=== PATIENT | male | born 1995 | race Caucasian/White ===

== ENCOUNTER 2016-03-22 07:13 | Inpatient (IN) | payer SELFPAY ==
[2016-03-22] MEDS ORDERED: ONDANSETRON HCL INJ/PF 4 MG/2 ML SDV IV ONE (08:00)
--- NOTE | 2016-03-22 08:02 | ER Document Report ---
ED General - General Mode of Arrival: Ambulatory Information source: Patient TRAVEL OUTSIDE OF THE [place] IN LAST 30 DAYS: No - HPI Patient complains to provider of: High Blood Sugar Onset: This morning - 06:00 Onset/Duration: Sudden Associated symptoms: Nausea, Vomiting <ELEUTERIO BLANCHARD - Last Filed: 03/22/16 08:03> <ONEL ROBERT - Last Filed: 03/22/16 09:46> - General Chief Complaint: High Blood Sugar Stated Complaint: VOMITING Notes: Patient is a 21-year-old male presenting to the emergency department due to problems with his blood sugar. Patient states that this started around 06:00 today. Patient denies missing any insulin. Patient is nauseous and vomiting. Patient states that his blood sugar was actually low this morning, but now it is extremely high at 583. (ELEUTERIO BLANCHARD) - Related Data Allergies/Adverse Reactions: No Known Allergies Allergy (Verified 03/22/16 07:30) Past Medical History - General Information source: Patient - Social History Smoking Status: Never Smoker Chew tobacco use (# tins/day): No Frequency of alcohol use: Occasional Drug Abuse: None Family History: Reviewed & Not Pertinent, DM, Hypertension Patient has suicidal ideation: No Patient has homicidal ideation: No - Past Medical History Cardiac Medical History: Reports: Hx Hypercholesterolemia Endocrine Medical History: Reports: Hx Diabetes Mellitus Type 1 Psychiatric Medical History: Reports: Hx Depression Past Surgical History: Reports: Hx Appendectomy - Immunizations Hx Diphtheria, Pertussis, Tetanus Vaccination: Yes Hx Pneumococcal Vaccination: 03/17/15 <ELEUTERIO BLANCHARD - Last Filed: 03/22/16 08:03> Review of Systems - Review of Systems Constitutional: See HPI, Other - High Blood Sugar EENT: No symptoms reported Cardiovascular: No symptoms reported Respiratory: No symptoms reported Gastrointestinal: See HPI, Nausea, Vomiting Genitourinary: No symptoms reported Male Genitourinary: No symptoms reported Musculoskeletal: No symptoms reported Skin: No symptoms reported Hematologic/Lymphatic: No symptoms reported Neurological/Psychological: No symptoms reported -: Yes All other systems reviewed and negative <ELEUTERIO BLANCHARD - Last Filed: 03/22/16 08:03> Physical Exam - Vital signs Interpretation: Hypertensive, Tachycardic, Tachypneic - General General appearance: Alert - HEENT Head: Normocephalic, Atraumatic Eyes: Normal Pupils: PERRL Mucous membranes: Dry - Respiratory Respiratory status: Tachypnea Chest status: Nontender Breath sounds: Normal Chest palpation: Normal - Cardiovascular Rhythm: Tachycardia Heart sounds: Normal auscultation Murmur: No - Abdominal Inspection: Normal Distension: No distension Bowel sounds: Normal Tenderness: Nontender Organomegaly: No organomegaly - Back Back: Normal, Nontender - Extremities General upper extremity: Normal inspection, Nontender, Normal color, Normal temperature. No: Edema General lower extremity: Normal inspection, Nontender, Normal color, Normal temperature. No: Edema - Neurological Neuro grossly intact: Yes Cognition: Normal [place] Coma Scale Eye Opening: Spontaneous [place] Coma Scale Verbal: Oriented [place] Coma Scale Motor: Obeys Commands [place] Coma Scale Total: 15 Speech: Normal - Psychological Associated symptoms: Normal affect, Normal mood - Skin Skin Temperature: Warm Skin Moisture: Dry Skin Color: Normal <ELEUTERIO BLANCHARD - Last Filed: 03/22/16 08:03> Course - Laboratory Result Diagrams: 03/22/16 09:00 03/22/16 07:45 - EKG Interpretation by Ia EKG shows normal: Sinus rhythm, [place], Intervals, QRS Complexes. abnormal: ST-T Waves - Borderline inferior T abnormalities Rate: Tachycardia - 132 When compared to previous EKG there are: No significant change - Consults Dr. Diallo Time consulted: 08:55 Consulted provider: will come to ER <ONEL ROBERT - Last Filed: 03/22/16 09:46> - Vital Signs Vital signs: Temp Pulse Resp BP Pulse Ox 97.5 F 153 H 12 137/61 H 99 03/22/16 07:29 03/22/16 07:29 03/22/16 09:00 03/22/16 08:31 03/22/16 09:00 (ELEUTERIO BLANCHARD) (ONEL ROBERT) - Laboratory Laboratory results interpreted by nc: 03/22/16 03/22/16 03/22/16 07:45 08:20 09:00 WBC 14.3 H Seg Neutrophils % 83.2 H Lymphocytes % 12.2 L Absolute Neutrophils 11.9 H VBG pH 7.11 L* VBG pCO2 22.6 L VBG HCO3 7.0 L Chloride 92 L Carbon Dioxide < 5 L* Glucose 625 H* POC Glucose Phosphorus 5.1 H Alkaline Phosphatase 133 H Creatine Kinase 33 L Urine Glucose (UA) Urine Ketones 03/22/16 03/22/16 09:00 09:24 WBC Seg Neutrophils % Lymphocytes % Absolute Neutrophils VBG pH VBG pCO2 VBG HCO3 Chloride Carbon Dioxide Glucose POC Glucose > 550 H* Phosphorus Alkaline Phosphatase Creatine Kinase Urine Glucose (UA) >=500 H Urine Ketones 80 H (ONEL ROBERT) Critical Care Note - Critical Care Note Total time excluding time spent on procedures (mins): 35 <ONEL ROBERT - Last Filed: 03/22/16 09:46> Discharge <ELEUTERIO BLANCHARD - Last Filed: 03/22/16 08:03> - Discharge Admitting Provider: Hospitalist Unit Admitted: [facility] <ONEL ROBERT - Last Filed: 03/22/16 09:46> - Discharge Clinical Impression: Diabetic ketoacidosis Condition: Fair Disposition: ADMITTED INPATIENT Scribe Attestation: 03/22/16 08:57 I personally performed the services described in the documentation, reviewed and edited the documentation which was dictated to the scribe in my presence, and it accurately records my words and actions. (ONEL ROBERT) Scribe Documentation - Scribe Written by Scribjuli:: Eleuterio Blanchard 03/22/2016 08:02 acting as scribe for :: Sujatha <ELEUTERIO BLANCHARD - Last Filed: 03/22/16 08:03>
[2016-03-22] MEDS ORDERED: INSULIN REG, HUMAN 100 UNIT/ML 3 ML VIAL (PYX) IV ONE (08:03)
[2016-03-22 08:19] LABS: ALANINE AMINOTRANSFERASE 42 U/L (21-72); ALBUMIN 4.9 g/dL (3.5-5.0); ALKALINE PHOSPHATASE 133 U/L (38-126); ASPARTATE AMINO TRANSFERASE 26 U/L (17-59); BILIRUBIN,TOTAL 0.7 mg/dL (0.2-1.3); BLOOD UREA NITROGEN 13 mg/dL (7-20); CALCIUM 10.1 mg/dL (8.4-10.2); CHLORIDE 92 mmol/L (98-107); CREATINE KINASE 33 U/L (55-170); CREATININE RESULT 0.89 mg/dL (0.52-1.25); MAGNESIUM 1.8 mg/dL (1.6-2.3); PHOSPHORUS 5.1 mg/dL (2.5-4.5); POTASSIUM 4.9 mmol/L (3.6-5.0); TOTAL PROTEIN 7.8 g/dL (6.3-8.2)
[2016-03-22] MEDS: NORMAL SALINE 1000 ML 1,000 ML IV PRN ×2 (08:20→22:15)
[2016-03-22 08:43] LABS: CARBON DIOXIDE < 5 mmol/L (22-30); GLUCOSE 625 mg/dL (75-110)
[2016-03-22 08:51] LABS: VENOUS BLOOD BASE EXCESS -20.7 mmol/L; VENOUS BLOOD PCO2 22.6 mmHg (35-63)
[2016-03-22 08:52] LABS: VENOUS BLOOD PH 7.11 (7.30-7.42)
[2016-03-22 09:24] LABS: ABSOLUTE LYMPHOCYTES (AUTO) 1.8 10^3/uL (0.5-4.7); ABSOLUTE MONOCYTES (AUTO) 0.6 10^3/uL (0.1-1.4); ABSOLUTE NEUT (AUTO) 11.9 10^3/uL (1.7-8.2); BASOPHILS % (AUTO) 0.2 % (0-2); HEMATOCRIT 43.8 % (37.9-51.0); HEMOGLOBIN 14.5 g/dL (13.5-17.0); HGB HCT DIFFERENCE -0.3; LYMPHOCYTES % (AUTO) 12.2 % (13-45); MEAN CORPUSCULAR HEMOGLOBIN 31.6 pg (27.0-33.4); MEAN CORPUSCULAR HGB CONC 33.1 g/dL (32.0-36.0); MONOCYTES % (AUTO) 4.4 % (3-13); RED BLOOD COUNT 4.58 10^6/uL (4.35-5.55); RED CELL DISTRIBUTION WIDTH 13.9 % (11.5-14.0); SEGMENTED NEUTROPHILS % (AUTO) 83.2 % (42-78); WHITE BLOOD COUNT 14.3 10^3/uL (4.0-10.5)
[2016-03-22 09:28] LABS: APPEARANCE,URINE CLEAR; BILIRUBIN,URINE NEGATIVE (NEGATIVE); GLUCOSE, URINE >=500 mg/dL (NEGATIVE); KETONES,URINE 80 mg/dL (NEGATIVE); LEUKOCYTE ESTERASE,URINE NEGATIVE (NEGATIVE); NITRITE,URINE NEGATIVE (NEGATIVE); PROTEIN,URINE NEGATIVE (NEGATIVE); URINE SPECIFIC GRAVITY 1.024; UROBILINOGEN,URINE NEGATIVE mg/dL (<2.0)
[2016-03-22 09:35] LABS: MEAN CORPUSCULAR VOLUME 96 fl (80-97)
[2016-03-22] MEDS ORDERED: ACETAMINOPHEN 325 MG TABLET PO PRN (09:38)
[2016-03-22] MEDS ORDERED: ONDANSETRON HCL INJ/PF 4 MG/2 ML SDV IV PRN (09:38)
[2016-03-22] MEDS ORDERED: NORMAL SALINE 1000 ML 1,000 ML IV PRN (09:38)
[2016-03-22] MEDS ORDERED: GLUCAGON,HUMAN RECOMB 1 MG INJ IM PRN ×2 (09:43→19:58)
[2016-03-22] MEDS ORDERED: NORMAL SALINE 100 ML with INSULIN REGULAR, HUMAN 100 UNIT IV PRN ×2 (09:43)
[2016-03-22] MEDS ORDERED: DEXTROSE 50%-WATER 25 GM/50 ML DISP.SYRIN IV PRN ×4 (09:43→19:58)
[2016-03-22] MEDS ORDERED: DEXTROSE 40% GEL 15 GM TUBE PO PRN ×4 (09:43→19:58)
--- NOTE | 2016-03-22 10:18 | EKG REPORT ---
SEVERITY:- BORDERLINE ECG - SINUS TACHYCARDIA BORDERLINE T ABNORMALITIES, INFERIOR LEADS : Confirmed by: Anurag Mata 22-Mar-2016 10:17:58
--- NOTE | 2016-03-22 12:11 | PDOC H&P ---
History of Present Illness Admission Date/PCP: 03/22/16 09:32 Patient complains of: Elevated blood sugars. History of Present Illness: ACE POSADA is a 21 year old male who has had multiple admissions over the last year for diabetic ketoacidosis. The patient was last discharged from this hospital on 03/07/2016. Patient reports that since his discharge in February he has been doing relatively well until yesterday. He began to feel nauseous yesterday and this morning has had problems with vomiting nausea as well as some abdominal discomfort. Patient reports his blood sugars have been reading high at home. The patient when he presented to emergency room was found to have DKA with bicarbonate less than 5. Patient denies any fevers or chills or cough. He denies any dysuria but does have polyuria and polydipsia. Patient denies abdominal pain. Denies any diarrhea or melena. He denies being around anybody who is sick. Past Medical History Cardiac Medical History: Reports: Hyperlipidema EENT Medical History: Reports: None Neurological Medical History: Reports: None Endocrine Medical History: Reports: Diabetes Mellitus Type 1 Renal/ Medical History: Reports: None Malignancy Medical History: Reports: None GI Medical History: Reports: None Skin Medical History: Reports: None Psychiatric Medical History: Reports: Depression Traumatic Medical History: Reports: None Infectious Medical History: Reports: None Past Surgical History Past Surgical History: Reports: Appendectomy Social History Information Source: Patient Lives with: Family Smoking Status: Never Smoker Frequency of Alcohol Use: Rare Hx Recreational Drug Use: No Drugs: None Hx Prescription Drug Abuse: No - Advance Directive Resuscitation Status: Full Code Family History Family History: DM, Hypertension Parental Family History Reviewed: Yes Children Family History Reviewed: No Sibling(s) Family History Reviewed.: No Medication/Allergy Home Medications: Cholecalciferol (Vitamin D3) [D3-2000] 2,000 units PO DAILY 03/22/16 Citalopram Hydrobromide [Celexa 40 mg Tablet] 40 mg PO DAILY 03/22/16 Insulin Aspart [Novolog Insulin (Aspart) 100 unit/mL] See Protocol SQ ASDIR PRN 03/22/16 Insulin Glargine,Hum.rec.anlog [Lantus Solostar] 40 units SQ Q12 03/22/16 Allergies/Adverse Reactions: No Known Allergies Allergy (Verified 03/22/16 07:30) Review of Systems Constitutional: ABSENT: chills, fever(s), headache(s), weight gain, weight loss Eyes: ABSENT: visual disturbances Ears: ABSENT: hearing changes Cardiovascular: ABSENT: chest pain, dyspnea on exertion, edema, orthropnea, palpitations Respiratory: PRESENT: cough. ABSENT: dyspnea, hemoptysis Gastrointestinal: PRESENT: abdominal pain, heartburn, nausea. ABSENT: hematochezia, melena, vomiting Musculoskeletal: ABSENT: joint swelling Integumentary: ABSENT: rash, wounds Psychiatric: PRESENT: depression Endocrine: PRESENT: polydipsia, polyphagia, polyuria Hematologic/Lymphatic: ABSENT: easy bleeding, easy bruising Physical Exam Vital Signs: Temp Pulse Resp BP Pulse Ox 97.5 F 153 H 14 146/85 H 100 03/22/16 07:29 03/22/16 07:29 03/22/16 10:01 03/22/16 10:01 03/22/16 10:01 General appearance: PRESENT: well-developed, well-nourished Head exam: PRESENT: atraumatic, normocephalic Eye exam: PRESENT: conjunctiva pink, EOMI, PERRLA. ABSENT: scleral icterus Ear exam: PRESENT: normal external ear exam Mouth exam: PRESENT: dry mucosa Neck exam: ABSENT: carotid bruit, JVD, lymphadenopathy, thyromegaly Respiratory exam: PRESENT: clear to auscultation saul. ABSENT: rales, rhonchi, wheezes Cardiovascular exam: PRESENT: RRR. ABSENT: diastolic murmur, rubs, systolic murmur Pulses: PRESENT: normal dorsalis pedis pul GI/Abdominal exam: PRESENT: normal bowel sounds, soft. ABSENT: distended, guarding, mass, organolmegaly, rebound, tenderness Rectal exam: PRESENT: deferred Extremities exam: ABSENT: calf tenderness, clubbing, pedal edema Neurological exam: PRESENT: alert, awake, oriented to person, oriented to place , oriented to time, oriented to situation Psychiatric exam: PRESENT: appropriate affect Skin exam: PRESENT: dry, intact, warm. ABSENT: cyanosis, rash Assessment & Plan - Diagnosis (1) DKA (diabetic ketoacidoses) Qualifiers: Diabetes mellitus type: type 1 Diabetes mellitus complication detail: without coma Qualified Code(s): E10.10 - Type 1 diabetes mellitus with ketoacidosis without coma Is this a current diagnosis for this admission?: YesPlan: Patient has relatively sudden onset of nausea vomiting crampy abdominal pain all suggestive of either a viral gastritis versus gastroparesis given his long history diabetes. We will continue with IV fluids as started emergency. Also continue with an insulin drip per protocol. Will check fingerstick blood sugars every hour and check chemistry labs every 4 hours. (2) IDDM (insulin dependent diabetes mellitus) Is this a current diagnosis for this admission?: YesPlan: Patient reports that he's been compliant with his outpatient insulin. (4) DVT prophylaxis Is this a current diagnosis for this admission?: YesPlan: Patient is ambulatory and does not need DVT prophylaxis this time. (5) Anxiety and depression Is this a current diagnosis for this admission?: YesPlan: Stable - Time Time Spent: 50 to 70 Minutes - Inpatient Certification Medical Necessity: Need For IV Fluids
[2016-03-22] MEDS ORDERED: DEXTROSE 5%-1/2 NORMAL SALINE 1,000 ML IV PRN (17:39)
[2016-03-22] MEDS: FAMOTIDINE INJ/PF 20 MG/2 ML SDV IV SCH ×2 (18:33→22:14)
[2016-03-22 19:22] LABS: ANION GAP 14 (5-19); BLOOD UREA NITROGEN 8 mg/dL (7-20); CALCIUM 8.6 mg/dL (8.4-10.2); CHLORIDE 103 mmol/L (98-107); CREATININE RESULT 0.65 mg/dL (0.52-1.25); GLUCOSE 86 mg/dL (75-110); SODIUM 137.7 mmol/L (137-145)
[2016-03-22 19:43] LABS: CARBON DIOXIDE 21 mmol/L (22-30); POTASSIUM 3.9 mmol/L (3.6-5.0)
[2016-03-22] MEDS: INSULIN GLARGINE,HUM.REC.ANLOG 300 UNIT/3 ML INSULN.PEN SUBCUT SCH (22:14)
[2016-03-22] MEDS: INSULIN LISPRO 100 UNIT/ML 3 ML VIAL SUBCUT PRN (22:14)
[2016-03-22 22:31] LABS: ANION GAP 16 (5-19); BLOOD UREA NITROGEN 10 mg/dL (7-20); CALCIUM 8.9 mg/dL (8.4-10.2); CARBON DIOXIDE 17 mmol/L (22-30); CHLORIDE 101 mmol/L (98-107); CREATININE RESULT 0.73 mg/dL (0.52-1.25); GLUCOSE 226 mg/dL (75-110); SODIUM 134.4 mmol/L (137-145)
[2016-03-23] MEDS: INSULIN LISPRO 100 UNIT/ML 3 ML VIAL SUBCUT PRN (04:20)
[2016-03-23 05:06] LABS: HEMATOCRIT 35.2 % (37.9-51.0); HGB HCT DIFFERENCE 1.4; MEAN CORPUSCULAR HEMOGLOBIN 31.4 pg (27.0-33.4); MEAN CORPUSCULAR HGB CONC 34.5 g/dL (32.0-36.0); RED BLOOD COUNT 3.86 10^6/uL (4.35-5.55); RED CELL DISTRIBUTION WIDTH 13.6 % (11.5-14.0); WHITE BLOOD COUNT 7.9 10^3/uL (4.0-10.5)
[2016-03-23 05:07] LABS: HEMOGLOBIN 12.2 g/dL (13.5-17.0); MEAN CORPUSCULAR VOLUME 91 fl (80-97)
[2016-03-23 05:10] LABS: ANION GAP 11 (5-19); BLOOD UREA NITROGEN 13 mg/dL (7-20); CALCIUM 9.3 mg/dL (8.4-10.2); CARBON DIOXIDE 20 mmol/L (22-30); CHLORIDE 103 mmol/L (98-107); CREATININE RESULT 0.68 mg/dL (0.52-1.25); GLUCOSE 250 mg/dL (75-110); POTASSIUM 4.3 mmol/L (3.6-5.0); SODIUM 134.4 mmol/L (137-145)
[2016-03-23 09:02] VITALS: BP 140/69
--- NOTE | 2016-03-23 09:48 | PDOC DISCHARGE SUMMARY ---
General - Admit/Disc Date/PCP Admission Date/Primary Care Provider: 03/22/16 09:32 Discharge Date: 03/23/16 - Discharge Diagnosis (1) DKA (diabetic ketoacidoses) Is this a current diagnosis for this admission?: Yes (2) IDDM (insulin dependent diabetes mellitus) Is this a current diagnosis for this admission?: Yes (4) DVT prophylaxis Is this a current diagnosis for this admission?: Yes (5) Anxiety and depression Is this a current diagnosis for this admission?: Yes - Additional Information Resuscitation Status: Full Code Discharge Diet: Diabetic Discharge Activity: Activity As Tolerated Home Medications: Cholecalciferol (Vitamin D3) [D3-2000] 2,000 units PO DAILY 03/22/16 Citalopram Hydrobromide [Celexa 40 mg Tablet] 40 mg PO DAILY 03/22/16 Insulin Aspart [Novolog Insulin (Aspart) 100 unit/mL] See Protocol SQ ASDIR PRN 03/22/16 Insulin Glargine,Hum.rec.anlog [Lantus Solostar] 40 units SQ Q12 #1 ml 03/23/16 History of Present Illness History of Present Illness: ACE POSADA is a 21 year old male who has had multiple admissions over the last year for diabetic ketoacidosis. The patient was last discharged from this hospital on 03/07/2016. Patient reports that since his discharge in February he has been doing relatively well until yesterday. He began to feel nauseous yesterday and this morning has had problems with vomiting nausea as well as some abdominal discomfort. Patient reports his blood sugars have been reading high at home. The patient when he presented to emergency room was found to have DKA with bicarbonate less than 5. Patient denies any fevers or chills or cough. He denies any dysuria but does have polyuria and polydipsia. Patient denies abdominal pain. Denies any diarrhea or melena. He denies being around anybody who is sick. Hospital Course Hospital Course: 21-year-old gentleman who presented with DKA. Patient was started on IV fluids and an insulin drip and had quick resolution of his DKA. Patient was put back on his usual dose of Lantus and had no further evidence of hyperglycemia. The patient reports she's been compliant with his medications although his sugars was normalized when he is put on his usual home dose here at the hospital. I have recommended the patient that he go to [place] to be evaluated by endocrinology. He currently does not have medical insurance [facility]. Physical Exam Vital Signs: Temp Pulse Resp BP Pulse Ox 98.0 F 81 18 140/69 H 98 03/23/16 09:00 03/23/16 09:00 03/23/16 09:00 03/23/16 09:00 03/23/16 09:00 Intake & Output 03/22/16 03/23/16 03/24/16 06:59 06:59 06:59 Intake Total 2466 Output Total 1580 Balance 886 Weight 65.5 kg General appearance: PRESENT: no acute distress Eye exam: PRESENT: conjunctiva pink Mouth exam: PRESENT: moist, tongue midline Neck exam: ABSENT: JVD Respiratory exam: PRESENT: clear to auscultation saul. ABSENT: rales, rhonchi, wheezes Cardiovascular exam: PRESENT: RRR. ABSENT: diastolic murmur, rubs, systolic murmur GI/Abdominal exam: PRESENT: normal bowel sounds, soft. ABSENT: distended, guarding, mass, organolmegaly, rebound, tenderness Extremities exam: ABSENT: calf tenderness, clubbing, pedal edema Neurological exam: PRESENT: alert, awake Psychiatric exam: PRESENT: appropriate affect Skin exam: PRESENT: dry, intact, warm. ABSENT: cyanosis, rash Results Laboratory Results: 03/23/16 04:20 03/23/16 04:20 03/22/16 03/22/16 03/23/16 18:36 22:08 04:20 WBC 7.9 RBC 3.86 L Hgb 12.2 L D Hct 35.2 L MCV 91 D MCH 31.4 MCHC 34.5 RDW 13.6 Plt Count 265 Sodium 137.7 134.4 L Potassium 3.9 D 4.0 Chloride 103 101 Carbon Dioxide 21 L D 17 L Anion Gap 14 16 BUN 8 10 Creatinine 0.65 0.73 Est GFR ( Amer) > 60 > 60 Est GFR (Non-Af Amer) > 60 > 60 Glucose 86 226 H Calcium 8.6 8.9 03/23/16 04:20 WBC RBC Hgb Hct MCV MCH MCHC RDW Plt Count Sodium 134.4 L Potassium 4.3 Chloride 103 Carbon Dioxide 20 L Anion Gap 11 BUN 13 Creatinine 0.68 Est GFR ( Amer) > 60 Est GFR (Non-Af Amer) > 60 Glucose 250 H Calcium 9.3 Qualifiers [place] BEING DISCHARGED WITH ANY OF THE FOLLOWING DIAGNOSIS?: No Plan Discharge Plan: Patient is discharged to home. Time Spent: Less than 30 Minutes
[2016-03-23] MEDS: INSULIN GLARGINE,HUM.REC.ANLOG 300 UNIT/3 ML INSULN.PEN SUBCUT SCH (10:22)
[2016-03-23] MEDS: FAMOTIDINE INJ/PF 20 MG/2 ML SDV IV SCH (10:24)
== END 2016-03-23 10:45 | disposition home or self-care (01) | DRG 639 ==
LOC: ER 07:13 → EH 09:32 → UNDOADMIN 09:51 → EH 10:39 → 3N 10:39
PROVIDERS: ADMIT Internal Medicine; ATTEND Internal Medicine
DX: E10.10 Type 1 diabetes mellitus with ketoacidosis without coma (principal); E78.5 Hyperlipidemia, unspecified; F41.9 Anxiety disorder, unspecified; F32.9 Major depressive disorder, single episode, unspecified; Z79.4 Long term (current) use of insulin; Z90.49 Acquired absence of other specified parts of digestive tract; Z83.3 Family history of diabetes mellitus; Z82.49 Family history of ischemic heart disease and other diseases of the circulatory system; Z59.9 Problem related to housing and economic circumstances, unspecified
CPT/HCPCS: 36415; 80048; 80053; 81001; 82550; 82803; 82962; 83735; 84100; 85025; 85027; 87040; 93005; 93010; 96361; 96374; 99291; J1815; J2405; J3490; J7030; S0028

== ENCOUNTER 2016-04-04 13:26 | Emergency (ER) | payer SELFPAY ==
[2016-04-04] MEDS ORDERED: NORMAL SALINE 1000 ML 1,000 ML IV PRN ×2 (13:48→15:18)
[2016-04-04] MEDS ORDERED: ONDANSETRON HCL INJ/PF 4 MG/2 ML SDV IV ONE (13:48)
--- NOTE | 2016-04-04 13:58 | ER Document Report ---
ED General - General Chief Complaint: High Blood Sugar Stated Complaint: BLOOD SUGAR ISSUES Time seen by provider: 13:45 Mode of Arrival: Medic Information source: Patient Notes: 21-year-old male with history of type I diabetes and multiple admissions for DKA who presents reporting his blood sugar read high on his meter this morning. Patient reports he has been compliant with his diabetic medications and diet. He took NovoLog 10 units about 10:00 this morning and then at 10:30 his glucose About 240 11:00 it was 420. And at 11:30 was too high to read. On arrival here is 238. The patient reports she's had nonproductive cough for 2 day but denies fever, chills, diarrhea, earache, sore throat, chest pain, abdominal pain , or back pain. He has had some mild nausea this morning but no vomiting. He reports being in usual state of health otherwise recently Physical Exam: General: Alert, appears well. HEENT: Normocephalic. Atraumatic. PERRLA. Extraocular movements intact. Oropharynx clear. Neck: Supple. Non-tender. Respiratory: No respiratory distress. Clear and equal breath sounds bilaterally. Cardiovascular: Regular rate and rhythm. Abdominal: Normal Inspection. Soft, non-tender. No distension. Normal Bowel Sounds. Back: Non-tender. No deformity or step off. Extremities: Moves all four extremities. Upper extremities: Normal inspection. Non-tender. Normal color. Normal ROM. Normal temperature. Lower extremities: Normal inspection. Non-tender. No edema. Normal color. Normal ROM. Normal temperature. Neurological: Cranial nerves II-XII grossly intact bilaterally. Strength 5/5 throughout. Sensation intact to light touch. Normal cognition. AAOx4. Normal speech. Psychological: Normal affect. Normal Mood. Skin: Warm. Dry. Normal color. TRAVEL OUTSIDE OF THE [place] IN LAST 30 DAYS: No - Related Data Allergies/Adverse Reactions: No Known Allergies Allergy (Verified 03/22/16 07:30) Past Medical History - Social History Smoking Status: Never Smoker Family History: DM, Hypertension - Past Medical History Cardiac Medical History: Reports: Hx Hypercholesterolemia Endocrine Medical History: Reports: Hx Diabetes Mellitus Type 1 Psychiatric Medical History: Reports: Hx Depression Past Surgical History: Reports: Hx Appendectomy - Immunizations Hx Diphtheria, Pertussis, Tetanus Vaccination: Yes Hx Pneumococcal Vaccination: 03/17/15 Review of Systems - Review of Systems Constitutional: denies: Chills, Fever EENT: denies: Ear pain, Throat pain Cardiovascular: denies: Chest pain, Dyspnea Respiratory: Cough. denies: Short of breath Gastrointestinal: Nausea. denies: Abdominal pain, Diarrhea, Vomiting Genitourinary: denies: Burning, Dysuria Hematologic/Lymphatic: denies: Swollen glands Neurological/Psychological: denies: Weakness, Numbness Physical Exam - Vital signs Vitals: Resp Pulse Ox 14 99 04/04/16 13:45 04/04/16 13:45 Course - Re-evaluation Re-evalutation: 04/04/16 18:29 Patient's initial labs are my opinion borderline admission for DKA. Review patient's charts and discussed case with Dr. Heath for the hospitalist service given his multiple prior admissions for DKA and his obvious noncompliance in spite of his protestations to the contrary. Think there is a certain futility and admitting him in his current state given the fact that he is likely close to where he always lives in a Patient in emergent department with aggressive IV hydration. Without any other interventions his glucose is coming down 120 and repeat basic metabolic panel shows an improvement in his total CO2 and resolution of his anion gap. I believe at this point he is safe for discharge and while he is not 100% normal he is likely about as good as he is going to get. Mother is in the room and I discussed with both of them the importance of frequent blood sugar checks and compliance with his diabetic regimen as this is a life-threatening condition that will cut his life short swiftly if he does not do a better job of managing his glucose. He indicates agreement. - Vital Signs Vital signs: Temp Pulse Resp BP Pulse Ox 97.5 F 102 H 12 125/69 100 04/04/16 13:59 04/04/16 13:59 04/04/16 18:00 04/04/16 17:01 04/04/16 18:00 - Laboratory Result Diagrams: 04/04/16 13:50 04/04/16 17:45 Laboratory results interpreted by me: 04/04/16 04/04/16 04/04/16 13:50 13:50 14:20 Carbonic Acid ABG pH ABG pCO2 ABG pO2 ABG HCO3 ABG Total CO2 Chloride 97 L Carbon Dioxide 16 L Anion Gap 24 H Glucose 239 H POC Glucose 238 H Albumin 5.2 H Urine Glucose (UA) >=500 H Urine Ketones 80 H 04/04/16 04/04/16 04/04/16 15:45 16:51 17:45 Carbonic Acid 1.03 L ABG pH 7.33 L ABG pCO2 34.2 L ABG pO2 103.7 H ABG HCO3 17.7 L ABG Total CO2 18.8 L Chloride Carbon Dioxide 19 L Anion Gap Glucose POC Glucose 121 H Albumin Urine Glucose (UA) Urine Ketones - Diagnostic Test Radiology reviewed: Image reviewed, Reports reviewed Discharge - Discharge Clinical Impression: Hyperglycemia due to type 1 diabetes mellitus Condition: Stable Disposition: HOME, SELF-CARE Additional Instructions: Diabetes You have an abnormally high blood sugar, suspicious for diabetes. Not all high blood sugar requires long-term treatment. High blood sugar can be due to medications, , or the stress of illness. (These cases are "borderline diabetes.") If the doctor feels your high blood sugar might get better with time, you may not require treatment now. You will be scheduled for further evaluation. It's very important that you follow through. Uncontrolled high blood sugar leads to early heart disease , strokes, nerve damage, eye damage, and kidney damage. All diabetics should follow a diet designed to control the blood sugar. Overweight diabetics should exercise regularly and lose weight. If this is not sufficient to control the blood sugar, pills or insulin shots are necessary. Younger people who develop diabetes almost always require insulin daily. Home testing of blood sugars or urine sugar is required. Diabetic teaching is available to help you figure insulin doses and monitor the blood sugar. Call the physician if there is faintness, excess sleepiness, or very rapid breathing. If hypoglycemia (LOW blood sugar) develops, symptoms are shakiness, weakness, sweating, and confusion. In this case, you should eat or drink something with sugar at once. Referrals: PELON FREEMAN MD [HONORARY] - Follow up in 1 week
[2016-04-04 14:17] LABS: ABSOLUTE LYMPHOCYTES (AUTO) 3.2 10^3/uL (0.5-4.7); ABSOLUTE MONOCYTES (AUTO) 0.5 10^3/uL (0.1-1.4); ABSOLUTE NEUT (AUTO) 5.8 10^3/uL (1.7-8.2); BASOPHILS % (AUTO) 0.4 % (0-2); HEMATOCRIT 45.3 % (37.9-51.0); HEMOGLOBIN 14.6 g/dL (13.5-17.0); HGB HCT DIFFERENCE -1.5; LYMPHOCYTES % (AUTO) 33.7 % (13-45); MEAN CORPUSCULAR HEMOGLOBIN 30.3 pg (27.0-33.4); MEAN CORPUSCULAR HGB CONC 32.3 g/dL (32.0-36.0); MEAN CORPUSCULAR VOLUME 94 fl (80-97); MONOCYTES % (AUTO) 5.2 % (3-13); RED BLOOD COUNT 4.82 10^6/uL (4.35-5.55); RED CELL DISTRIBUTION WIDTH 13.5 % (11.5-14.0); SEGMENTED NEUTROPHILS % (AUTO) 60.7 % (42-78); WHITE BLOOD COUNT 9.6 10^3/uL (4.0-10.5)
[2016-04-04 14:27] LABS: ALANINE AMINOTRANSFERASE 29 U/L (21-72); ALBUMIN 5.2 g/dL (3.5-5.0); ALKALINE PHOSPHATASE 86 U/L (38-126); ASPARTATE AMINO TRANSFERASE 22 U/L (17-59); BILIRUBIN,TOTAL 1.1 mg/dL (0.2-1.3); BLOOD UREA NITROGEN 17 mg/dL (7-20); CALCIUM 10.2 mg/dL (8.4-10.2); CARBON DIOXIDE 16 mmol/L (22-30); CHLORIDE 97 mmol/L (98-107); CREATININE RESULT 0.71 mg/dL (0.52-1.25); GLUCOSE 239 mg/dL (75-110); MAGNESIUM 1.6 mg/dL (1.6-2.3); POTASSIUM 4.4 mmol/L (3.6-5.0); SODIUM 137.4 mmol/L (137-145); TOTAL PROTEIN 7.8 g/dL (6.3-8.2)
[2016-04-04 14:33] LABS: ANION GAP 24 (5-19)
[2016-04-04 14:46] LABS: APPEARANCE,URINE CLEAR; BILIRUBIN,URINE NEGATIVE (NEGATIVE); GLUCOSE, URINE >=500 mg/dL (NEGATIVE); KETONES,URINE 80 mg/dL (NEGATIVE); LEUKOCYTE ESTERASE,URINE NEGATIVE (NEGATIVE); NITRITE,URINE NEGATIVE (NEGATIVE); PROTEIN,URINE NEGATIVE (NEGATIVE); URINE SPECIFIC GRAVITY 1.026; UROBILINOGEN,URINE NEGATIVE mg/dL (<2.0)
[2016-04-04 16:02] LABS: ARTERIAL BLOOD BASE EXCESS -7.3 mmol/L; ARTERIAL BLOOD O2 SATURATION 97.5 % (94-98)
[2016-04-04 18:14] LABS: ANION GAP 14 (5-19); BLOOD UREA NITROGEN 14 mg/dL (7-20); CALCIUM 8.9 mg/dL (8.4-10.2); CARBON DIOXIDE 19 mmol/L (22-30); CHLORIDE 104 mmol/L (98-107); CREATININE RESULT 0.62 mg/dL (0.52-1.25); GLUCOSE 93 mg/dL (75-110); SODIUM 137.2 mmol/L (137-145)
[2016-04-04 18:23] VITALS: BP 125/69
== END 2016-04-04 18:49 | disposition home or self-care (01) ==
LOC: ER 13:26
DX: E10.65 Type 1 diabetes mellitus with hyperglycemia (principal); R11.0 Nausea; R05 Cough; E78.00 Pure hypercholesterolemia, unspecified; Z79.4 Long term (current) use of insulin
CPT/HCPCS: 99285; 96361; 96374; 36415; 82962; 82803; 83690; 83735; 85025; 80048; 80053; 81001; 71010; J2405; J7030

== ENCOUNTER 2016-04-05 02:48 | Inpatient (IN) | payer SELFPAY ==
[2016-04-05] MEDS ORDERED: NORMAL SALINE 1000 ML 1,000 ML IV ONE ×3 (03:24→05:17)
--- NOTE | 2016-04-05 03:27 | ER Document Report ---
ED Blood Sugar Problem - General Chief Complaint: High Blood Sugar Stated Complaint: BLOOD SUGAR PROBLEMS Mode of Arrival: Ambulatory Information source: Patient Notes: Pt is a 21 year old male who presents to the ER today for elevated sugar readings at home, nausea, vomiting. Patient has a history of type I diabetes and has been admitted here multiple times for diabetic ketoacidosis. He admits to multiple episodes of vomiting. He states that he took 40 units of Lantus at bedtime as usual and 10 units of NovoLog at dinnertime as usual. TRAVEL OUTSIDE OF THE [place] IN LAST 30 DAYS: No - Related Data Allergies/Adverse Reactions: No Known Allergies Allergy (Verified 03/22/16 07:30) Past Medical History - General Information source: Patient - Social History Smoking Status: Never Smoker Frequency of alcohol use: None Drug Abuse: None Family History: DM, Hypertension - Past Medical History Cardiac Medical History: Reports: Hx Hypercholesterolemia Endocrine Medical History: Reports: Hx Diabetes Mellitus Type 1 Renal/ Medical History: Denies: Hx Peritoneal Dialysis Psychiatric Medical History: Reports: Hx Depression Past Surgical History: Reports: Hx Appendectomy - Immunizations Hx Diphtheria, Pertussis, Tetanus Vaccination: Yes Hx Pneumococcal Vaccination: 03/17/15 Review of Systems - Review of Systems Constitutional: No symptoms reported EENT: No symptoms reported Cardiovascular: No symptoms reported Respiratory: No symptoms reported Gastrointestinal: See HPI Genitourinary: No symptoms reported Male Genitourinary: No symptoms reported Musculoskeletal: No symptoms reported Skin: No symptoms reported Hematologic/Lymphatic: No symptoms reported Neurological/Psychological: No symptoms reported Physical Exam - Vital signs Vitals: Temp Pulse Resp BP Pulse Ox 97.6 F 133 H 18 153/90 H 99 04/05/16 02:55 04/05/16 02:55 04/05/16 02:55 04/05/16 02:55 04/05/16 02:55 - Notes Notes: PHYSICAL EXAMINATION: GENERAL: shaking, ill appearing, and in mild acute distress. HEAD: Atraumatic, normocephalic. EYES: Pupils equal round and reactive to light, extraocular movements intact, sclera anicteric, conjunctiva are normal. NECK: Normal range of motion, supple without lymphadenopathy LUNGS: CTAB and equal. No wheezes rales or rhonchi. HEART: tachycardic with regular rhythm without murmurs ABDOMEN: Soft, no tenderness. No guarding, no rebound BACK: no vertebral tenderness, normal ROM GI/: no CVA tenderness EXTREMITIES: Normal range of motion, no pitting edema. No cyanosis. NEUROLOGICAL: Cranial nerves grossly intact. Normal sensory/motor exams. SKIN: Warm, Dry, normal turgor, no rashes or lesions noted Course - Re-evaluation Re-evalutation: 04/05/16 05:41 Pt is in DKA with an elevated WBC, potassium is 5.4, accucheck was initially 583 and a serum glucose was 641 initially. pH os 7.08 and bicarb of 20.9 on ABG. Pt tachycardic at 131bpm. He is complaining of headache here and dry mouth. Dr. Martinez agrees to admit pt for DKA at this time. insulin drip has been hung, 3 boluses of IV fluids have been given, continuous fluids ordered before admission. Dr. Daniel consulted on this case and agrees with care, evaluated pt and documented note. 04/05/16 05:43 04/05/16 05:43 04/05/16 05:45 - Vital Signs Vital signs: Temp Pulse Resp BP Pulse Ox 97.6 F 133 H 13 157/58 H 100 04/05/16 02:55 04/05/16 02:55 04/05/16 05:03 04/05/16 05:03 04/05/16 05:03 - Laboratory Result Diagrams: 04/05/16 03:30 04/05/16 03:30 Laboratory results interpreted by me: 04/05/16 04/05/16 04/05/16 03:30 03:30 04:10 WBC 12.7 H MCV 98 H D MCHC 31.7 L RDW 14.1 H Carbonic Acid ABG pH ABG pCO2 ABG pO2 ABG HCO3 ABG Total CO2 Potassium 5.4 H D Chloride 96 L Carbon Dioxide 9 L* D Anion Gap 32 H Glucose 649 H* Serum Osmolality Lactic Acid Calcium 10.6 H Phosphorus ALT 20 L Albumin 5.2 H Urine Glucose (UA) >=500 H Urine Ketones 80 H 04/05/16 04/05/16 04/05/16 04:38 05:00 05:00 WBC MCV MCHC RDW Carbonic Acid 0.63 L ABG pH 7.08 L* ABG pCO2 20.9 L* ABG pO2 119.4 H ABG HCO3 6.0 L ABG Total CO2 6.6 L Potassium Chloride Carbon Dioxide Anion Gap Glucose Serum Osmolality 332 H Lactic Acid 3.9 H Calcium Phosphorus ALT Albumin Urine Glucose (UA) Urine Ketones 04/05/16 05:00 WBC MCV MCHC RDW Carbonic Acid ABG pH ABG pCO2 ABG pO2 ABG HCO3 ABG Total CO2 Potassium Chloride Carbon Dioxide Anion Gap Glucose Serum Osmolality Lactic Acid Calcium Phosphorus 5.8 H ALT Albumin Urine Glucose (UA) Urine Ketones Critical Care Note - Critical Care Note Total time excluding time spent on procedures (mins): 45 - 45 minutes spent in critical care time with patient, consulted with attending, speaking with family , placing orders and evaluating tests and labs. Discharge - Discharge Clinical Impression: Diabetic ketoacidosis Qualifiers: Diabetes mellitus type: type 1 Diabetes mellitus complication detail: without coma Qualified Code(s): E10.10 - Type 1 diabetes mellitus with ketoacidosis without coma Condition: Stable Disposition: ADMITTED INPATIENT Admitting Provider: Hospitalist Unit Admitted: [facility], [place]
[2016-04-05] MEDS ORDERED: INSULIN REG, HUMAN 100 UNIT/ML 3 ML VIAL (PYX) IV ONE ×2 (03:39→04:48)
[2016-04-05 03:55] LABS: ABSOLUTE EOSINOPHILS # (AUTO) 0.1 10^3/uL (0.0-0.6); ABSOLUTE LYMPHOCYTES (AUTO) 4.6 10^3/uL (0.5-4.7); ABSOLUTE MONOCYTES (AUTO) 0.5 10^3/uL (0.1-1.4); ABSOLUTE NEUT (AUTO) 7.4 10^3/uL (1.7-8.2); BASOPHILS % (AUTO) 0.3 % (0-2); EOSINOPHILS % (AUTO) 0.4 % (0-6); HEMATOCRIT 49.2 % (37.9-51.0); HEMOGLOBIN 15.6 g/dL (13.5-17.0); HGB HCT DIFFERENCE -2.4; LYMPHOCYTES % (AUTO) 36.3 % (13-45); MEAN CORPUSCULAR HEMOGLOBIN 31.1 pg (27.0-33.4); MEAN CORPUSCULAR HGB CONC 31.7 g/dL (32.0-36.0); MONOCYTES % (AUTO) 4.3 % (3-13); RED BLOOD COUNT 5.02 10^6/uL (4.35-5.55); RED CELL DISTRIBUTION WIDTH 14.1 % (11.5-14.0); SEGMENTED NEUTROPHILS % (AUTO) 58.7 % (42-78); WHITE BLOOD COUNT 12.7 10^3/uL (4.0-10.5)
[2016-04-05 03:57] LABS: MEAN CORPUSCULAR VOLUME 98 fl (80-97)
[2016-04-05 04:07] LABS: ALANINE AMINOTRANSFERASE 20 U/L (21-72); ALBUMIN 5.2 g/dL (3.5-5.0); ALKALINE PHOSPHATASE 123 U/L (38-126); ASPARTATE AMINO TRANSFERASE 29 U/L (17-59); BLOOD UREA NITROGEN 14 mg/dL (7-20); CALCIUM 10.6 mg/dL (8.4-10.2); CREATININE RESULT 0.92 mg/dL (0.52-1.25); LIPASE 45.5 U/L (23-300); TOTAL PROTEIN 7.8 g/dL (6.3-8.2)
[2016-04-05 04:25] LABS: CHLORIDE 96 mmol/L (98-107); SODIUM 137.3 mmol/L (137-145)
[2016-04-05 04:28] LABS: POTASSIUM 5.4 mmol/L (3.6-5.0)
[2016-04-05 04:47] LABS: ANION GAP 32 (5-19); CARBON DIOXIDE 9 mmol/L (22-30); GLUCOSE 649 mg/dL (75-110)
[2016-04-05 04:54] LABS: ARTERIAL BLOOD BASE EXCESS -22.4 mmol/L; ARTERIAL BLOOD O2 SATURATION 96.8 % (94-98)
[2016-04-05 05:12] LABS: APPEARANCE,URINE CLEAR; BILIRUBIN,URINE NEGATIVE (NEGATIVE); GLUCOSE, URINE >=500 mg/dL (NEGATIVE); KETONES,URINE 80 mg/dL (NEGATIVE); LEUKOCYTE ESTERASE,URINE NEGATIVE (NEGATIVE); NITRITE,URINE NEGATIVE (NEGATIVE); PROTEIN,URINE NEGATIVE (NEGATIVE); URINE SPECIFIC GRAVITY 1.024; UROBILINOGEN,URINE NEGATIVE mg/dL (<2.0)
[2016-04-05] MEDS ORDERED: NORMAL SALINE 1000 ML 1,000 ML IV PRN ×2 (05:26→20:00)
[2016-04-05] MEDS ORDERED: DEXTROSE 40% GEL 15 GM TUBE PO PRN ×2 (05:28)
[2016-04-05] MEDS ORDERED: ONDANSETRON HCL INJ/PF 4 MG/2 ML SDV IV PRN (05:28)
[2016-04-05] MEDS ORDERED: GLUCAGON,HUMAN RECOMB 1 MG INJ IM PRN (05:28)
[2016-04-05] MEDS ORDERED: DEXTROSE 50%-WATER 25 GM/50 ML DISP.SYRIN IV PRN (05:28)
[2016-04-05] MEDS ORDERED: ACETAMINOPHEN 325 MG TABLET PO PRN (05:28)
[2016-04-05] MEDS ORDERED: NORMAL SALINE 1000 ML 1,000 ML IV SCH (05:30)
--- NOTE | 2016-04-05 05:35 | ER Document Report ---
Doctor's Note Notes: 04/05/16 05:56 Patient is a 21-year-old male who has a history of diabetes and DKA. Patient comes in with a 2 x 2 reviewed blood sugar, tachycardia. Patient was initially vomiting but that has resolved. Patient has a slight headache but denies any abdominal pain. Patient has been given fluids and started on an insulin drip. He will be admitted to the IMCU. I have seen this patient in consult with the MLP and agree with the course of action. Stable at time of admission.
--- NOTE | 2016-04-05 06:52 | PDOC H&P ---
History of Present Illness Admission Date/PCP: 04/05/16 05:28 Patient complains of: Abdominal pain and nausea History of Present Illness: ACE POSADA is a 21 year old male with history of diabetes depression and anxiety with 17 ED presentations in the last 6 months for hyperglycemia. Presents with blood sugars in the 600 range anion gap of 32. Patient admittedly noncompliant with insulin and antidepressants and lifestyle. In the emergency room he is received IV fluids and regular insulin by IVs referred to the hospitalist for admission. Past Medical History Cardiac Medical History: Reports: Hyperlipidema Endocrine Medical History: Reports: Diabetes Mellitus Type 1 Psychiatric Medical History: Reports: Depression, General Anxiety Disorder Past Surgical History Past Surgical History: Reports: Appendectomy Social History Information Source: Patient, Parent Lives with: Family Smoking Status: Never Smoker Frequency of Alcohol Use: Rare Hx Recreational Drug Use: No Drugs: None Hx Prescription Drug Abuse: No - Advance Directive Resuscitation Status: Full Code Family History Family History: DM, Hypertension Parental Family History Reviewed: Yes Children Family History Reviewed: Yes Sibling(s) Family History Reviewed.: Yes Medication/Allergy Home Medications: Citalopram Hydrobromide [Celexa 40 mg Tablet] 40 mg PO DAILY 03/22/16 Insulin Aspart [Novolog Insulin (Aspart) 100 unit/mL] See Protocol SQ ASDIR PRN 03/22/16 Insulin Glargine,Hum.rec.anlog [Lantus Solostar] 40 units SQ Q12 #1 ml 03/23/16 Allergies/Adverse Reactions: No Known Allergies Allergy (Verified 03/22/16 07:30) Review of Systems Constitutional: ABSENT: chills, fever(s), headache(s), weight gain, weight loss Eyes: ABSENT: visual disturbances Ears: ABSENT: hearing changes Cardiovascular: ABSENT: chest pain, dyspnea on exertion, edema, orthropnea, palpitations Respiratory: ABSENT: cough, hemoptysis Gastrointestinal: ABSENT: abdominal pain, constipation, diarrhea, hematemesis, hematochezia, nausea, vomiting Genitourinary: ABSENT: dysuria, hematuria Musculoskeletal: ABSENT: joint swelling Integumentary: ABSENT: rash, wounds Neurological: ABSENT: abnormal gait, abnormal speech, confusion, dizziness, focal weakness, syncope Psychiatric: ABSENT: anxiety, depression, homidical ideation, suicidal ideation Endocrine: ABSENT: cold intolerance, heat intolerance, polydipsia, polyuria Hematologic/Lymphatic: ABSENT: easy bleeding, easy bruising Physical Exam Vital Signs: Temp Pulse Resp BP Pulse Ox 97.6 F 133 H 13 157/58 H 100 04/05/16 02:55 04/05/16 02:55 04/05/16 05:03 04/05/16 05:03 04/05/16 05:03 General appearance: PRESENT: cooperative, disheveled, mild distress Head exam: PRESENT: atraumatic, normocephalic Eye exam: PRESENT: conjunctiva pink, EOMI, PERRLA. ABSENT: scleral icterus Ear exam: PRESENT: normal external ear exam Mouth exam: PRESENT: dry mucosa, tongue midline Neck exam: ABSENT: carotid bruit, JVD, lymphadenopathy, thyromegaly Respiratory exam: PRESENT: clear to auscultation saul, tachypnea. ABSENT: rales , rhonchi, wheezes Cardiovascular exam: PRESENT: RRR. ABSENT: diastolic murmur, rubs, systolic murmur Pulses: PRESENT: normal dorsalis pedis pul Vascular exam: PRESENT: normal capillary refill GI/Abdominal exam: PRESENT: normal bowel sounds, soft. ABSENT: distended, guarding, mass, organolmegaly, rebound, tenderness Rectal exam: PRESENT: deferred Extremities exam: PRESENT: full ROM. ABSENT: calf tenderness, clubbing, pedal edema Neurological exam: PRESENT: alert, awake, oriented to person, oriented to place , oriented to time, oriented to situation, CN II-XII grossly intact. ABSENT: motor sensory deficit Psychiatric exam: PRESENT: appropriate affect, normal mood. ABSENT: homicidal ideation, suicidal ideation Skin exam: PRESENT: dry, intact, warm. ABSENT: cyanosis, rash Assessment & Plan - Diagnosis (1) DKA (diabetic ketoacidoses) Qualifiers: Diabetes mellitus type: type 1 Diabetes mellitus complication detail: without coma Qualified Code(s): E10.10 - Type 1 diabetes mellitus with ketoacidosis without coma Is this a current diagnosis for this admission?: YesPlan: Diabetic ketoacidosis patient has had some degree of polyuria polydipsia with nausea and uncontrolled hyperglycemia with supporting labs. Patient will receive IV fluids IV insulin serial chemistries every 6 hours for evaluation for electrolyte repletion. Continued evaluation for underlying cause if not found Patient will require diabetic education and consideration of mental health evaluation. (2) Anxiety and depression Is this a current diagnosis for this admission?: YesPlan: Continue outpatient regiment and mental health consultation given 17 presentations to the ED in 6 months with several in critical condition - Time Time Spent: 50 to 70 Minutes
--- NOTE | 2016-04-05 08:07 | EKG REPORT ---
SEVERITY:- OTHERWISE NORMAL ECG - SINUS TACHYCARDIA : Confirmed by: Eduard Milligan MD 05-Apr-2016 08:06:25
[2016-04-05 08:34] LABS: BLOOD UREA NITROGEN 12 mg/dL (7-20); CALCIUM 9.5 mg/dL (8.4-10.2); CHLORIDE 110 mmol/L (98-107); CREATININE RESULT 0.91 mg/dL (0.52-1.25); GLUCOSE 295 mg/dL (75-110); POTASSIUM 4.8 mmol/L (3.6-5.0)
[2016-04-05 08:48] LABS: SODIUM 145.4 mmol/L (137-145)
[2016-04-05 08:54] LABS: ANION GAP 27 (5-19)
[2016-04-05 08:55] LABS: CARBON DIOXIDE 8 mmol/L (22-30)
[2016-04-05] MEDS: DOCUSATE SODIUM 100 MG CAPSULE PO SCH ×2 (09:08→17:22)
[2016-04-05] MEDS: HEPARIN SOD (PORCINE) 5,000 UNIT/ML 1 ML SYRINGE SUBCUT SCH ×3 (09:08→23:10)
[2016-04-05] MEDS ORDERED: POTASSI CL 20 MEQ/D5-1/2NS 1L 1,000 ML IV PRN (09:34)
[2016-04-05] MEDS ORDERED: DEXTROSE 5%-WATER 1000 ML 1,000 ML with SODIUM BICARBONATE 150 MEQ IV PRN ×2 (09:35)
--- NOTE | 2016-04-05 10:09 | PSYCHOLOGICAL NOTE ---
Psych Note - Psych Note Psych Note: Presented to [facility] ED with a history of diabetes and DKA. Patient is non- compliant with medication. Patient confirms that he is noncompliant with his medications. He states that he does not have insurance. He states that he lives with his family that includes his mother, aunt, uncle, 3 cousins, and the 2 children of his oldest cousin. He is currently not employed because he "got tired of working there" so he is looking for a new job and a new start. He states that he has no thoughts of moving from the area because his family his here. He graduated for High School with A-B average. He states that he did well in school. When discussing emotions, the patient states that he " has a hard time with relationships." He continued to disclose that he just doesn't understand it sometimes. He continued to disclose that he has a difficult time understanding what someone is feeling when they talk. The patient states he is able to identify a persons emotions when looking at them, but gets confused when they talk because it doesn't match. The patient states that he also has difficulty sleepiong at times. Patient is semi-alert and orientated to person place time and circumstance. Mood is dysphoric with flat affect. Patient denies suicidal homicidal ideation. Patient denies auditory and visual hallucinations; no delusions are noted. Thought process is logical, organized and linear. Conversational speech was with low rate and tone. No eye contact was maintained. Intellectual abilities appear to be low average range. Attention and concentration are poor. Insight, judgment, impulse control are poor. Diagnosis is deferred: At this time there is no indication of mental health diagnosis however is recommended for a neuropsychological evaluation to be completed. Impression\\plan: Patient is psychiatrically clear. Is recommended this patient sees a neuropsychological evaluation for R/O of communication or autism spectrum disorder. Patient denies suicidal homicidal ideation. Patient disclosed he is noncompliant with medication however gives reasoning as insurance and money. Attending physician is in agreement with recommendations and disposition.
[2016-04-05] MEDS ORDERED: NORMAL SALINE 100 ML with INSULIN REGULAR, HUMAN 100 UNIT IV PRN ×2 (11:49)
[2016-04-05] MEDS ORDERED: DEXTROSE 5%-1/2 NORMAL SALINE 1,000 ML IV PRN (11:50)
[2016-04-05 13:10] LABS: ANION GAP 14 (5-19); BLOOD UREA NITROGEN 12 mg/dL (7-20); CALCIUM 9.2 mg/dL (8.4-10.2); CARBON DIOXIDE 16 mmol/L (22-30); CHLORIDE 111 mmol/L (98-107); GLUCOSE 69 mg/dL (75-110); POTASSIUM 3.9 mmol/L (3.6-5.0); SODIUM 141.3 mmol/L (137-145)
[2016-04-05] MEDS ORDERED: INFLUENZA ADLT QUAD (36MOS+) 2016-17 VAC 0.5 ML SYR IM PRN (13:10)
[2016-04-05 16:18] LABS: VENOUS BLOOD BASE EXCESS -8.5 mmol/L; VENOUS BLOOD HCO3 17.4 mmol/L (20-32); VENOUS BLOOD PCO2 37.3 mmHg (35-63); VENOUS BLOOD PH 7.29 (7.30-7.42)
[2016-04-05 16:30] LABS: ANION GAP 10 (5-19); BLOOD UREA NITROGEN 11 mg/dL (7-20); CALCIUM 8.8 mg/dL (8.4-10.2); CARBON DIOXIDE 20 mmol/L (22-30); CHLORIDE 109 mmol/L (98-107); GLUCOSE 78 mg/dL (75-110); POTASSIUM 3.8 mmol/L (3.6-5.0); SODIUM 139.2 mmol/L (137-145)
[2016-04-05] MEDS ORDERED: INSULIN GLARGINE,HUM.REC.ANLOG 300 UNIT/3 ML INSULN.PEN SUBCUT ONE (16:42)
[2016-04-05] MEDS: INSULIN LISPRO 100 UNIT/ML 3 ML VIAL SUBCUT PRN (22:01)
[2016-04-06 06:09] LABS: ABSOLUTE EOSINOPHILS # (AUTO) 0.1 10^3/uL (0.0-0.6); ABSOLUTE LYMPHOCYTES (AUTO) 4.6 10^3/uL (0.5-4.7); ABSOLUTE MONOCYTES (AUTO) 0.4 10^3/uL (0.1-1.4); ABSOLUTE NEUT (AUTO) 4.5 10^3/uL (1.7-8.2); BASOPHILS % (AUTO) 0.3 % (0-2); EOSINOPHILS % (AUTO) 0.6 % (0-6); HEMATOCRIT 35.1 % (37.9-51.0); HGB HCT DIFFERENCE -0.6; LYMPHOCYTES % (AUTO) 47.9 % (13-45); MEAN CORPUSCULAR HEMOGLOBIN 30.6 pg (27.0-33.4); MEAN CORPUSCULAR HGB CONC 32.9 g/dL (32.0-36.0); MONOCYTES % (AUTO) 4.4 % (3-13); RED BLOOD COUNT 3.76 10^6/uL (4.35-5.55); RED CELL DISTRIBUTION WIDTH 13.5 % (11.5-14.0); SEGMENTED NEUTROPHILS % (AUTO) 46.8 % (42-78); WHITE BLOOD COUNT 9.6 10^3/uL (4.0-10.5)
[2016-04-06 06:24] LABS: ANION GAP 13 (5-19); BLOOD UREA NITROGEN 11 mg/dL (7-20); CALCIUM 9.1 mg/dL (8.4-10.2); CARBON DIOXIDE 19 mmol/L (22-30); CHLORIDE 105 mmol/L (98-107); CREATININE RESULT 0.56 mg/dL (0.52-1.25); GLUCOSE 224 mg/dL (75-110); POTASSIUM 3.7 mmol/L (3.6-5.0); SODIUM 137.4 mmol/L (137-145)
[2016-04-06] MEDS: HEPARIN SOD (PORCINE) 5,000 UNIT/ML 1 ML SYRINGE SUBCUT SCH ×2 (06:43→14:58)
[2016-04-06 06:50] LABS: HEMOGLOBIN 11.5 g/dL (13.5-17.0)
[2016-04-06 06:51] LABS: MEAN CORPUSCULAR VOLUME 93 fl (80-97)
[2016-04-06] MEDS: INSULIN LISPRO 100 UNIT/ML 3 ML VIAL SUBCUT PRN ×2 (08:42→12:01)
[2016-04-06] MEDS: DOCUSATE SODIUM 100 MG CAPSULE PO SCH ×2 (10:31→18:16)
[2016-04-06] MEDS: INSULIN GLARGINE,HUM.REC.ANLOG 300 UNIT/3 ML INSULN.PEN SUBCUT SCH (10:31)
[2016-04-06] MEDS ORDERED: INSULIN LISPRO 100 UNIT/ML 3 ML VIAL SUBCUT SCH (14:00)
--- NOTE | 2016-04-06 16:02 | PDOC PROGRESS REPORT ---
Subjective Progress Note for:: 04/06/16 Subjective:: Patient is feeling better Eating well and tolerating diet Blood sugars still remain in the 300 range The anion gap is closed Physical Exam Vital Signs: Temp Pulse Resp BP Pulse Ox 97.4 F 83 16 125/55 L 100 04/06/16 11:43 04/06/16 11:43 04/06/16 11:43 04/06/16 11:43 04/06/16 11:43 Intake & Output 04/05/16 04/06/16 04/07/16 00:59 00:59 00:59 Intake Total 3443 2224 Output Total 1750 Balance 1693 2224 Weight 63 kg 66.8 kg General appearance: PRESENT: no acute distress, well-developed, well-nourished Head exam: PRESENT: atraumatic, normocephalic Eye exam: PRESENT: conjunctiva pink, EOMI, PERRLA. ABSENT: scleral icterus Ear exam: PRESENT: normal external ear exam Mouth exam: PRESENT: moist, tongue midline Neck exam: ABSENT: carotid bruit, JVD, lymphadenopathy, thyromegaly Respiratory exam: PRESENT: clear to auscultation saul. ABSENT: rales, rhonchi, wheezes Cardiovascular exam: PRESENT: RRR. ABSENT: diastolic murmur, rubs, systolic murmur Pulses: PRESENT: normal dorsalis pedis pul Vascular exam: PRESENT: normal capillary refill GI/Abdominal exam: PRESENT: normal bowel sounds, soft. ABSENT: distended, guarding, mass, organolmegaly, rebound, tenderness Rectal exam: PRESENT: deferred Extremities exam: PRESENT: full ROM. ABSENT: calf tenderness, clubbing, pedal edema Neurological exam: PRESENT: alert, awake, oriented to person, oriented to place , oriented to time, oriented to situation, CN II-XII grossly intact. ABSENT: motor sensory deficit Psychiatric exam: PRESENT: appropriate affect, normal mood. ABSENT: homicidal ideation, suicidal ideation Skin exam: PRESENT: dry, intact, warm. ABSENT: cyanosis, rash Results Laboratory Results: 04/06/16 05:37 04/06/16 05:37 04/05/16 04/05/16 04/06/16 15:59 15:59 05:37 WBC 9.6 RBC 3.76 L Hgb 11.5 L D Hct 35.1 L MCV 93 D MCH 30.6 MCHC 32.9 RDW 13.5 Plt Count 245 Seg Neutrophils % 46.8 Lymphocytes % 47.9 H Monocytes % 4.4 Eosinophils % 0.6 Basophils % 0.3 Absolute Neutrophils 4.5 Absolute Lymphocytes 4.6 Absolute Monocytes 0.4 Absolute Eosinophils 0.1 Absolute Basophils 0.0 VBG pH 7.29 L VBG pCO2 37.3 VBG HCO3 17.4 L VBG Base Excess -8.5 Sodium 139.2 Potassium 3.8 Chloride 109 H Carbon Dioxide 20 L Anion Gap 10 BUN 11 Creatinine 0.60 Est GFR ( Amer) > 60 Est GFR (Non-Af Amer) > 60 Glucose 78 Calcium 8.8 04/06/16 05:37 WBC RBC Hgb Hct MCV MCH MCHC RDW Plt Count Seg Neutrophils % Lymphocytes % Monocytes % Eosinophils % Basophils % Absolute Neutrophils Absolute Lymphocytes Absolute Monocytes Absolute Eosinophils Absolute Basophils VBG pH VBG pCO2 VBG HCO3 VBG Base Excess Sodium 137.4 Potassium 3.7 Chloride 105 Carbon Dioxide 19 L Anion Gap 13 BUN 11 Creatinine 0.56 Est GFR ( Amer) > 60 Est GFR (Non-Af Amer) > 60 Glucose 224 H Calcium 9.1 04/05/16 04/06/16 04/06/16 21:33 05:37 07:36 Glucose 224 H POC Glucose 339 H 160 H 04/06/16 11:10 Glucose POC Glucose 312 H Assessment & Plan - Diagnosis (1) Anxiety and depression Is this a current diagnosis for this admission?: Yes (2) DKA (diabetic ketoacidoses) Qualifiers: Diabetes mellitus type: type 1 Diabetes mellitus complication detail: without coma Qualified Code(s): E10.10 - Type 1 diabetes mellitus with ketoacidosis without coma Is this a current diagnosis for this admission?: Yes (3) DVT prophylaxis Is this a current diagnosis for this admission?: Yes - Time Time Spent with patient: We will keep the patient overnight as his blood sugars are still quite elevated We will initiate small doses of lispro prior to meals and continue the sliding scale Discharge patient in a.m. if more stable Time Spent with patient: 25-34 minutes
[2016-04-06] MEDS: INSULIN LISPRO 100 UNIT/ML 3 ML VIAL SUBCUT SCH (16:54)
[2016-04-06 23:56] LABS: ANION GAP 9 (5-19); BLOOD UREA NITROGEN 15 mg/dL (7-20); CARBON DIOXIDE 28 mmol/L (22-30); CHLORIDE 103 mmol/L (98-107); CREATININE RESULT 0.51 mg/dL (0.52-1.25); GLUCOSE 193 mg/dL (75-110); POTASSIUM 3.4 mmol/L (3.6-5.0); SODIUM 140.4 mmol/L (137-145)
[2016-04-07] MEDS: INSULIN GLARGINE,HUM.REC.ANLOG 300 UNIT/3 ML INSULN.PEN SUBCUT SCH ×3 (00:55→11:18)
[2016-04-07] MEDS: HEPARIN SOD (PORCINE) 5,000 UNIT/ML 1 ML SYRINGE SUBCUT SCH ×4 (02:46→22:53)
[2016-04-07] MEDS: DEXTROSE 50%-WATER 25 GM/50 ML DISP.SYRIN IV PRN (06:41)
[2016-04-07] MEDS ORDERED: INSULIN LISPRO 100 UNIT/ML 3 ML VIAL SUBCUT PRN (09:52)
[2016-04-07] MEDS ORDERED: INSULIN LISPRO 100 UNIT/ML 3 ML VIAL SUBCUT SCH (11:00)
[2016-04-07] MEDS: DOCUSATE SODIUM 100 MG CAPSULE PO SCH ×2 (11:19→18:12)
--- NOTE | 2016-04-07 13:19 | PDOC PROGRESS REPORT ---
Subjective Progress Note for:: 04/07/16 Subjective:: Patient was kept overnite because of labile blood sugars hyperglycemia last evening, hypoglycemia this am no nausea or vomiting, no fever tolerating diet well Physical Exam Vital Signs: Temp Pulse Resp BP Pulse Ox 97.5 F 65 16 124/69 100 04/07/16 11:49 04/07/16 11:49 04/07/16 11:49 04/07/16 11:49 04/07/16 11:49 Intake & Output 04/06/16 04/07/16 04/08/16 00:59 00:59 00:59 Intake Total 3443 3620 20 Output Total 1750 Balance 1693 3620 20 Weight 63 kg 66.8 kg 69.4 kg General appearance: PRESENT: no acute distress, well-developed, well-nourished Head exam: PRESENT: atraumatic, normocephalic Eye exam: PRESENT: conjunctiva pink, EOMI, PERRLA. ABSENT: scleral icterus Ear exam: PRESENT: normal external ear exam Mouth exam: PRESENT: moist, tongue midline Neck exam: ABSENT: carotid bruit, JVD, lymphadenopathy, thyromegaly Respiratory exam: PRESENT: clear to auscultation saul. ABSENT: rales, rhonchi, wheezes Cardiovascular exam: PRESENT: RRR. ABSENT: diastolic murmur, rubs, systolic murmur Pulses: PRESENT: normal dorsalis pedis pul Vascular exam: PRESENT: normal capillary refill GI/Abdominal exam: PRESENT: normal bowel sounds, soft. ABSENT: distended, guarding, mass, organolmegaly, rebound, tenderness Rectal exam: PRESENT: deferred Extremities exam: PRESENT: full ROM. ABSENT: calf tenderness, clubbing, pedal edema Neurological exam: PRESENT: alert, awake, oriented to person, oriented to place , oriented to time, oriented to situation, CN II-XII grossly intact. ABSENT: motor sensory deficit Psychiatric exam: PRESENT: appropriate affect, normal mood. ABSENT: homicidal ideation, suicidal ideation Skin exam: PRESENT: dry, intact, warm. ABSENT: cyanosis, rash Results Laboratory Results: 04/06/16 05:37 04/06/16 23:26 04/06/16 23:26 Sodium 140.4 Potassium 3.4 L Chloride 103 Carbon Dioxide 28 Anion Gap 9 BUN 15 Creatinine 0.51 L Est GFR ( Amer) > 60 Est GFR (Non-Af Amer) > 60 Glucose 193 H Calcium 9.0 04/06/16 04/06/16 04/06/16 07:36 11:10 16:49 Glucose POC Glucose 160 H 312 H 118 H 04/06/16 04/06/16 04/07/16 21:41 23:26 00:31 Glucose 193 H POC Glucose 62 L 231 H 04/07/16 04/07/16 04/07/16 06:27 06:47 11:10 Glucose POC Glucose 53 L 122 H 207 H Assessment & Plan - Diagnosis (1) Anxiety and depression Is this a current diagnosis for this admission?: Yes (2) DKA (diabetic ketoacidoses) Qualifiers: Diabetes mellitus type: type 1 Diabetes mellitus complication detail: without coma Qualified Code(s): E10.10 - Type 1 diabetes mellitus with ketoacidosis without coma Is this a current diagnosis for this admission?: Yes (3) DVT prophylaxis Is this a current diagnosis for this admission?: Yes (4) Labile blood glucose Is this a current diagnosis for this admission?: YesPlan: reevaluate lantus/ lispron decreased lantus to 25 units SC q12 lispro before meals continue to monitor for 24 hours - Time Time Spent with patient: 25-34 minutes
[2016-04-07] MEDS: INSULIN LISPRO 100 UNIT/ML 3 ML VIAL SUBCUT SCH (16:48)
[2016-04-08] MEDS: DEXTROSE 50%-WATER 25 GM/50 ML DISP.SYRIN IV PRN (06:43)
[2016-04-08] MEDS: HEPARIN SOD (PORCINE) 5,000 UNIT/ML 1 ML SYRINGE SUBCUT SCH ×3 (06:44→21:31)
[2016-04-08] MEDS: DOCUSATE SODIUM 100 MG CAPSULE PO SCH ×2 (10:41→17:27)
[2016-04-08] MEDS: INSULIN LISPRO 100 UNIT/ML 3 ML VIAL SUBCUT SCH ×2 (11:39→17:26)
--- NOTE | 2016-04-08 13:45 | PDOC PROGRESS REPORT ---
Subjective Progress Note for:: 04/08/16 Subjective:: blood sugars are still labile low in am high in the afternoons otherwise feels well patient was kept an other days to adjust insulin dose Physical Exam Vital Signs: Temp Pulse Resp BP Pulse Ox 97.5 F 76 16 127/70 H 100 04/08/16 11:32 04/08/16 11:32 04/08/16 11:32 04/08/16 11:32 04/08/16 11:32 Intake & Output 04/07/16 04/08/16 04/09/16 00:59 00:59 00:59 Intake Total 3620 2703 904 Balance 3620 2703 904 Weight 66.8 kg 69.4 kg 70 kg General appearance: PRESENT: no acute distress, well-developed, well-nourished Head exam: PRESENT: atraumatic, normocephalic Eye exam: PRESENT: conjunctiva pink, EOMI, PERRLA. ABSENT: scleral icterus Ear exam: PRESENT: normal external ear exam Mouth exam: PRESENT: moist, tongue midline Neck exam: ABSENT: carotid bruit, JVD, lymphadenopathy, thyromegaly Respiratory exam: PRESENT: clear to auscultation saul. ABSENT: rales, rhonchi, wheezes Cardiovascular exam: PRESENT: RRR. ABSENT: diastolic murmur, rubs, systolic murmur Pulses: PRESENT: normal dorsalis pedis pul Vascular exam: PRESENT: normal capillary refill GI/Abdominal exam: PRESENT: normal bowel sounds, soft. ABSENT: distended, guarding, mass, organolmegaly, rebound, tenderness Rectal exam: PRESENT: deferred Extremities exam: PRESENT: full ROM. ABSENT: calf tenderness, clubbing, pedal edema Neurological exam: PRESENT: alert, awake, oriented to person, oriented to place , oriented to time, oriented to situation, CN II-XII grossly intact. ABSENT: motor sensory deficit Psychiatric exam: PRESENT: appropriate affect, normal mood. ABSENT: homicidal ideation, suicidal ideation Skin exam: PRESENT: dry, intact, warm. ABSENT: cyanosis, rash Results Laboratory Results: 04/06/16 05:37 04/06/16 23:26 Assessment & Plan - Diagnosis (1) Anxiety and depression Is this a current diagnosis for this admission?: Yes (2) DKA (diabetic ketoacidoses) Qualifiers: Diabetes mellitus type: type 1 Diabetes mellitus complication detail: without coma Qualified Code(s): E10.10 - Type 1 diabetes mellitus with ketoacidosis without coma Is this a current diagnosis for this admission?: Yes (3) DVT prophylaxis Is this a current diagnosis for this admission?: Yes (4) Labile blood glucose Is this a current diagnosis for this admission?: Yes - Time Time Spent with patient: 25-34 minutes
[2016-04-08] MEDS: INSULIN GLARGINE,HUM.REC.ANLOG 300 UNIT/3 ML INSULN.PEN SUBCUT SCH (21:34)
[2016-04-09] MEDS: HEPARIN SOD (PORCINE) 5,000 UNIT/ML 1 ML SYRINGE SUBCUT SCH ×2 (06:45→14:50)
[2016-04-09] MEDS: INSULIN GLARGINE,HUM.REC.ANLOG 300 UNIT/3 ML INSULN.PEN SUBCUT SCH (09:13)
[2016-04-09] MEDS: DOCUSATE SODIUM 100 MG CAPSULE PO SCH ×2 (09:16→17:18)
[2016-04-09] MEDS: INSULIN LISPRO 100 UNIT/ML 3 ML VIAL SUBCUT SCH ×2 (12:06→17:13)
--- NOTE | 2016-04-09 13:50 | PDOC DISCHARGE SUMMARY ---
General - Admit/Disc Date/PCP Admission Date/Primary Care Provider: 04/05/16 05:28 Discharge Date: 04/09/16 - Discharge Diagnosis (1) Diabetic ketoacidosis Is this a current diagnosis for this admission?: YesSummary: Likely due to medication noncompliance. Improved with usual regimen. Home on current inpatient regimen. (2) Anxiety and depression Is this a current diagnosis for this admission?: Yes - Additional Information Resuscitation Status: Full Code Discharge Diet: Diabetic Discharge Activity: Activity As Tolerated Home Medications: Citalopram Hydrobromide [Celexa 40 mg Tablet] 40 mg PO DAILY #30 04/06/16 Acetaminophen [Tylenol 325 mg Tablet] 650 mg PO Q4HP PRN tablet 04/09/16 Flu Vacc [id number] [id number] Up/Pf [Fluzone Adlt Quad [id number] Vac 0.5 ml Syr] 0.5 ml IM .AT DISCHARGE PRN disp.syrin 04/09/16 Insulin Glargine,Hum.rec.anlog [Lantus Insulin 100 Unit/mL] 20 unit SUBCUT Q12 # 1 vial 04/09/16 Insulin Lispro [Humalog Insulin (Lispro) 100 unit/mL] 0 - 12 unit SUBCUT ACHSP PRN unit 04/09/16 History of Present Illness Patient complains of: my sugars are high History of Present Illness: ACE POSADA is a 21 year old male with history of diabetes depression and anxiety with 17 ED presentations in the last 6 months for hyperglycemia. Presents with blood sugars in the 600 range anion gap of 32. Patient admittedly noncompliant with insulin and antidepressants and lifestyle. In the emergency room he is received IV fluids and regular insulin by IVs referred to the hospitalist for admission. Hospital Course Hospital Course: ACE POSADA is a 21 year old male with history of diabetes depression and anxiety with 17 ED presentations in the last 6 months for hyperglycemia. Presents with blood sugars in the 600 range anion gap of 32. Patient admittedly noncompliant with insulin and antidepressants and lifestyle. In the emergency room he is received IV fluids and regular insulin by IVs referred to the hospitalist for admission. blood sugars are still labile but his anion gap closed. low in am high in the afternoons otherwise feels well tolerating diet. patient was kept an other days to adjust insulin dose. Blood sugars are more stable the mean around 110-120. He is stable for discharge home. Physical Exam Vital Signs: Temp Pulse Resp BP Pulse Ox 97.8 F 83 16 114/73 100 04/09/16 11:22 04/09/16 11:22 04/09/16 11:22 04/09/16 11:22 04/09/16 11:22 Intake & Output 04/08/16 04/09/16 04/10/16 06:59 06:59 06:59 Intake Total 3128 2289 945 Balance 3128 2289 945 Weight 70 kg 70 kg General appearance: PRESENT: no acute distress Eye exam: ABSENT: conjunctival injection Mouth exam: PRESENT: moist Neck exam: PRESENT: full ROM Respiratory exam: PRESENT: clear to auscultation saul. ABSENT: accessory muscle use Cardiovascular exam: PRESENT: RRR Pulses: PRESENT: normal radial pulses GI/Abdominal exam: PRESENT: soft. ABSENT: tenderness Neurological exam: PRESENT: alert, awake, oriented to person, oriented to place , oriented to time Psychiatric exam: PRESENT: appropriate affect, normal mood Skin exam: PRESENT: dry, warm Results Laboratory Results: 04/06/16 05:37 04/06/16 23:26 Qualifiers PATEINT BEING DISCHARGED WITH ANY OF THE FOLLOWING DIAGNOSIS?: No Plan Discharge Plan: Discharge home on Lantus 20 units twice a day with sliding scale for meal coverage. He is to continue checking his blood sugars every before meals and at bedtime and report those findings to his clinic physician for dose adjustment in 1-2 weeks. Time Spent: Less than 30 Minutes
[2016-04-09 14:25] VITALS: BP 104/36
[2016-04-10] MEDS ORDERED: INSULIN LISPRO 100 UNIT/ML 3 ML VIAL SUBCUT SCH (08:00)
== END 2016-04-09 18:45 | disposition home or self-care (01) | DRG 639 ==
LOC: ER 02:48 → EH 05:28 → UNDOADMIN 05:54 → EH 05:54 → 3S 09:48
PROVIDERS: ADMIT Internal Medicine; ATTEND Internal Medicine
PROC: 3E0234Z Introduction of Serum, Toxoid and Vaccine into Muscle, Percutaneous Approach (ICD-10-PCS; principal; 2016-04-09)
DX: E10.10 Type 1 diabetes mellitus with ketoacidosis without coma (principal); E78.5 Hyperlipidemia, unspecified; F32.9 Major depressive disorder, single episode, unspecified; F41.1 Generalized anxiety disorder; Z79.899 Other long term (current) drug therapy; Z90.49 Acquired absence of other specified parts of digestive tract; Z82.49 Family history of ischemic heart disease and other diseases of the circulatory system; Z83.3 Family history of diabetes mellitus; Z23 Encounter for immunization; Z91.19 Patient's noncompliance with other medical treatment and regimen; Z59.9 Problem related to housing and economic circumstances, unspecified
CPT/HCPCS: 36415; 80048; 80053; 81001; 82803; 82962; 83605; 83690; 83930; 84100; 85025; 90686; 93005; 93010; 96360; 99291; J1644; J1815; J3490; J7030

== ENCOUNTER 2016-04-15 07:18 | Inpatient (IN) | payer OTHER ==
[2016-04-15] MEDS: NORMAL SALINE 1000 ML 1,000 ML IV PRN ×2 (07:56→11:05)
[2016-04-15] MEDS ORDERED: ONDANSETRON HCL INJ/PF 4 MG/2 ML SDV IV ONE (08:16)
[2016-04-15 08:20] LABS: ABSOLUTE BASOPHILS # (AUTO) 0.1 10^3/uL (0.0-0.2); ABSOLUTE LYMPHOCYTES (AUTO) 4.3 10^3/uL (0.5-4.7); ABSOLUTE MONOCYTES (AUTO) 0.8 10^3/uL (0.1-1.4); ABSOLUTE NEUT (AUTO) 8.9 10^3/uL (1.7-8.2); BASOPHILS % (AUTO) 0.6 % (0-2); EOSINOPHILS % (AUTO) 0.1 % (0-6); HEMATOCRIT 47.2 % (37.9-51.0); HGB HCT DIFFERENCE -2.2; LYMPHOCYTES % (AUTO) 30.3 % (13-45); MEAN CORPUSCULAR HEMOGLOBIN 31.2 pg (27.0-33.4); MEAN CORPUSCULAR HGB CONC 31.8 g/dL (32.0-36.0); MONOCYTES % (AUTO) 5.9 % (3-13); RED BLOOD COUNT 4.82 10^6/uL (4.35-5.55); RED CELL DISTRIBUTION WIDTH 13.8 % (11.5-14.0); SEGMENTED NEUTROPHILS % (AUTO) 63.1 % (42-78); WHITE BLOOD COUNT 14.1 10^3/uL (4.0-10.5)
[2016-04-15 08:20] LABS: VENOUS BLOOD BASE EXCESS -18.2 mmol/L; VENOUS BLOOD HCO3 9.4 mmol/L (20-32); VENOUS BLOOD PCO2 28.7 mmHg (35-63)
[2016-04-15 08:28] LABS: MEAN CORPUSCULAR VOLUME 98 fl (80-97)
[2016-04-15 08:46] LABS: ALANINE AMINOTRANSFERASE 42 U/L (21-72); ALBUMIN 4.7 g/dL (3.5-5.0); ALKALINE PHOSPHATASE 131 U/L (38-126); ASPARTATE AMINO TRANSFERASE 25 U/L (17-59); BILIRUBIN,TOTAL 0.7 mg/dL (0.2-1.3); BLOOD UREA NITROGEN 20 mg/dL (7-20); CALCIUM 11.1 mg/dL (8.4-10.2); CHLORIDE 89 mmol/L (98-107); CREATININE RESULT 0.99 mg/dL (0.52-1.25); LIPASE 47.8 U/L (23-300); MAGNESIUM 2.1 mg/dL (1.6-2.3); POTASSIUM 4.9 mmol/L (3.6-5.0); SODIUM 138.3 mmol/L (137-145); TOTAL PROTEIN 8.3 g/dL (6.3-8.2)
[2016-04-15 08:58] LABS: GLUCOSE 796 mg/dL (75-110)
[2016-04-15 08:59] LABS: ANION GAP 44 (5-19); CARBON DIOXIDE 5 mmol/L (22-30)
[2016-04-15 08:59] LABS: VENOUS BLOOD PH 7.14 (7.30-7.42)
[2016-04-15] MEDS ORDERED: NORMAL SALINE 1000 ML 1,000 ML IV ONE ×2 (08:59→10:21)
[2016-04-15] MEDS ORDERED: DEXTROSE 40% GEL 15 GM TUBE PO PRN ×3 (09:01→23:54)
[2016-04-15] MEDS ORDERED: GLUCAGON,HUMAN RECOMB 1 MG INJ IM PRN ×2 (09:01→23:54)
[2016-04-15] MEDS ORDERED: DEXTROSE 50%-WATER 25 GM/50 ML DISP.SYRIN IV PRN ×2 (09:01)
[2016-04-15] MEDS ORDERED: NORMAL SALINE 100 ML with INSULIN REGULAR, HUMAN 100 UNIT IV PRN ×4 (09:01→10:20)
--- NOTE | 2016-04-15 09:12 | ER Document Report ---
ED General - General Chief Complaint: High Blood Sugar Stated Complaint: POSSIBLE DEHYDRATION TRAVEL OUTSIDE OF THE [place] IN LAST 30 DAYS: No - HPI Patient complains to provider of: nausea vomiting dehydration and elevated blood sugars Notes: Patient with a history DKA. Patient recently admitted for DKA patient coming in with nausea vomiting tachycardia state he feels dehydrated does not use of DKA. Patient states he has been compliant with his insulin at home. States multiple episodes nausea vomiting. Patient denies any head pain chest pain abdominal pain. - Related Data Allergies/Adverse Reactions: No Known Allergies Allergy (Verified 04/15/16 07:28) Past Medical History - Social History Smoking Status: Unknown if Ever Smoked Chew tobacco use (# tins/day): No Frequency of alcohol use: None Drug Abuse: None Family History: DM, Hypertension Patient has suicidal ideation: No Patient has homicidal ideation: No - Past Medical History Cardiac Medical History: Reports: Hx Hypercholesterolemia Endocrine Medical History: Reports: Hx Diabetes Mellitus Type 1 Renal/ Medical History: Denies: Hx Peritoneal Dialysis Psychiatric Medical History: Reports: Hx Depression Past Surgical History: Reports: Hx Appendectomy - Immunizations Hx Diphtheria, Pertussis, Tetanus Vaccination: Yes Hx Pneumococcal Vaccination: 03/17/15 Review of Systems - Review of Systems Constitutional: No symptoms reported EENT: No symptoms reported Cardiovascular: No symptoms reported Respiratory: No symptoms reported Gastrointestinal: Abdominal pain, Nausea, Vomiting Genitourinary: No symptoms reported Male Genitourinary: No symptoms reported Musculoskeletal: No symptoms reported Skin: No symptoms reported Hematologic/Lymphatic: No symptoms reported Neurological/Psychological: No symptoms reported -: Yes All other systems reviewed and negative Physical Exam - Vital signs Vitals: Temp Pulse Resp BP Pulse Ox 97.1 F 146 H 20 136/80 H 97 04/15/16 07:28 04/15/16 07:28 04/15/16 07:28 04/15/16 07:28 04/15/16 07:28 Interpretation: Hypertensive, Tachycardic, Tachypneic - General General appearance: Appears well, Alert - HEENT Head: Normocephalic, Atraumatic Eyes: Normal Pupils: PERRL - Respiratory Respiratory status: No respiratory distress Chest status: Nontender Breath sounds: Normal Chest palpation: Normal - Cardiovascular Rhythm: Tachycardia Heart sounds: Normal auscultation Murmur: No - Abdominal Inspection: Normal Distension: No distension Bowel sounds: Normal Tenderness: Nontender Organomegaly: No organomegaly - Back Back: Normal, Nontender - Extremities General upper extremity: Normal inspection, Nontender, Normal color, Normal ROM , Normal temperature General lower extremity: Normal inspection, Nontender, Normal color, Normal ROM , Normal temperature, Normal weight bearing. No: Bernarda's sign - Neurological Neuro grossly intact: Yes Cognition: Normal Orientation: AAOx4 [place] Coma Scale Eye Opening: Spontaneous [place] Coma Scale Verbal: Oriented [place] Coma Scale Motor: Obeys Commands [place] Coma Scale Total: 15 Speech: Normal Motor strength normal: LUE, RUE, LLE, RLE Sensory: Normal - Psychological Associated symptoms: Normal affect, Normal mood - Skin Skin Temperature: Warm Skin Moisture: Dry Skin Color: Normal Course - Re-evaluation Re-evalutation: 04/15/16 14:36 Patient's lab work shows signs DKA. Patient started on insulin drip 4 units per hour. Patient also aggressively hydrated with IV fluids. Discuss case with hospitalist will admit patient to ICU. - Vital Signs Vital signs: Temp Pulse Resp BP Pulse Ox 97.1 F 103 H 14 121/54 L 100 04/15/16 07:28 04/15/16 14:00 04/15/16 12:01 04/15/16 12:01 04/15/16 12:01 - Laboratory Result Diagrams: 04/15/16 07:55 04/15/16 11:10 Laboratory results interpreted by me: 04/15/16 04/15/16 04/15/16 07:55 07:55 07:57 WBC 14.1 H MCV 98 H D MCHC 31.8 L Plt Count 478 H Absolute Neutrophils 8.9 H VBG pH VBG pCO2 VBG HCO3 Chloride 89 L Carbon Dioxide 5 L* Anion Gap 44 H Glucose 796 H* POC Glucose > 550 H* Calcium 11.1 H Alkaline Phosphatase 131 H Total Protein 8.3 H 04/15/16 08:10 WBC MCV MCHC Plt Count Absolute Neutrophils VBG pH 7.14 L* VBG pCO2 28.7 L VBG HCO3 9.4 L Chloride Carbon Dioxide Anion Gap Glucose POC Glucose Calcium Alkaline Phosphatase Total Protein Critical Care Note - Critical Care Note Total time excluding time spent on procedures (mins): 35 Comments: Multiple evaluations for patient with DKA unstable vital signs requiring and managing insulin drip and IV fluids. Discharge - Discharge Clinical Impression: Tachycardia Diabetic ketoacidosis Qualifiers: Diabetes mellitus type: type 1 Diabetes mellitus complication detail: without coma Qualified Code(s): E10.10 - Type 1 diabetes mellitus with ketoacidosis without coma Vomiting Qualifiers: Vomiting type: unspecified Vomiting Intractability: unspecified Nausea presence : unspecified Qualified Code(s): R11.10 - Vomiting, unspecified Condition: Good Disposition: ADMITTED INPATIENT Admitting Provider: [facility] Unit Admitted: ICU
[2016-04-15] MEDS ORDERED: INSULIN REG, HUMAN 100 UNIT/ML 3 ML VIAL (PYX) ONE (09:13)
[2016-04-15] MEDS ORDERED: NORMAL SALINE 1000 ML 2,000 ML IV ONE (10:19)
--- NOTE | 2016-04-15 10:37 | PDOC H&P ---
History of Present Illness Admission Date/PCP: 04/15/16 09:23 Patient complains of: High blood sugar and dehydration History of Present Illness: ACE POSADA is a 21 year old male With a known history of insulin-dependent diabetes mellitus type I came to the ED with a history of high blood sugar and dehydration Patient was recently admitted at [facility] with same complaints and was treated for DKA He was discharged on 04/09 , prescribed Lantus insulin 20 units daily, and referred to the [facility] Patient states he did take his insulin as prescribed; he was well until yesterday evening and then felt ill this morning, extremely dehydrated and came to the ED for evaluation There is no history of fever chills chest pain shortness of breath, abdominal pain nausea or vomiting Patient states he never drinks much water as he doesn't like the taste of the water in his home Upon evaluation in the ED he was diagnosed of ketoacidosis with a blood sugar over 500 and a pH of 7.1 he was subsequently admitted to [facility] Past Medical History Cardiac Medical History: Reports: Hyperlipidema Endocrine Medical History: Reports: Diabetes Mellitus Type 1 Psychiatric Medical History: Reports: Depression Past Surgical History Past Surgical History: Reports: Appendectomy Social History Smoking Status: Never Smoker Frequency of Alcohol Use: Occasional Hx Recreational Drug Use: No Drugs: None Hx Prescription Drug Abuse: No - Advance Directive Resuscitation Status: Full Code Family History Family History: DM, Hypertension Parental Family History Reviewed: Yes Children Family History Reviewed: Yes Sibling(s) Family History Reviewed.: Yes Medication/Allergy Home Medications: Citalopram Hydrobromide [Celexa 40 mg Tablet] 40 mg PO DAILY #30 04/06/16 Acetaminophen [Tylenol 325 mg Tablet] 650 mg PO Q4HP PRN tablet 04/09/16 Flu Vacc [id number] 36Mos Up/Pf [Fluzone Adlt Quad [id number] Vac 0.5 ml Syr] 0.5 ml IM .AT DISCHARGE PRN disp.syrin 04/09/16 Insulin Glargine,Hum.rec.anlog [Lantus Insulin 100 Unit/mL] 20 unit SUBCUT Q12 # 1 vial 04/09/16 Insulin Lispro [Humalog Insulin (Lispro) 100 unit/mL] 0 - 12 unit SUBCUT ACHSP PRN unit 04/09/16 Allergies/Adverse Reactions: No Known Allergies Allergy (Verified 04/15/16 07:28) Review of Systems Constitutional: PRESENT: as per HPI Eyes: ABSENT: visual disturbances Ears: ABSENT: hearing changes Nose, Mouth, and Throat: ABSENT: as per HPI, headache(s), mouth pain, sore throat, vertigo, other Respiratory: ABSENT: as per HPI, cough, dyspnea, hemoptysis, sputum, other Gastrointestinal: ABSENT: as per HPI, abdominal pain, bloating, coffee ground emesis, constipation, diarrhea, dysphagia, heartburn, hematemesis, hematochezia , melena, nausea, vomiting, other Neurological: ABSENT: abnormal gait, abnormal speech, confusion, dizziness, focal weakness, syncope Endocrine: PRESENT: polydipsia, polyuria Allergic/Immunologic: ABSENT: as per HPI, seasonal rhinorrhea, other Physical Exam Vital Signs: Temp Pulse Resp BP Pulse Ox 97.1 F 146 H 11 L 141/62 H 100 04/15/16 07:28 04/15/16 07:28 04/15/16 08:01 04/15/16 08:01 04/15/16 08:01 Strong smell of acetone in the breath General appearance: PRESENT: mild distress, thin Eye exam: PRESENT: conjunctiva pink, EOMI, PERRLA. ABSENT: scleral icterus Mouth exam: PRESENT: dry mucosa, tongue midline Neck exam: ABSENT: carotid bruit, JVD, lymphadenopathy, thyromegaly Respiratory exam: PRESENT: clear to auscultation saul. ABSENT: rales, rhonchi, wheezes Vascular exam: PRESENT: normal capillary refill GI/Abdominal exam: PRESENT: normal bowel sounds, soft. ABSENT: distended, guarding, mass, organolmegaly, rebound, tenderness Extremities exam: PRESENT: full ROM. ABSENT: calf tenderness, clubbing, pedal edema Neurological exam: PRESENT: alert, awake, oriented to person, oriented to place , oriented to time, oriented to situation, CN II-XII grossly intact. ABSENT: motor sensory deficit Psychiatric exam: PRESENT: appropriate affect, normal mood. ABSENT: homicidal ideation, suicidal ideation Results Laboratory Results: Labs- All tests 24 hr 04/15/16 04/15/16 04/15/16 07:55 07:55 07:55 WBC 14.1 H RBC 4.82 Hgb 15.0 Hct 47.2 MCV 98 H D MCH 31.2 MCHC 31.8 L RDW 13.8 Plt Count 478 H Seg Neutrophils % 63.1 Lymphocytes % 30.3 Monocytes % 5.9 Eosinophils % 0.1 Basophils % 0.6 Absolute Neutrophils 8.9 H Absolute Lymphocytes 4.3 Absolute Monocytes 0.8 Absolute Eosinophils 0.0 Absolute Basophils 0.1 PT 13.0 INR 0.95 VBG pH VBG pCO2 VBG HCO3 VBG Base Excess Sodium 138.3 Potassium 4.9 Chloride 89 L Carbon Dioxide 5 L* Anion Gap 44 H BUN 20 Creatinine 0.99 Est GFR ( Amer) > 60 Est GFR (Non-Af Amer) > 60 Glucose 796 H* Calcium 11.1 H Magnesium 2.1 Total Bilirubin 0.7 Direct Bilirubin 0.0 AST 25 ALT 42 Alkaline Phosphatase 131 H Total Protein 8.3 H Albumin 4.7 Lipase 47.8 04/15/16 08:10 WBC RBC Hgb Hct MCV MCH MCHC RDW Plt Count Seg Neutrophils % Lymphocytes % Monocytes % Eosinophils % Basophils % Absolute Neutrophils Absolute Lymphocytes Absolute Monocytes Absolute Eosinophils Absolute Basophils PT INR VBG pH 7.14 L* VBG pCO2 28.7 L VBG HCO3 9.4 L VBG Base Excess -18.2 Sodium Potassium Chloride Carbon Dioxide Anion Gap BUN Creatinine Est GFR ( Amer) Est GFR (Non-Af Amer) Glucose Calcium Magnesium Total Bilirubin Direct Bilirubin AST ALT Alkaline Phosphatase Total Protein Albumin Lipase Assessment & Plan - Diagnosis (2) DKA (diabetic ketoacidoses) Qualifiers: Diabetes mellitus type: type 1 Diabetes mellitus complication detail: without coma Qualified Code(s): E10.10 - Type 1 diabetes mellitus with ketoacidosis without coma Is this a current diagnosis for this admission?: Yes (3) Dehydration Is this a current diagnosis for this admission?: Yes - Time Time Spent with patient: We will initiate DKA protocol We will give 2 more boluses over thousand milliliters normal saline Increase IV fluids to 250 mL per hour Patient will be admitted to [facility] as an inpatient Time Spent: 50 to 70 Minutes - Inpatient Certification Based on my medical assessment, after consideration of the patient's comorbidities, presenting symptoms, or acuity I expect that the services needed warrant INPATIENT care.: Yes I certify that my determination is in accordance with my understanding of Medicare's requirements for reasonable and necessary INPATIENT services [42 CFR 412.3e].: Yes Medical Necessity: Need Close Monitoring Due to Risk of Patient Decompensation, Need For IV Fluids, Need For Continuous Telemetry Monitoring - Plan Summary Plan Summary: admit inpatient IMCU
[2016-04-15 11:39] LABS: BLOOD UREA NITROGEN 16 mg/dL (7-20); CALCIUM 9.1 mg/dL (8.4-10.2); CREATININE RESULT 0.86 mg/dL (0.52-1.25); POTASSIUM 5.3 mmol/L (3.6-5.0)
[2016-04-15 11:50] LABS: APPEARANCE,URINE CLEAR; BILIRUBIN,URINE NEGATIVE (NEGATIVE); GLUCOSE, URINE >=500 mg/dL (NEGATIVE); KETONES,URINE 80 mg/dL (NEGATIVE); LEUKOCYTE ESTERASE,URINE NEGATIVE (NEGATIVE); NITRITE,URINE NEGATIVE (NEGATIVE); PROTEIN,URINE NEGATIVE (NEGATIVE); URINE SPECIFIC GRAVITY 1.022; UROBILINOGEN,URINE NEGATIVE mg/dL (<2.0)
[2016-04-15 11:55] LABS: CHLORIDE 107 mmol/L (98-107); SODIUM 144.3 mmol/L (137-145)
[2016-04-15 12:06] LABS: ANION GAP 31 (5-19)
[2016-04-15 12:10] LABS: CARBON DIOXIDE 6 mmol/L (22-30); GLUCOSE 480 mg/dL (75-110)
[2016-04-15] MEDS: DEXTROSE 5%-1/2 NORMAL SALINE 1,000 ML IV PRN ×2 (14:37→18:21)
[2016-04-15 15:24] LABS: ANION GAP 15 (5-19); BLOOD UREA NITROGEN 11 mg/dL (7-20); CALCIUM 8.5 mg/dL (8.4-10.2); CHLORIDE 107 mmol/L (98-107); CREATININE RESULT 0.59 mg/dL (0.52-1.25); GLUCOSE 142 mg/dL (75-110); SODIUM 138.1 mmol/L (137-145)
[2016-04-15 15:41] LABS: CARBON DIOXIDE 16 mmol/L (22-30); POTASSIUM 4.1 mmol/L (3.6-5.0)
[2016-04-15 18:44] LABS: ANION GAP 9 (5-19); BLOOD UREA NITROGEN 11 mg/dL (7-20); CALCIUM 8.7 mg/dL (8.4-10.2); CARBON DIOXIDE 21 mmol/L (22-30); CHLORIDE 107 mmol/L (98-107); CREATININE RESULT 0.61 mg/dL (0.52-1.25); GLUCOSE 79 mg/dL (75-110); POTASSIUM 3.5 mmol/L (3.6-5.0); SODIUM 137.4 mmol/L (137-145)
[2016-04-15] MEDS ORDERED: INSULIN GLARGINE,HUM.REC.ANLOG 1,000 UNIT/10 ML UNIT SUBCUT ONE (20:00)
[2016-04-15 23:10] LABS: ANION GAP 15 (5-19); BLOOD UREA NITROGEN 10 mg/dL (7-20); CALCIUM 8.9 mg/dL (8.4-10.2); CARBON DIOXIDE 20 mmol/L (22-30); CHLORIDE 100 mmol/L (98-107); CREATININE RESULT 0.63 mg/dL (0.52-1.25); GLUCOSE 342 mg/dL (75-110); SODIUM 135.2 mmol/L (137-145)
[2016-04-15 23:19] LABS: POTASSIUM 4.6 mmol/L (3.6-5.0)
[2016-04-15] MEDS ORDERED: INSULIN LISPRO 100 UNIT/ML 3 ML VIAL ONE (23:46)
[2016-04-15] MEDS ORDERED: DEXTROSE 40% GEL 15 GM TUBE X 2 PO PRN (23:54)
[2016-04-15] MEDS ORDERED: DEXTROSE 50%-WATER SYRINGE 25 GM/50 ML DOSE IV PRN (23:54)
[2016-04-15] MEDS ORDERED: DEXTROSE 50%-WATER SYRINGE 12.5 GM/25 ML DOSE IV PRN (23:54)
[2016-04-16 02:54] LABS: ANION GAP 16 (5-19); BLOOD UREA NITROGEN 9 mg/dL (7-20); CALCIUM 8.8 mg/dL (8.4-10.2); CARBON DIOXIDE 16 mmol/L (22-30); CHLORIDE 101 mmol/L (98-107); CREATININE RESULT 0.66 mg/dL (0.52-1.25); GLUCOSE 338 mg/dL (75-110); POTASSIUM 4.7 mmol/L (3.6-5.0); SODIUM 132.9 mmol/L (137-145)
[2016-04-16] MEDS: DEXTROSE 5%-1/2 NORMAL SALINE 1,000 ML IV PRN (06:34)
[2016-04-16 07:49] LABS: ANION GAP 15 (5-19); BLOOD UREA NITROGEN 9 mg/dL (7-20); CARBON DIOXIDE 18 mmol/L (22-30); CHLORIDE 99 mmol/L (98-107); CREATININE RESULT 0.57 mg/dL (0.52-1.25); GLUCOSE 341 mg/dL (75-110); MAGNESIUM 1.6 mg/dL (1.6-2.3); POTASSIUM 4.3 mmol/L (3.6-5.0)
[2016-04-16] MEDS: INSULIN LISPRO 100 UNIT/ML 3 ML VIAL SUBCUT PRN ×4 (08:17→21:56)
[2016-04-16] MEDS: ENOXAPARIN SODIUM INJ 40 MG/0.4 ML DISP.SYRIN SUBCUT SCH (08:19)
--- NOTE | 2016-04-16 09:17 | PDOC PROGRESS REPORT ---
Subjective Progress Note for:: 04/16/16 Subjective:: Patient is doing very well His gap was closed last evening He is now on normal saline and Lantus was initiated Tolerated breakfast well Patient will be kept another 24 hours as he has extremely brittle diabetes And during his last admission he was hypoglycemic at times Physical Exam Vital Signs: Temp Pulse Resp BP Pulse Ox 98.0 F 85 20 119/62 99 04/16/16 03:27 04/16/16 03:27 04/16/16 03:27 04/16/16 03:27 04/16/16 03:27 Intake & Output 04/15/16 04/16/16 04/17/16 00:59 00:59 00:59 Intake Total 1798 1505 Output Total 300 400 Balance 1498 1105 Weight 68.8 kg General appearance: PRESENT: no acute distress, well-developed, well-nourished Head exam: PRESENT: atraumatic, normocephalic Eye exam: PRESENT: conjunctiva pink, EOMI, PERRLA. ABSENT: scleral icterus Ear exam: PRESENT: normal external ear exam Mouth exam: PRESENT: moist, tongue midline Neck exam: ABSENT: carotid bruit, JVD, lymphadenopathy, thyromegaly Respiratory exam: PRESENT: clear to auscultation saul. ABSENT: rales, rhonchi, wheezes Cardiovascular exam: PRESENT: RRR. ABSENT: diastolic murmur, rubs, systolic murmur Pulses: PRESENT: normal dorsalis pedis pul Vascular exam: PRESENT: normal capillary refill GI/Abdominal exam: PRESENT: normal bowel sounds, soft. ABSENT: distended, guarding, mass, organolmegaly, rebound, tenderness Rectal exam: PRESENT: deferred Extremities exam: PRESENT: full ROM. ABSENT: calf tenderness, clubbing, pedal edema Neurological exam: PRESENT: alert, awake, oriented to person, oriented to place , oriented to time, oriented to situation, CN II-XII grossly intact. ABSENT: motor sensory deficit Psychiatric exam: PRESENT: appropriate affect, normal mood. ABSENT: homicidal ideation, suicidal ideation Skin exam: PRESENT: dry, intact, warm. ABSENT: cyanosis, rash Results Laboratory Results: 04/16/16 06:55 04/15/16 04/15/16 04/15/16 10:25 11:10 14:47 Sodium 144.3 138.1 Potassium 5.3 H 4.1 D Chloride 107 107 Carbon Dioxide 6 L* 16 L D Anion Gap 31 H 15 BUN 16 11 Creatinine 0.86 0.59 Est GFR ( Amer) > 60 > 60 Est GFR (Non-Af Amer) > 60 > 60 Glucose 480 H* 142 H Calcium 9.1 8.5 Magnesium Urine Color COLORLESS Urine Appearance CLEAR Urine pH 5.0 Ur Specific Gardner 1.022 Urine Protein NEGATIVE Urine Glucose (UA) >=500 H Urine Ketones 80 H Urine Blood NEGATIVE Urine Nitrite NEGATIVE Ur Leukocyte Esterase NEGATIVE Urine WBC (Auto) 0 Urine RBC (Auto) 1 04/15/16 04/15/16 04/16/16 18:20 22:20 02:31 Sodium 137.4 135.2 L 132.9 L Potassium 3.5 L 4.6 D 4.7 Chloride 107 100 101 Carbon Dioxide 21 L 20 L 16 L Anion Gap 9 15 16 BUN 11 10 9 Creatinine 0.61 0.63 0.66 Est GFR ( Amer) > 60 > 60 > 60 Est GFR (Non-Af Amer) > 60 > 60 > 60 Glucose 79 342 H 338 H Calcium 8.7 8.9 8.8 Magnesium Urine Color Urine Appearance Urine pH Ur Specific Gardner Urine Protein Urine Glucose (UA) Urine Ketones Urine Blood Urine Nitrite Ur Leukocyte Esterase Urine WBC (Auto) Urine RBC (Auto) 04/16/16 06:55 Sodium 132.0 L Potassium 4.3 Chloride 99 Carbon Dioxide 18 L Anion Gap 15 BUN 9 Creatinine 0.57 Est GFR ( Amer) > 60 Est GFR (Non-Af Amer) > 60 Glucose 341 H Calcium 9.0 Magnesium 1.6 Urine Color Urine Appearance Urine pH Ur Specific Gardner Urine Protein Urine Glucose (UA) Urine Ketones Urine Blood Urine Nitrite Ur Leukocyte Esterase Urine WBC (Auto) Urine RBC (Auto) Assessment & Plan - Diagnosis (1) Tachycardia Is this a current diagnosis for this admission?: YesPlan: Secondary to dehydration is resolving (2) DKA (diabetic ketoacidoses) Qualifiers: Diabetes mellitus type: type 1 Diabetes mellitus complication detail: without coma Qualified Code(s): E10.10 - Type 1 diabetes mellitus with ketoacidosis without coma Is this a current diagnosis for this admission?: YesPlan: Resolved we will resume Lantus insulin and sliding scale (3) Dehydration Is this a current diagnosis for this admission?: Yes - Time Time Spent with patient: Patient will be transferred to medical unit Time Spent with patient: 25-34 minutes
[2016-04-16] MEDS ORDERED: INSULIN GLARGINE,HUM.REC.ANLOG 1,000 UNIT/10 ML UNIT SUBCUT SCH (10:00)
[2016-04-16] MEDS: NORMAL SALINE 1000 ML 1,000 ML IV PRN (10:20)
[2016-04-16] MEDS: INSULIN GLARGINE,HUM.REC.ANLOG 300 UNIT/3 ML INSULN.PEN SUBCUT SCH ×2 (10:29→21:49)
[2016-04-17] MEDS: NORMAL SALINE 1000 ML 1,000 ML IV PRN ×2 (02:05→12:12)
[2016-04-17 05:39] LABS: ANION GAP 10 (5-19); BLOOD UREA NITROGEN 11 mg/dL (7-20); CALCIUM 8.9 mg/dL (8.4-10.2); CHLORIDE 103 mmol/L (98-107); CREATININE RESULT 0.47 mg/dL (0.52-1.25); GLUCOSE 41 mg/dL (75-110); SODIUM 141.4 mmol/L (137-145)
[2016-04-17 05:56] LABS: CARBON DIOXIDE 28 mmol/L (22-30); POTASSIUM 2.8 mmol/L (3.6-5.0)
[2016-04-17] MEDS: ENOXAPARIN SODIUM INJ 40 MG/0.4 ML DISP.SYRIN SUBCUT SCH (07:40)
[2016-04-17] MEDS ORDERED: POTASSIUM CHLORIDE INJ 40 MEQ/20 ML SDV IV ONE (08:00)
[2016-04-17] MEDS: POTASSIUM CHLORIDE 20 MEQ/50 ML RTU IV SCH ×2 (08:10→09:49)
[2016-04-17] MEDS: INSULIN GLARGINE,HUM.REC.ANLOG 300 UNIT/3 ML INSULN.PEN SUBCUT SCH (09:27)
[2016-04-17] MEDS ORDERED: INSULIN GLARGINE,HUM.REC.ANLOG 300 UNIT/3 ML INSULN.PEN SUBCUT SCH (10:30)
--- NOTE | 2016-04-17 14:29 | PDOC PROGRESS REPORT ---
Subjective Progress Note for:: 04/17/16 Subjective:: Patient's blood sugars are still very unpredictable and fluctuating between 300 and 50 hypoglycemic episodes occur content writer e is otherwise asymptomatic anion gap is closed we will switch the lantus to one dose in am, and initiate small doses lispro before meals when accuchecks are predictable Patient will need inpatient monitoring for 48-72 hours Physical Exam Vital Signs: Temp Pulse Resp BP Pulse Ox 98.3 F 87 19 125/71 96 04/17/16 12:18 04/17/16 12:18 04/17/16 12:18 04/17/16 12:18 04/17/16 12:18 Intake & Output 04/16/16 04/17/16 04/18/16 00:59 00:59 00:59 Intake Total 1798 3506 1651 Output Total 300 402 Balance 1498 3104 1651 Weight 68.8 kg 68.9 kg Results Laboratory Results: 04/17/16 04:25 Sodium 141.4 Potassium 2.8 L* D Chloride 103 Carbon Dioxide 28 D Anion Gap 10 BUN 11 Creatinine 0.47 L Est GFR ( Amer) > 60 Est GFR (Non-Af Amer) > 60 Glucose 41 L Calcium 8.9 04/15/16 10:25 Clean Catch Midstream Urine Culture - Final NO GROWTH 2 DAYS Assessment & Plan - Diagnosis (1) Tachycardia Is this a current diagnosis for this admission?: YesPlan: resolved fluids replenished (2) DKA (diabetic ketoacidoses) Qualifiers: Diabetes mellitus type: type 1 Diabetes mellitus complication detail: without coma Qualified Code(s): E10.10 - Type 1 diabetes mellitus with ketoacidosis without coma Is this a current diagnosis for this admission?: YesPlan: resolved (3) Dehydration Is this a current diagnosis for this admission?: Yes - Time Time Spent with patient: 25-34 minutes
[2016-04-17 14:32] LABS: ANION GAP 13 (5-19); BLOOD UREA NITROGEN 8 mg/dL (7-20); CALCIUM 9.5 mg/dL (8.4-10.2); CARBON DIOXIDE 29 mmol/L (22-30); CHLORIDE 99 mmol/L (98-107); CREATININE RESULT 0.61 mg/dL (0.52-1.25); GLUCOSE 206 mg/dL (75-110); SODIUM 140.6 mmol/L (137-145)
[2016-04-17 14:45] LABS: POTASSIUM 4.1 mmol/L (3.6-5.0)
[2016-04-18] MEDS: NORMAL SALINE 1000 ML 1,000 ML IV PRN (03:57)
[2016-04-18 05:34] LABS: ANION GAP 8 (5-19); BLOOD UREA NITROGEN 12 mg/dL (7-20); CALCIUM 9.2 mg/dL (8.4-10.2); CARBON DIOXIDE 30 mmol/L (22-30); CHLORIDE 101 mmol/L (98-107); CREATININE RESULT 0.51 mg/dL (0.52-1.25); GLUCOSE 300 mg/dL (75-110); POTASSIUM 4.1 mmol/L (3.6-5.0); SODIUM 139.2 mmol/L (137-145)
[2016-04-18] MEDS: INSULIN LISPRO 100 UNIT/ML 3 ML VIAL SUBCUT PRN ×4 (07:12→22:48)
[2016-04-18] MEDS: ENOXAPARIN SODIUM INJ 40 MG/0.4 ML DISP.SYRIN SUBCUT SCH (07:26)
[2016-04-18] MEDS ORDERED: INSULIN GLARGINE,HUM.REC.ANLOG 300 UNIT/3 ML INSULN.PEN SUBCUT SCH (10:00)
[2016-04-18] MEDS ORDERED: INSULIN LISPRO 100 UNIT/ML 3 ML VIAL SUBCUT SCH ×2 (11:00→16:00)
--- NOTE | 2016-04-18 14:46 | PDOC PROGRESS REPORT ---
Subjective Progress Note for:: 04/18/16 Subjective:: feels well no complaints Blood sugars still erratic No hypoglycemia this morning continuing to adjust insulin Discontinued IV fluids Physical Exam Vital Signs: Temp Pulse Resp BP Pulse Ox 97.6 F 83 19 125/77 97 04/18/16 11:24 04/18/16 13:59 04/18/16 11:24 04/18/16 11:24 04/18/16 11:24 Intake & Output 04/17/16 04/18/16 04/19/16 00:59 00:59 00:59 Intake Total 3506 3672 2022 Output Total 402 Balance 3104 3672 2022 Weight 68.8 kg 68.9 kg 71.1 kg General appearance: PRESENT: no acute distress, well-developed, well-nourished Head exam: PRESENT: atraumatic, normocephalic Eye exam: PRESENT: conjunctiva pink, EOMI, PERRLA. ABSENT: scleral icterus Ear exam: PRESENT: normal external ear exam Mouth exam: PRESENT: moist, tongue midline Neck exam: ABSENT: carotid bruit, JVD, lymphadenopathy, thyromegaly Respiratory exam: PRESENT: clear to auscultation saul. ABSENT: rales, rhonchi, wheezes Cardiovascular exam: PRESENT: RRR. ABSENT: diastolic murmur, rubs, systolic murmur Pulses: PRESENT: normal dorsalis pedis pul Vascular exam: PRESENT: normal capillary refill GI/Abdominal exam: PRESENT: normal bowel sounds, soft. ABSENT: distended, guarding, mass, organolmegaly, rebound, tenderness Rectal exam: PRESENT: deferred Extremities exam: PRESENT: full ROM. ABSENT: calf tenderness, clubbing, pedal edema Neurological exam: PRESENT: alert, awake, oriented to person, oriented to place , oriented to time, oriented to situation, CN II-XII grossly intact. ABSENT: motor sensory deficit Psychiatric exam: PRESENT: appropriate affect, normal mood. ABSENT: homicidal ideation, suicidal ideation Skin exam: PRESENT: dry, intact, warm. ABSENT: cyanosis, rash Results Laboratory Results: 04/18/16 04:27 04/17/16 04/18/16 13:45 04:27 Sodium 140.6 139.2 Potassium 4.1 D 4.1 Chloride 99 101 Carbon Dioxide 29 30 Anion Gap 13 8 BUN 8 12 Creatinine 0.61 0.51 L Est GFR ( Amer) > 60 > 60 Est GFR (Non-Af Amer) > 60 > 60 Glucose 206 H 300 H Calcium 9.5 9.2 04/15/16 10:25 Clean Catch Midstream Urine Culture - Final NO GROWTH 2 DAYS Assessment & Plan - Diagnosis (1) Tachycardia Is this a current diagnosis for this admission?: Yes (2) DKA (diabetic ketoacidoses) Qualifiers: Diabetes mellitus type: type 1 Diabetes mellitus complication detail: without coma Qualified Code(s): E10.10 - Type 1 diabetes mellitus with ketoacidosis without coma Is this a current diagnosis for this admission?: Yes (3) Dehydration Is this a current diagnosis for this admission?: Yes - Time Time Spent with patient: continu present mangement increase morning lantus will d/c in am Time Spent with patient: 25-34 minutes
[2016-04-19] MEDS: INSULIN LISPRO 100 UNIT/ML 3 ML VIAL SUBCUT PRN ×2 (07:06→07:25)
[2016-04-19] MEDS: ENOXAPARIN SODIUM INJ 40 MG/0.4 ML DISP.SYRIN SUBCUT SCH (07:27)
[2016-04-19] MEDS ORDERED: INSULIN LISPRO 100 UNIT/ML 3 ML VIAL SUBCUT SCH ×3 (09:14→09:15)
[2016-04-19] MEDS ORDERED: INSULIN GLARGINE,HUM.REC.ANLOG 300 UNIT/3 ML INSULN.PEN SUBCUT SCH ×2 (10:00)
[2016-04-19 16:40] VITALS: BP 132/80
--- NOTE | 2016-04-19 17:49 | PDOC DISCHARGE SUMMARY ---
General - Admit/Disc Date/PCP Admission Date/Primary Care Provider: 04/15/16 10:21 Discharge Date: 04/19/16 - Discharge Diagnosis (1) Tachycardia Is this a current diagnosis for this admission?: Yes (2) DKA (diabetic ketoacidoses) Is this a current diagnosis for this admission?: Yes (3) Dehydration Is this a current diagnosis for this admission?: Yes (4) Brittle diabetes mellitus Is this a current diagnosis for this admission?: Yes - Additional Information Resuscitation Status: Full Code Discharge Diet: Diabetic Discharge Activity: Activity As Tolerated Home Medications: Citalopram Hydrobromide [Celexa 40 mg Tablet] 40 mg PO DAILY #30 04/06/16 Acetaminophen [Tylenol 325 mg Tablet] 650 mg PO Q4HP PRN tablet 04/09/16 Flu Vacc [id number] Up/Pf [Fluzone Adlt Quad Vac 0.5 ml Syr] 0.5 ml IM .AT DISCHARGE PRN disp.syrin 04/09/16 Insulin Glargine,Hum.rec.anlog [Lantus Insulin 100 Unit/mL] 35 unit SUBCUT DAILY #1 insuln.pen 04/19/16 Insulin Lispro [Humalog Insulin (Lispro) 100 unit/mL] 0 - 12 unit SUBCUT ACHSP PRN #1 unit 04/19/16 Insulin Lispro [Humalog Insulin (Lispro) 100 unit/mL] 6 unit SUBCUT ACBRKFSTP # 1 unit 04/19/16 Insulin Lispro [Humalog Insulin (Lispro) 100 unit/mL] 6 unit SUBCUT ACLUNCH #1 unit 04/19/16 Insulin Lispro [Humalog Insulin (Lispro) 100 unit/mL] 6 unit SUBCUT ACSUPPER #1 unit 04/19/16 History of Present Illness Patient complains of: elevated blood sugars History of Present Illness: With a known history of insulin-dependent diabetes mellitus type I came to the ED with a history of high blood sugar and dehydration Patient was recently admitted at [facility] with same complaints and was treated for DKA He was discharged on 04/09 , prescribed Lantus insulin 20 units daily, and referred to the [facility] Patient states he did take his insulin as prescribed; he was well until yesterday evening and then felt ill this morning, extremely dehydrated and came to the ED for evaluation There is no history of fever chills chest pain shortness of breath, abdominal pain nausea or vomiting Patient states he never drinks much water as he doesn't like the taste of the water in his home Upon evaluation in the ED he was diagnosed of ketoacidosis with a blood sugar over 500 and a pH of 7.1 he was subsequently admitted to [facility] Course Hospital Course: Patient was initially treated for ketoacidosis according to protocol Ketoacidosis resolved The patient again was extremely difficult to manage with hypoglycemia vat cleaner and high readings in the afternoon The Lantus insulin was changed to only once a day in the morning, we continued lispro before meals Patient had continuous counseling about diabetic diet His blood sugars were finely better controlled He was then discharged home and an appointment was made with Dr. Mallorie Yao forest fire management officer at the [facility] to overlook his diabetic management Physical Exam Vital Signs: Temp Pulse Resp BP Pulse Ox 97.6 F 64 16 123/80 100 04/19/16 12:32 04/19/16 12:32 04/19/16 12:32 04/19/16 12:32 04/19/16 12:32 Intake & Output 04/18/16 04/19/16 04/20/16 00:59 00:59 00:59 Intake Total 3672 4678 953 Balance 3672 4678 953 Weight 68.9 kg 71.1 kg 72.1 kg General appearance: PRESENT: no acute distress, well-developed, well-nourished Head exam: PRESENT: atraumatic, normocephalic Eye exam: PRESENT: conjunctiva pink, EOMI, PERRLA. ABSENT: scleral icterus Ear exam: PRESENT: normal external ear exam Mouth exam: PRESENT: moist, tongue midline Neck exam: ABSENT: carotid bruit, JVD, lymphadenopathy, thyromegaly Respiratory exam: PRESENT: clear to auscultation saul. ABSENT: rales, rhonchi, wheezes Cardiovascular exam: PRESENT: RRR. ABSENT: diastolic murmur, rubs, systolic murmur Pulses: PRESENT: normal dorsalis pedis pul Vascular exam: PRESENT: normal capillary refill GI/Abdominal exam: PRESENT: normal bowel sounds, soft. ABSENT: distended, guarding, mass, organolmegaly, rebound, tenderness Rectal exam: PRESENT: deferred Extremities exam: PRESENT: full ROM. ABSENT: calf tenderness, clubbing, pedal edema Neurological exam: PRESENT: alert, awake, oriented to person, oriented to place , oriented to time, oriented to situation, CN II-XII grossly intact. ABSENT: motor sensory deficit Psychiatric exam: PRESENT: appropriate affect, normal mood. ABSENT: homicidal ideation, suicidal ideation Skin exam: PRESENT: dry, intact, warm. ABSENT: cyanosis, rash Results Laboratory Results: 04/18/16 04:27 04/18/16 04/18/16 04/18/16 11:52 16:21 22:21 POC Glucose 211 H 142 H 191 H 04/19/16 04/19/16 04/19/16 06:18 11:02 15:57 POC Glucose 356 H 117 H 94 Plan Discharge Plan: Discharged home to follow up with the care of [facility] and Dr. Mallorie Yao at the [facility] Time Spent: Less than 30 Minutes
== END 2016-04-19 18:00 | disposition home or self-care (01) | DRG 639 ==
LOC: ER 07:18 → UNDOADMIN 09:23 → EH 09:23 → 3N 12:25
PROVIDERS: ADMIT Emergency Medicine; ATTEND Emergency Medicine
DX: E10.10 Type 1 diabetes mellitus with ketoacidosis without coma (principal); E86.0 Dehydration; E78.5 Hyperlipidemia, unspecified; F32.9 Major depressive disorder, single episode, unspecified; R00.0 Tachycardia, unspecified; Z79.4 Long term (current) use of insulin; Z90.49 Acquired absence of other specified parts of digestive tract; Z82.49 Family history of ischemic heart disease and other diseases of the circulatory system; Z83.3 Family history of diabetes mellitus
CPT/HCPCS: 36415; 80048; 80053; 81001; 82803; 82962; 83690; 83735; 85025; 85610; 87086; 96374; 99285; J1650; J1815; J2405; J3480; J7030

== ENCOUNTER 2016-05-25 14:16 | Emergency (ER) | payer OTHER ==
--- NOTE | 2016-05-25 14:32 | ER Document Report ---
ED Medical Screen (RME) - General Stated Complaint: VOMMITING Mode of Arrival: Ambulatory Information source: Patient Notes: Patient presents to the emergency department with vomiting all day. Patient is a diabetic. He as been admitted for DKA multiple times. Last insulin injection was 11:30, 9 units ss. 40 units lantus at 1130. Last emesis 1330. Reports diarrhea, slight fever yesterday. I have greeted and performed a rapid initial assessment of this patient. A comprehensive ED assessment and evaluation of the patient, analysis of test results and completion of the medical decision making process will be conducted by additional ED providers. TRAVEL OUTSIDE OF THE [place] IN LAST 30 DAYS: No - Related Data Allergies/Adverse Reactions: No Known Allergies Allergy (Verified 04/15/16 07:28) Past Medical History - Past Medical History Cardiac Medical History: Reports: Hx Hypercholesterolemia Endocrine Medical History: Reports: Hx Diabetes Mellitus Type 1 Renal/ Medical History: Denies: Hx Peritoneal Dialysis Psychiatric Medical History: Reports: Hx Depression Past Surgical History: Reports: Hx Appendectomy - Immunizations Hx Diphtheria, Pertussis, Tetanus Vaccination: Yes Physical Exam - Vital signs Vitals: Pulse Resp BP Pulse Ox 116 H 16 137/87 H 99 05/25/16 14:21 05/25/16 14:21 05/25/16 14:21 05/25/16 14:21 Course - Vital Signs Vital signs: Temp Pulse Resp BP Pulse Ox 116 H 16 137/87 H 99 05/25/16 14:21 05/25/16 14:21 05/25/16 14:21 05/25/16 14:21
[2016-05-25] MEDS ORDERED: NORMAL SALINE 1000 ML 1,000 ML IV ONE ×3 (14:33→19:14)
[2016-05-25 15:08] LABS: ABSOLUTE MONOCYTES (AUTO) 0.5 10^3/uL (0.1-1.4); ABSOLUTE NEUT (AUTO) 4.4 10^3/uL (1.7-8.2); BASOPHILS % (AUTO) 0.4 % (0-2); EOSINOPHILS % (AUTO) 0.4 % (0-6); HEMATOCRIT 47.7 % (37.9-51.0); HEMOGLOBIN 16.3 g/dL (13.5-17.0); HGB HCT DIFFERENCE 1.2; LYMPHOCYTES % (AUTO) 37.3 % (13-45); MEAN CORPUSCULAR HEMOGLOBIN 30.9 pg (27.0-33.4); MEAN CORPUSCULAR HGB CONC 34.2 g/dL (32.0-36.0); MEAN CORPUSCULAR VOLUME 91 fl (80-97); MONOCYTES % (AUTO) 6.2 % (3-13); RED BLOOD COUNT 5.28 10^6/uL (4.35-5.55); SEGMENTED NEUTROPHILS % (AUTO) 55.7 % (42-78)
[2016-05-25 15:10] LABS: VENOUS BLOOD BASE EXCESS -8.3 mmol/L; VENOUS BLOOD HCO3 18.8 mmol/L (20-32); VENOUS BLOOD PCO2 43.9 mmHg (35-63); VENOUS BLOOD PH 7.25 (7.30-7.42)
[2016-05-25 15:13] LABS: APPEARANCE,URINE CLEAR; BILIRUBIN,URINE NEGATIVE (NEGATIVE); GLUCOSE, URINE >=500 mg/dL (NEGATIVE); KETONES,URINE 80 mg/dL (NEGATIVE); LEUKOCYTE ESTERASE,URINE NEGATIVE (NEGATIVE); NITRITE,URINE NEGATIVE (NEGATIVE); PROTEIN,URINE NEGATIVE (NEGATIVE); URINE SPECIFIC GRAVITY 1.031; UROBILINOGEN,URINE NEGATIVE mg/dL (<2.0)
[2016-05-25 15:32] LABS: ALANINE AMINOTRANSFERASE 32 U/L (21-72); ALBUMIN 5.3 g/dL (3.5-5.0); ALKALINE PHOSPHATASE 116 U/L (38-126); ASPARTATE AMINO TRANSFERASE 15 U/L (17-59); BILIRUBIN,TOTAL 0.9 mg/dL (0.2-1.3); BLOOD UREA NITROGEN 13 mg/dL (7-20); CALCIUM 10.3 mg/dL (8.4-10.2); CHLORIDE 91 mmol/L (98-107); CREATININE RESULT 0.76 mg/dL (0.52-1.25); LIPASE 37.7 U/L (23-300); TOTAL PROTEIN 8.2 g/dL (6.3-8.2)
[2016-05-25 15:40] LABS: CARBON DIOXIDE 19 mmol/L (22-30)
[2016-05-25 15:45] LABS: POTASSIUM 4.6 mmol/L (3.6-5.0)
[2016-05-25 15:46] LABS: ANION GAP 25 (5-19)
[2016-05-25 15:48] LABS: GLUCOSE 535 mg/dL (75-110)
--- NOTE | 2016-05-25 16:01 | ER Document Report ---
ED General - General Mode of Arrival: Ambulatory Information source: Patient TRAVEL OUTSIDE OF THE [place] IN LAST 30 DAYS: No - HPI Patient complains to provider of: Nausea and Vomiting Onset: This morning Associated symptoms: Other - see above <JERSEY AVITIA - Last Filed: 05/25/16 16:25> <ONEL ROBERT - Last Filed: 05/25/16 21:56> - General Chief Complaint: High Blood Sugar Stated Complaint: VOMITING Notes: 21 year old male with history of Type I Diabetes Mellitus, hyperlipidemia, and DKA presents to the ED complaining of nausea, vomiting, and mild diarrhea that started this morning. Patient's blood sugar was 292 at 1130 when he proceeded to take 9 units of his insulin. Patient is also complaining of a dry mouth and mild abdominal cramping. (JERSEY AVITIA) - Related Data Allergies/Adverse Reactions: No Known Allergies Allergy (Verified 05/25/16 14:31) Past Medical History - General Information source: Patient - Social History Smoking Status: Never Smoker Chew tobacco use (# tins/day): No Frequency of alcohol use: None Drug Abuse: None Family History: DM, Hypertension Patient has suicidal ideation: No Patient has homicidal ideation: No - Past Medical History Cardiac Medical History: Reports: Hx Hypercholesterolemia Endocrine Medical History: Reports: Hx Diabetes Mellitus Type 1 Renal/ Medical History: Denies: Hx Peritoneal Dialysis Psychiatric Medical History: Reports: Hx Depression Past Surgical History: Reports: Hx Appendectomy - Immunizations Hx Diphtheria, Pertussis, Tetanus Vaccination: Yes Hx Pneumococcal Vaccination: 03/17/15 <JERSEY AVITIA - Last Filed: 05/25/16 16:25> Review of Systems - Review of Systems Constitutional: No symptoms reported EENT: See HPI, Other - dry mouth Cardiovascular: No symptoms reported Respiratory: No symptoms reported Gastrointestinal: See HPI, Abdominal pain - cramping, Diarrhea, Nausea, Vomiting Genitourinary: No symptoms reported Male Genitourinary: No symptoms reported Musculoskeletal: No symptoms reported Skin: No symptoms reported Hematologic/Lymphatic: No symptoms reported Neurological/Psychological: No symptoms reported -: Yes All other systems reviewed and negative <JERSEY AVITIA - Last Filed: 05/25/16 16:25> Physical Exam - Vital signs Interpretation: Tachycardic - mildly, Tachypneic - mildly - General General appearance: Alert, Other - Strong ketone breath In distress: None - HEENT Head: Normocephalic, Atraumatic Eyes: Normal Extraocular movements intact: Yes Pupils: PERRL - Respiratory Respiratory status: No respiratory distress Breath sounds: Normal - Cardiovascular Rhythm: Regular, Tachycardia - mildly Heart sounds: Normal auscultation - Abdominal Inspection: Normal Distension: No distension Bowel sounds: Normal Tenderness: Nontender - Back Back: Normal - Extremities General upper extremity: Normal inspection, Normal ROM General lower extremity: Normal inspection, Normal ROM - Neurological Neuro grossly intact: Yes - Psychological Associated symptoms: Normal affect, Normal mood - Skin Skin Temperature: Warm Skin Moisture: Dry Skin Color: Normal <JERSEY AVITIA - Last Filed: 05/25/16 16:25> <ONEL ROBERT - Last Filed: 05/25/16 21:56> - Vital signs Vitals: Pulse Resp BP Pulse Ox 116 H 16 137/87 H 99 05/25/16 14:21 05/25/16 14:21 05/25/16 14:21 05/25/16 14:21 Course - Laboratory Result Diagrams: 05/25/16 14:20 05/25/16 14:20 <JERSEY AVITIA - Last Filed: 05/25/16 16:25> - Laboratory Result Diagrams: 05/25/16 14:20 05/25/16 19:32 <ONEL ROBERT - Last Filed: 05/25/16 21:56> - Re-evaluation Re-evalutation: 05/25/16 18:05 Accu-Chek was down to 221 at 5:30 PM. The insulin drip was stopped. 05/25/16 21:54 After 2 L of IV fluids, the patient's blood sugars 205, serum CO2 is gone from 19-24, BUN has gone from 13-10. He got an additional liter of fluid while we were waiting for the lab to find the blood work that had been sent to them and round. At this time he feels much better and is actually asking for something to eat. He feels comfortable going home and continuing drinking fluids and using sliding scale insulin. (ONEL ROBERT) - Vital Signs Vital signs: Temp Pulse Resp BP Pulse Ox 116 H 13 109/56 L 100 05/25/16 14:21 05/25/16 19:01 05/25/16 19:01 05/25/16 19:01 - Laboratory Laboratory results interpreted by me: 05/25/16 05/25/16 05/25/16 14:20 14:20 14:20 VBG pH 7.25 L VBG HCO3 18.8 L Sodium 135.0 L Chloride 91 L Carbon Dioxide 19 L Anion Gap 25 H Creatinine Glucose 535 H* POC Glucose Calcium 10.3 H AST 15 L Albumin 5.3 H Urine Glucose (UA) >=500 H Urine Ketones 80 H 05/25/16 05/25/16 05/25/16 14:32 17:27 18:38 VBG pH VBG HCO3 Sodium Chloride Carbon Dioxide Anion Gap Creatinine Glucose POC Glucose > 550 H* 221 H 174 H Calcium AST Albumin Urine Glucose (UA) Urine Ketones 05/25/16 19:32 VBG pH VBG HCO3 Sodium 136.9 L Chloride Carbon Dioxide Anion Gap Creatinine 0.51 L Glucose 205 H POC Glucose Calcium AST Albumin Urine Glucose (UA) Urine Ketones Discharge <JERSEY AVITIA - Last Filed: 05/25/16 16:25> <ONEL ROBERT - Last Filed: 05/25/16 21:56> - Discharge Clinical Impression: Dehydration Diabetic ketoacidosis Qualifiers: Diabetes mellitus type: type 1 Diabetes mellitus complication detail: without coma Qualified Code(s): E10.10 - Type 1 diabetes mellitus with ketoacidosis without coma Nausea and vomiting Qualifiers: Vomiting type: unspecified Vomiting Intractability: non-intractable Qualified Code(s): R11.2 - Nausea with vomiting, unspecified Condition: Stable Disposition: HOME, SELF-CARE Additional Instructions: Continue drinking plenty of fluids tonight. Check your sugars and use her sliding scale insulin. Return to emergency room if any problems. Scribe Attestation: 05/25/16 21:56 I personally performed the services described in the documentation, reviewed and edited the documentation which was dictated to the scribe in my presence, and it accurately records my words and actions. (ONEL ROBERT) Scribe Documentation - Scribe Written by Scribe:: Ruben Ortiz, 05/25/2016 1624 acting as scribe for :: Sujatha <JERSEY AVITIA - Last Filed: 05/25/16 16:25>
[2016-05-25] MEDS ORDERED: INSULIN REG, HUMAN 100 UNIT/ML 3 ML VIAL (PYX) IV ONE (16:07)
[2016-05-25] MEDS ORDERED: ONDANSETRON HCL INJ/PF 4 MG/2 ML SDV IV ONE (16:07)
[2016-05-25 20:57] LABS: ANION GAP 12 (5-19); BLOOD UREA NITROGEN 10 mg/dL (7-20); CALCIUM 8.9 mg/dL (8.4-10.2); CARBON DIOXIDE 24 mmol/L (22-30); CHLORIDE 101 mmol/L (98-107); CREATININE RESULT 0.51 mg/dL (0.52-1.25); GLUCOSE 205 mg/dL (75-110); POTASSIUM 3.9 mmol/L (3.6-5.0); SODIUM 136.9 mmol/L (137-145)
[2016-05-25 22:18] VITALS: BP 131/67
== END 2016-05-25 22:32 | disposition home or self-care (01) ==
LOC: ER 14:16
DX: E10.65 Type 1 diabetes mellitus with hyperglycemia (principal); E86.0 Dehydration; R11.2 Nausea with vomiting, unspecified
CPT/HCPCS: 99283; 96361; 96374; 36415; 82962; 83690; 85025; 80048; 80053; 81001; 82803; J1815; J2405; J7030

== ENCOUNTER 2016-05-26 06:52 | Inpatient (IN) | payer OTHER ==
[2016-05-26] MEDS ORDERED: NORMAL SALINE 1000 ML 1,000 ML IV PRN (07:14)
[2016-05-26 07:40] LABS: VENOUS BLOOD BASE EXCESS -17.8 mmol/L; VENOUS BLOOD HCO3 9.4 mmol/L (20-32); VENOUS BLOOD PCO2 27.6 mmHg (35-63)
[2016-05-26 07:42] LABS: ABSOLUTE BASOPHILS # (AUTO) 0.1 10^3/uL (0.0-0.2); ABSOLUTE EOSINOPHILS # (AUTO) 0.1 10^3/uL (0.0-0.6); ABSOLUTE LYMPHOCYTES (AUTO) 5.6 10^3/uL (0.5-4.7); BASOPHILS % (AUTO) 0.3 % (0-2); EOSINOPHILS % (AUTO) 0.4 % (0-6); HEMATOCRIT 48.4 % (37.9-51.0); HEMOGLOBIN 15.9 g/dL (13.5-17.0); HGB HCT DIFFERENCE -0.7; MEAN CORPUSCULAR HEMOGLOBIN 30.8 pg (27.0-33.4); MEAN CORPUSCULAR HGB CONC 32.9 g/dL (32.0-36.0); MEAN CORPUSCULAR VOLUME 94 fl (80-97); MONOCYTES % (AUTO) 5.1 % (3-13); RED BLOOD COUNT 5.16 10^6/uL (4.35-5.55); RED CELL DISTRIBUTION WIDTH 13.1 % (11.5-14.0); SEGMENTED NEUTROPHILS % (AUTO) 64.2 % (42-78)
[2016-05-26 07:45] LABS: VENOUS BLOOD PH 7.15 (7.30-7.42)
[2016-05-26 07:46] LABS: WHITE BLOOD COUNT 18.7 10^3/uL (4.0-10.5)
[2016-05-26] MEDS ORDERED: NORMAL SALINE 1000 ML 1,000 ML IV ONE ×2 (08:27→09:07)
[2016-05-26 08:30] LABS: ALANINE AMINOTRANSFERASE 27 U/L (21-72); ALBUMIN 4.8 g/dL (3.5-5.0); ALKALINE PHOSPHATASE 136 U/L (38-126); ASPARTATE AMINO TRANSFERASE 59 U/L (17-59); BILIRUBIN,TOTAL 0.8 mg/dL (0.2-1.3); BLOOD UREA NITROGEN 11 mg/dL (7-20); CALCIUM 9.7 mg/dL (8.4-10.2); CHLORIDE 95 mmol/L (98-107); CREATININE RESULT 0.91 mg/dL (0.52-1.25); LIPASE 26.3 U/L (23-300); MAGNESIUM 1.9 mg/dL (1.6-2.3); POTASSIUM 4.1 mmol/L (3.6-5.0); SODIUM 137.5 mmol/L (137-145); TOTAL PROTEIN 7.6 g/dL (6.3-8.2)
[2016-05-26 08:47] LABS: ANION GAP 33 (5-19)
[2016-05-26 08:49] LABS: CARBON DIOXIDE 10 mmol/L (22-30); GLUCOSE 617 mg/dL (75-110)
[2016-05-26] MEDS ORDERED: DEXTROSE 50%-WATER 25 GM/50 ML DISP.SYRIN IV PRN ×2 (09:06)
[2016-05-26] MEDS ORDERED: GLUCAGON,HUMAN RECOMB 1 MG INJ IM PRN (09:06)
[2016-05-26] MEDS ORDERED: NORMAL SALINE 100 ML with INSULIN REGULAR, HUMAN 100 UNIT IV PRN ×6 (09:06→23:22)
[2016-05-26] MEDS ORDERED: DEXTROSE 40% GEL 15 GM TUBE PO PRN ×2 (09:06)
[2016-05-26 09:10] LABS: APPEARANCE,URINE CLEAR; BILIRUBIN,URINE NEGATIVE (NEGATIVE); GLUCOSE, URINE >=500 mg/dL (NEGATIVE); KETONES,URINE 80 mg/dL (NEGATIVE); LEUKOCYTE ESTERASE,URINE NEGATIVE (NEGATIVE); NITRITE,URINE NEGATIVE (NEGATIVE); PROTEIN,URINE NEGATIVE (NEGATIVE); URINE SPECIFIC GRAVITY 1.023; UROBILINOGEN,URINE NEGATIVE mg/dL (<2.0)
[2016-05-26 09:27] LABS: URINE BARBITURATES SCREEN NEGATIVE; URINE METHADONE SCREEN NEGATIVE; URINE OPIATES LOW NEGATIVE
[2016-05-26 09:28] LABS: URINE PHENCYCLIDINE SCREEN NEGATIVE
[2016-05-26] MEDS ORDERED: ONDANSETRON HCL INJ/PF 4 MG/2 ML SDV IV ONE (09:31)
--- NOTE | 2016-05-26 09:37 | ER Document Report ---
ED General - General Chief Complaint: High Blood Sugar Stated Complaint: BLOOD SUGAR PROBLEMS TRAVEL OUTSIDE OF THE [place] IN LAST 30 DAYS: No - HPI Patient complains to provider of: elevated blood sugars Notes: Patient is very well-known to this facility multiple admissions of DKA. Patient was seen last night was found not to be in DKA was hydrated patient on home ate a chicken salad's morning was feeling worse therefore didn't check his blood sugars read high patient states he was compliant with his insulin however came to the ER for further evaluation. Initial evaluation patient somnolent are essentially very tachycardic. Patient's presentation is consistent with another DKA exacerbation. Denies fevers chills nausea vomiting abdominal pain at this time. - Related Data Allergies/Adverse Reactions: No Known Allergies Allergy (Verified 05/25/16 14:31) Home Medications: Current Home Medications Citalopram Hydrobromide [Celexa 40 mg Tablet] 40 mg PO DAILY 05/26/16 [History] Insulin Aspart [Novolog Flexpen] 0 units SQ DAILYP PRN 05/26/16 [History] Insulin Glargine,Hum.rec.anlog [Lantus Solostar] 40 units SQ PCLUNCH 05/26/16 [ History] Past Medical History - Social History Smoking Status: Unknown if Ever Smoked Family History: DM, Hypertension - Past Medical History Cardiac Medical History: Reports: Hx Hypercholesterolemia Endocrine Medical History: Reports: Hx Diabetes Mellitus Type 1 Renal/ Medical History: Denies: Hx Peritoneal Dialysis Psychiatric Medical History: Reports: Hx Depression Past Surgical History: Reports: Hx Appendectomy - Immunizations Hx Diphtheria, Pertussis, Tetanus Vaccination: Yes Hx Pneumococcal Vaccination: 03/17/15 Review of Systems - Review of Systems Constitutional: Other - DKA EENT: No symptoms reported Cardiovascular: No symptoms reported Respiratory: No symptoms reported Gastrointestinal: No symptoms reported Genitourinary: No symptoms reported Male Genitourinary: No symptoms reported Musculoskeletal: No symptoms reported Skin: No symptoms reported Hematologic/Lymphatic: No symptoms reported Neurological/Psychological: No symptoms reported Physical Exam - Vital signs Vitals: Temp Pulse BP Pulse Ox 97.5 F 125 H 121/77 100 05/26/16 06:59 05/26/16 06:59 05/26/16 06:59 05/26/16 06:59 Interpretation: Tachypneic - General General appearance: Appears well, Alert - HEENT Head: Normocephalic, Atraumatic Eyes: Normal Pupils: PERRL - Respiratory Respiratory status: No respiratory distress Chest status: Nontender Breath sounds: Normal Chest palpation: Normal - Cardiovascular Rhythm: Tachycardia Heart sounds: Normal auscultation Murmur: No - Abdominal Inspection: Normal Distension: No distension Bowel sounds: Normal Tenderness: Nontender Organomegaly: No organomegaly - Back Back: Normal, Nontender - Extremities General upper extremity: Normal inspection, Nontender, Normal color, Normal ROM , Normal temperature General lower extremity: Normal inspection, Nontender, Normal color, Normal ROM , Normal temperature, Normal weight bearing. No: Bernarda's sign - Neurological Neuro grossly intact: Yes Cognition: Normal Orientation: AAOx4 [place] Coma Scale Eye Opening: Spontaneous [place] Coma Scale Verbal: Oriented [place] Coma Scale Motor: Obeys Commands [place] Coma Scale Total: 15 Speech: Normal Motor strength normal: LUE, RUE, LLE, RLE Sensory: Normal - Psychological Associated symptoms: Normal affect, Normal mood - Skin Skin Temperature: Warm Skin Moisture: Dry Skin Color: Normal Course - Re-evaluation Re-evalutation: 05/26/16 13:50 Patient's laboratory studies are consistent with DKA. Patient was given IV fluids and started on insulin drip. Patient's case was referred to hospitals for further evaluation. - Vital Signs Vital signs: Temp Pulse Resp BP Pulse Ox 98.4 F 125 H 14 128/54 H 100 05/26/16 12:51 05/26/16 06:59 05/26/16 12:01 05/26/16 12:00 05/26/16 12:01 - Laboratory Result Diagrams: 05/26/16 07:21 05/26/16 07:21 Laboratory results interpreted by me: 05/26/16 05/26/16 05/26/16 07:21 07:21 07:21 WBC 18.7 H D Absolute Neutrophils 12.0 H Absolute Lymphocytes 5.6 H VBG pH 7.15 L* VBG pCO2 27.6 L VBG HCO3 9.4 L Chloride 95 L Carbon Dioxide 10 L* D Anion Gap 33 H Glucose 617 H* POC Glucose Alkaline Phosphatase 136 H Urine Glucose (UA) Urine Ketones 05/26/16 05/26/16 08:43 09:42 WBC Absolute Neutrophils Absolute Lymphocytes VBG pH VBG pCO2 VBG HCO3 Chloride Carbon Dioxide Anion Gap Glucose POC Glucose 474 H* Alkaline Phosphatase Urine Glucose (UA) >=500 H Urine Ketones 80 H Critical Care Note - Critical Care Note Total time excluding time spent on procedures (mins): 35 Comments: Multiple evaluations for DKA Discharge - Discharge Clinical Impression: Noncompliance Diabetic ketoacidosis Qualifiers: Diabetes mellitus type: type 1 Diabetes mellitus complication detail: without coma Qualified Code(s): E10.10 - Type 1 diabetes mellitus with ketoacidosis without coma Condition: Good Disposition: ADMITTED INPATIENT Admitting Provider: [facility] Unit Admitted: [facility]
[2016-05-26] MEDS ORDERED: INSULIN REG, HUMAN 100 UNIT/ML 3 ML VIAL (PYX) ONE (09:40)
[2016-05-26] MEDS ORDERED: ACETAMINOPHEN 325 MG TABLET PO PRN (10:30)
[2016-05-26] MEDS ORDERED: NORMAL SALINE 1000 ML 1,000 ML IV SCH (10:30)
[2016-05-26] MEDS ORDERED: ONDANSETRON HCL INJ/PF 4 MG/2 ML SDV IV PRN (10:35)
[2016-05-26] MEDS ORDERED: DEXTROSE 5%-NORMAL SALINE 1,000 ML IV PRN (15:54)
[2016-05-26 15:59] LABS: ANION GAP 16 (5-19); BLOOD UREA NITROGEN 8 mg/dL (7-20); CALCIUM 8.2 mg/dL (8.4-10.2); CARBON DIOXIDE 12 mmol/L (22-30); CHLORIDE 112 mmol/L (98-107); CREATININE RESULT 0.62 mg/dL (0.52-1.25); GLUCOSE 138 mg/dL (75-110); POTASSIUM 4.5 mmol/L (3.6-5.0); SODIUM 139.6 mmol/L (137-145)
--- NOTE | 2016-05-26 18:39 | PDOC H&P ---
History of Present Illness Admission Date/PCP: 05/26/16 10:30 Patient complains of: Weakness and high sugars History of Present Illness: ACE POSADA is a 21 year old male with type I diabetes well known to the hospitalist service presents again with tachypnea, nausea and vomiting and elevated blood sugars. He is known to be noncompliant with his insulin regimen and has been admitted to the hospital several times in DKA. He reports using his Lantus just yesterday. He reports being in his usual state of health. He denies fever, chills, diarrhea, melena, hematochezia, sore throat, tooth pain, sinus pain or drainage, flulike symptoms or illness. Evaluation in the emergency department shows him to once again be in DKA with blood sugars of 600 and a bicarbonate of only 10 pH of 7.1 so we were asked to admit him for further evaluation and management. Past Medical History Cardiac Medical History: Reports: Hyperlipidema Endocrine Medical History: Reports: Diabetes Mellitus Type 1 Psychiatric Medical History: Reports: Depression Past Surgical History Past Surgical History: Reports: Appendectomy Social History Smoking Status: Unknown if Ever Smoked Number of Years Smokin Frequency of Alcohol Use: Occasional Hx Recreational Drug Use: No Drugs: None Hx Prescription Drug Abuse: No - Advance Directive Resuscitation Status: Full Code Family History Family History: DM, Hypertension Parental Family History Reviewed: Yes Children Family History Reviewed: Yes Sibling(s) Family History Reviewed.: Yes Medication/Allergy Home Medications: Citalopram Hydrobromide [Celexa 40 mg Tablet] 40 mg PO DAILY 05/26/16 Insulin Aspart [Novolog Flexpen] 0 units SQ DAILYP PRN 05/26/16 Insulin Glargine,Hum.rec.anlog [Lantus Solostar] 40 units SQ PCLUNCH 05/26/16 Allergies/Adverse Reactions: No Known Allergies Allergy (Verified 05/25/16 14:31) Review of Systems Constitutional: ABSENT: chills, fever(s), headache(s), weight gain, weight loss Eyes: ABSENT: visual disturbances Ears: ABSENT: hearing changes Cardiovascular: ABSENT: chest pain, dyspnea on exertion, edema, orthropnea, palpitations Respiratory: ABSENT: cough, hemoptysis Gastrointestinal: PRESENT: nausea, vomiting. ABSENT: abdominal pain, constipation, diarrhea, hematemesis, hematochezia Genitourinary: ABSENT: dysuria, hematuria Musculoskeletal: ABSENT: joint swelling Integumentary: ABSENT: rash, wounds Neurological: ABSENT: abnormal gait, abnormal speech, confusion, dizziness, focal weakness, syncope Psychiatric: ABSENT: anxiety, depression, homidical ideation, suicidal ideation Endocrine: ABSENT: cold intolerance, heat intolerance, polydipsia, polyuria Hematologic/Lymphatic: ABSENT: easy bleeding, easy bruising Physical Exam Vital Signs: Temp Pulse Resp BP Pulse Ox 97.9 F 110 H 16 114/48 L 97 05/26/16 15:35 05/26/16 15:35 05/26/16 15:35 05/26/16 14:00 05/26/16 15:35 Intake & Output 05/25/16 05/26/16 05/27/16 05:59 06:59 06:59 Intake Total 4480 Output Total 850 Balance 3630 PHYSICAL EXAM GENERAL: NAD; well developed, well nourished; no obese; alert and oriented to person, place, time, situation HEENT: normocephalic, atraumatic; EOMI, PERRLA, no conjunctival injection, no scleral icterus; oral mucosa moist, neck supple, no LAD, normal ROM RESPIRATORY: POS accessory muscle use, increased WOB, good air entry bilaterally; no wheezes, rales, rhonchi; no inspiratory crackles CARDIO: no JVD; RRR; no systolic murmur; tachycardia VASCULAR: no carotid bruit; no abdominal bruit; no pallor; 2+ radial, DP pulse ; normal capillary refill GI: soft; nondistended; normal bowel sounds; no hepato spleno megaly; no rebound, rigidity, guarding NEURO: normal patella reflexes; normal sensation; normal motor function; MSK: 5/5 strength; normal ROM hips; ambulatory without assistance; no tenderness EXTREMITIES: no calf tender; no palpable cords in calf; no clubbing, cyanosis , pedal edema PSYCH: normal affect, normal mood SKIN: warm; moist; no petechiae; no telengectasias; no jaundice; no rash Results Laboratory Results: 05/26/16 15:30 Sodium 139.6 Potassium 4.5 Chloride 112 H Carbon Dioxide 12 L Anion Gap 16 BUN 8 Creatinine 0.62 Est GFR ( Amer) > 60 Est GFR (Non-Af Amer) > 60 Glucose 138 H Calcium 8.2 L Labs reviewed, initial pH 7.1 and bicarbonate of only 10 Assessment & Plan - Diagnosis (1) Diabetic ketoacidosis Qualifiers: Diabetes mellitus type: type 1 Diabetes mellitus complication detail: without coma Qualified Code(s): E10.10 - Type 1 diabetes mellitus with ketoacidosis without coma (2) Noncompliance Is this a current diagnosis for this admission?: YesPlan: Admitted to the [facility] for insulin drip and aggressive fluid resuscitation. Will check chem sevens every 4 hours until his anion gap closes. We will change him over to D5 containing fluids once his blood sugars have improved but maintain the drip until his gap closes and he is tolerating a diet. He usually turns around within 24-36 hours. - Time Time Spent: 50 to 70 Minutes Medications reviewed and adjusted accordingly: Yes Anticipated discharge: Home Within: within 24 hours - Inpatient Certification Medical Necessity: Significant Comorbidiites Make Outpatient Treatment Too Risky , Need For IV Fluids, Risk of Complication if Not Cared For in Hospital
[2016-05-26 19:01] LABS: ANION GAP 12 (5-19); BLOOD UREA NITROGEN 7 mg/dL (7-20); CARBON DIOXIDE 15 mmol/L (22-30); CHLORIDE 110 mmol/L (98-107); CREATININE RESULT 0.59 mg/dL (0.52-1.25); GLUCOSE 222 mg/dL (75-110); POTASSIUM 4.2 mmol/L (3.6-5.0)
[2016-05-26] MEDS: PANTOPRAZOLE SODIUM 40 MG VIAL IV SCH (23:07)
[2016-05-27 00:07] LABS: ANION GAP 9 (5-19); BLOOD UREA NITROGEN 6 mg/dL (7-20); CALCIUM 8.7 mg/dL (8.4-10.2); CARBON DIOXIDE 20 mmol/L (22-30); CHLORIDE 110 mmol/L (98-107); CREATININE RESULT 0.49 mg/dL (0.52-1.25); GLUCOSE 70 mg/dL (75-110); POTASSIUM 3.6 mmol/L (3.6-5.0); SODIUM 139.1 mmol/L (137-145)
[2016-05-27] MEDS: POTASSI CL 20 MEQ/D5NS 1L 1,000 ML IV PRN ×3 (00:42→16:04)
[2016-05-27] MEDS ORDERED: POTASSIUM CHLORIDE 20 MEQ/15 ML UDCUP PO ONE ×2 (00:45→06:00)
[2016-05-27 05:21] LABS: ANION GAP 9 (5-19); BLOOD UREA NITROGEN 5 mg/dL (7-20); CALCIUM 8.3 mg/dL (8.4-10.2); CARBON DIOXIDE 19 mmol/L (22-30); CHLORIDE 112 mmol/L (98-107); CREATININE RESULT 0.52 mg/dL (0.52-1.25); GLUCOSE 58 mg/dL (75-110); POTASSIUM 3.6 mmol/L (3.6-5.0); SODIUM 139.9 mmol/L (137-145)
[2016-05-27] MEDS: ENOXAPARIN SODIUM INJ 40 MG/0.4 ML DISP.SYRIN SUBCUT SCH (08:44)
[2016-05-27 09:07] LABS: MEAN CORPUSCULAR VOLUME 91 fl (80-97)
[2016-05-27 09:16] LABS: ABSOLUTE LYMPHOCYTES (AUTO) 2.5 10^3/uL (0.5-4.7); ABSOLUTE MONOCYTES (AUTO) 0.5 10^3/uL (0.1-1.4); ABSOLUTE NEUT (AUTO) 5.7 10^3/uL (1.7-8.2); BASOPHILS % (AUTO) 0.5 % (0-2); EOSINOPHILS % (AUTO) 0.5 % (0-6); HEMATOCRIT 35.6 % (37.9-51.0); HGB HCT DIFFERENCE 0.7; LYMPHOCYTES % (AUTO) 28.5 % (13-45); MEAN CORPUSCULAR HEMOGLOBIN 30.8 pg (27.0-33.4); MEAN CORPUSCULAR HGB CONC 33.9 g/dL (32.0-36.0); MONOCYTES % (AUTO) 6.1 % (3-13); RED BLOOD COUNT 3.92 10^6/uL (4.35-5.55); SEGMENTED NEUTROPHILS % (AUTO) 64.4 % (42-78); WHITE BLOOD COUNT 8.9 10^3/uL (4.0-10.5)
[2016-05-27 09:20] LABS: HEMOGLOBIN 12.1 g/dL (13.5-17.0)
[2016-05-27 09:37] LABS: ANION GAP 11 (5-19); BLOOD UREA NITROGEN 4 mg/dL (7-20); CALCIUM 8.2 mg/dL (8.4-10.2); CARBON DIOXIDE 15 mmol/L (22-30); CHLORIDE 108 mmol/L (98-107); CREATININE RESULT 0.53 mg/dL (0.52-1.25); GLUCOSE 268 mg/dL (75-110); MAGNESIUM 1.7 mg/dL (1.6-2.3); PHOSPHORUS 1.8 mg/dL (2.5-4.5); POTASSIUM 4.4 mmol/L (3.6-5.0)
[2016-05-27] MEDS: PANTOPRAZOLE SODIUM 40 MG VIAL IV SCH ×2 (10:06→21:39)
[2016-05-27] MEDS ORDERED: DEXTROSE 40% GEL 15 GM TUBE PO PRN (10:49)
[2016-05-27] MEDS: INSULIN LISPRO 100 UNIT/ML 3 ML VIAL SUBCUT PRN ×3 (12:16→21:56)
[2016-05-27] MEDS ORDERED: INSULIN GLARGINE,HUM.REC.ANLOG 300 UNIT/3 ML INSULN.PEN SUBCUT ONE (12:30)
[2016-05-27 13:13] LABS: ANION GAP 8 (5-19); BLOOD UREA NITROGEN 4 mg/dL (7-20); CALCIUM 8.8 mg/dL (8.4-10.2); CARBON DIOXIDE 19 mmol/L (22-30); CHLORIDE 108 mmol/L (98-107); CREATININE RESULT 0.53 mg/dL (0.52-1.25); GLUCOSE 275 mg/dL (75-110); POTASSIUM 4.5 mmol/L (3.6-5.0); SODIUM 135.2 mmol/L (137-145)
--- NOTE | 2016-05-27 16:04 | PDOC PROGRESS REPORT ---
Subjective Progress Note for:: 05/27/16 Subjective:: Reason for visit: Follow-up [facility] Hospital course:ACE POSADA is a 21 year old male with type I diabetes well known to the hospitalist service presents again with tachypnea, nausea and vomiting and elevated blood sugars. He is known to be noncompliant with his insulin regimen and has been admitted to the hospital several times in DKA. He reports using his Lantus just yesterday. He reports being in his usual state of health. He denies fever, chills, diarrhea, melena, hematochezia, sore throat , tooth pain, sinus pain or drainage, flulike symptoms or illness. Evaluation in the emergency department shows him to once again be in DKA with blood sugars of 600 and a bicarbonate of only 10 pH of 7.1 so we were asked to admit him for further evaluation and management. He was admitted and placed on the usual protocol and had rapid closure of his AG and improvement in his blood sugars; however he failed an attempt to transition off the insulin gtt and onto basal/bolus by slipping back into acidosis requiring him to go back on insulin gtt. he is once again stable but clearly very labile with his diabetes. Physical Exam Vital Signs: Temp Pulse Resp BP Pulse Ox 97.3 F 94 19 104/39 L 100 05/27/16 11:54 05/27/16 14:00 05/27/16 11:54 05/27/16 11:54 05/27/16 11:54 Intake & Output 05/26/16 05/27/16 05/28/16 06:59 06:59 06:59 Intake Total 5894 474 Output Total 850 2000 Balance 6466 -2786 Weight 73.4 kg PHYSICAL EXAM GENERAL: NAD; well developed, well nourished; no obese; alert and oriented to person, place, time, situation HEENT: normocephalic, atraumatic; EOMI, PERRLA, no conjunctival injection, no scleral icterus; oral mucosa moist, neck supple, no LAD, normal ROM RESPIRATORY: POS accessory muscle use, increased WOB, good air entry bilaterally; no wheezes, rales, rhonchi; no inspiratory crackles CARDIO: no JVD; RRR; no systolic murmur; tachycardia VASCULAR: no carotid bruit; no abdominal bruit; no pallor; 2+ radial, DP pulse ; normal capillary refill GI: soft; nondistended; normal bowel sounds; no hepato spleno megaly; no rebound, rigidity, guarding NEURO: normal patella reflexes; normal sensation; normal motor function; MSK: 5/5 strength; normal ROM hips; ambulatory without assistance; no tenderness EXTREMITIES: no calf tender; no palpable cords in calf; no clubbing, cyanosis , pedal edema PSYCH: normal affect, normal mood SKIN: warm; moist; no petechiae; no telengectasias; no jaundice; no rash Results Laboratory Results: 05/27/16 08:47 05/27/16 12:09 05/26/16 05/26/16 05/26/16 15:30 18:10 23:47 WBC RBC Hgb Hct MCV MCH MCHC RDW Plt Count Seg Neutrophils % Lymphocytes % Monocytes % Eosinophils % Basophils % Absolute Neutrophils Absolute Lymphocytes Absolute Monocytes Absolute Eosinophils Absolute Basophils Sodium 139.6 137.0 139.1 Potassium 4.5 4.2 3.6 Chloride 112 H 110 H 110 H Carbon Dioxide 12 L 15 L 20 L Anion Gap 16 12 9 BUN 8 7 6 L Creatinine 0.62 0.59 0.49 L Est GFR ( Amer) > 60 > 60 > 60 Est GFR (Non-Af Amer) > 60 > 60 > 60 Glucose 138 H 222 H 70 L Calcium 8.2 L 8.0 L 8.7 Phosphorus Magnesium 05/27/16 05/27/16 05/27/16 04:06 08:47 08:47 WBC 8.9 RBC 3.92 L Hgb 12.1 L D Hct 35.6 L MCV 91 MCH 30.8 MCHC 33.9 RDW 13.0 Plt Count 242 Seg Neutrophils % 64.4 Lymphocytes % 28.5 Monocytes % 6.1 Eosinophils % 0.5 Basophils % 0.5 Absolute Neutrophils 5.7 Absolute Lymphocytes 2.5 Absolute Monocytes 0.5 Absolute Eosinophils 0.0 Absolute Basophils 0.0 Sodium 139.9 134.0 L Potassium 3.6 4.4 Chloride 112 H 108 H Carbon Dioxide 19 L 15 L Anion Gap 9 11 BUN 5 L 4 L Creatinine 0.52 0.53 Est GFR ( Amer) > 60 > 60 Est GFR (Non-Af Amer) > 60 > 60 Glucose 58 L 268 H Calcium 8.3 L 8.2 L Phosphorus 1.8 L Magnesium 1.7 03/13/17 12:09 WBC RBC Hgb Hct MCV MCH MCHC RDW Plt Count Seg Neutrophils % Lymphocytes % Monocytes % Eosinophils % Basophils % Absolute Neutrophils Absolute Lymphocytes Absolute Monocytes Absolute Eosinophils Absolute Basophils Sodium 135.2 L Potassium 4.5 Chloride 108 H Carbon Dioxide 19 L Anion Gap 8 BUN 4 L Creatinine 0.53 Est GFR ( Amer) > 60 Est GFR (Non-Af Amer) > 60 Glucose 275 H Calcium 8.8 Phosphorus Magnesium Assessment & Plan - Diagnosis (1) Diabetic ketoacidosis Qualifiers: Diabetes mellitus type: type 1 Diabetes mellitus complication detail: without coma Qualified Code(s): E10.10 - Type 1 diabetes mellitus with ketoacidosis without coma Is this a current diagnosis for this admission?: YesPlan: will try again to transition to basal/bolus regimen and monitor for recurrence. hopefully will be stable for discharge in the morning. (2) Noncompliance Is this a current diagnosis for this admission?: Yes - Time Time Spent with patient: 25-34 minutes Anticipated discharge: Home Within: within 24 hours
[2016-05-27] MEDS: NORMAL SALINE 1000 ML 1,000 ML IV PRN (21:39)
[2016-05-28 04:44] LABS: ANION GAP 7 (5-19); BLOOD UREA NITROGEN 6 mg/dL (7-20); CALCIUM 8.9 mg/dL (8.4-10.2); CARBON DIOXIDE 26 mmol/L (22-30); CHLORIDE 107 mmol/L (98-107); CREATININE RESULT 0.49 mg/dL (0.52-1.25); GLUCOSE 147 mg/dL (75-110); MAGNESIUM 1.5 mg/dL (1.6-2.3); PHOSPHORUS 2.4 mg/dL (2.5-4.5); SODIUM 139.8 mmol/L (137-145)
[2016-05-28 04:59] LABS: POTASSIUM 3.2 mmol/L (3.6-5.0)
[2016-05-28] MEDS: NORMAL SALINE 1000 ML 1,000 ML IV PRN (06:11)
[2016-05-28] MEDS: ENOXAPARIN SODIUM INJ 40 MG/0.4 ML DISP.SYRIN SUBCUT SCH (08:20)
[2016-05-28] MEDS: PANTOPRAZOLE SODIUM 40 MG VIAL IV SCH ×2 (11:01→21:26)
[2016-05-28] MEDS: INSULIN GLARGINE,HUM.REC.ANLOG 300 UNIT/3 ML INSULN.PEN SUBCUT SCH (11:03)
[2016-05-28] MEDS: INSULIN LISPRO 100 UNIT/ML 3 ML VIAL SUBCUT PRN ×3 (11:04→21:36)
[2016-05-28] MEDS ORDERED: FUROSEMIDE INJ/PF 20 MG/2 ML SDV IV ONE (13:00)
[2016-05-28] MEDS ORDERED: MAGNESIUM SULFATE/D5W 100 ML IV ONE (13:00)
--- NOTE | 2016-05-28 13:06 | PDOC PROGRESS REPORT ---
Subjective Progress Note for:: 05/28/16 Subjective:: Patient is feeling well He has no shortness of breath no chest pain no nausea no vomiting ; his blood sugars have been better controlled He feels fluid overloaded and his face is swollen as well as his extremities and his neck His potassium and magnesium are reported below and are being replaced Physical Exam Vital Signs: Temp Pulse Resp BP Pulse Ox 97.6 F 68 16 127/67 H 100 05/28/16 11:08 05/28/16 11:08 05/28/16 11:08 05/28/16 11:08 05/28/16 11:08 Intake & Output 05/27/16 05/28/16 05/29/16 00:59 00:59 00:59 Intake Total 5072 3280 Output Total 2000 Balance 3072 3280 Weight 73.4 kg 74.4 kg General appearance: PRESENT: no acute distress, well-developed, well-nourished Head exam: PRESENT: atraumatic, normocephalic Eye exam: PRESENT: conjunctiva pink, EOMI, PERRLA. ABSENT: scleral icterus Ear exam: PRESENT: normal external ear exam Mouth exam: PRESENT: moist, tongue midline Neck exam: ABSENT: carotid bruit, JVD, lymphadenopathy, thyromegaly Respiratory exam: PRESENT: clear to auscultation saul. ABSENT: rales, rhonchi, wheezes Cardiovascular exam: PRESENT: RRR. ABSENT: diastolic murmur, rubs, systolic murmur Pulses: PRESENT: normal dorsalis pedis pul Vascular exam: PRESENT: normal capillary refill GI/Abdominal exam: PRESENT: normal bowel sounds, soft. ABSENT: distended, guarding, mass, organolmegaly, rebound, tenderness Rectal exam: PRESENT: deferred Extremities exam: PRESENT: full ROM, other - Mild edema upper and lower extremities Mild periorbital edema. ABSENT: calf tenderness, clubbing, pedal edema Neurological exam: PRESENT: alert, awake, oriented to person, oriented to place , oriented to time, oriented to situation, CN II-XII grossly intact. ABSENT: motor sensory deficit Psychiatric exam: PRESENT: appropriate affect, normal mood. ABSENT: homicidal ideation, suicidal ideation Skin exam: PRESENT: dry, intact, warm. ABSENT: cyanosis, rash Results Laboratory Results: 05/27/16 08:47 05/28/16 03:58 05/27/16 05/28/16 12:09 03:58 Sodium 135.2 L 139.8 Potassium 4.5 3.2 L D Chloride 108 H 107 Carbon Dioxide 19 L 26 Anion Gap 8 7 BUN 4 L 6 L Creatinine 0.53 0.49 L Est GFR ( Amer) > 60 > 60 Est GFR (Non-Af Amer) > 60 > 60 Glucose 275 H 147 H Calcium 8.8 8.9 Phosphorus 2.4 L Magnesium 1.5 L 05/26/16 11:50 Nasophary (Mrsa Only) MRSA Surveillance Culture - Final NO MRSA RECOVERED Assessment & Plan - Diagnosis (1) Electrolyte imbalance Is this a current diagnosis for this admission?: YesPlan: Replace potassium and magnesium Recheck later (2) DKA (diabetic ketoacidoses) Qualifiers: Diabetes mellitus type: type 1 Diabetes mellitus complication detail: without coma Qualified Code(s): E10.10 - Type 1 diabetes mellitus with ketoacidosis without coma Is this a current diagnosis for this admission?: Yes (3) IDDM (insulin dependent diabetes mellitus) Is this a current diagnosis for this admission?: YesPlan: resume prior insulin management - Time Time Spent with patient: We'll keep the patient another 24 hours to make sure that his electrolytes are stable Diurese with 20 mg IV Lasix Discharge in a.m. if stable Transferred to medical unit Time Spent with patient: 25-34 minutes
[2016-05-28] MEDS: POTASSI CL 20 MEQ/50 ML RIDER 50 ML IV SCH ×2 (14:10→15:27)
[2016-05-28 18:34] LABS: ANION GAP 11 (5-19); BLOOD UREA NITROGEN 7 mg/dL (7-20); CALCIUM 9.2 mg/dL (8.4-10.2); CARBON DIOXIDE 27 mmol/L (22-30); CHLORIDE 103 mmol/L (98-107); CREATININE RESULT 0.54 mg/dL (0.52-1.25); GLUCOSE 160 mg/dL (75-110); MAGNESIUM 1.6 mg/dL (1.6-2.3); POTASSIUM 3.7 mmol/L (3.6-5.0); SODIUM 140.5 mmol/L (137-145)
[2016-05-29 05:21] LABS: ANION GAP 6 (5-19); BLOOD UREA NITROGEN 11 mg/dL (7-20); CALCIUM 9.6 mg/dL (8.4-10.2); CARBON DIOXIDE 31 mmol/L (22-30); CHLORIDE 104 mmol/L (98-107); CREATININE RESULT 0.52 mg/dL (0.52-1.25); GLUCOSE 180 mg/dL (75-110); MAGNESIUM 1.7 mg/dL (1.6-2.3); POTASSIUM 3.6 mmol/L (3.6-5.0); SODIUM 141.3 mmol/L (137-145)
[2016-05-29] MEDS: ENOXAPARIN SODIUM INJ 40 MG/0.4 ML DISP.SYRIN SUBCUT SCH (08:05)
[2016-05-29] MEDS: PANTOPRAZOLE SODIUM 40 MG VIAL IV SCH (09:55)
[2016-05-29] MEDS: INSULIN GLARGINE,HUM.REC.ANLOG 300 UNIT/3 ML INSULN.PEN SUBCUT SCH (09:56)
[2016-05-29] MEDS: INSULIN LISPRO 100 UNIT/ML 3 ML VIAL SUBCUT PRN ×2 (11:49→16:46)
[2016-05-29 13:23] VITALS: BP 108/41
--- NOTE | 2016-05-31 13:21 | PDOC DISCHARGE SUMMARY ---
General - Admit/Disc Date/PCP Admission Date/Primary Care Provider: 05/26/16 10:30 Discharge Date: 05/29/16 - Discharge Diagnosis (1) Electrolyte imbalance Is this a current diagnosis for this admission?: Yes (2) DKA (diabetic ketoacidoses) Is this a current diagnosis for this admission?: Yes (3) IDDM (insulin dependent diabetes mellitus) Is this a current diagnosis for this admission?: Yes - Additional Information Resuscitation Status: Full Code Discharge Diet: Diabetic Discharge Activity: Activity As Tolerated Home Medications: Citalopram Hydrobromide [Celexa 40 mg Tablet] 40 mg PO DAILY 05/26/16 Insulin Aspart [Novolog Flexpen] 0 units SQ DAILYP PRN 05/26/16 Insulin Glargine,Hum.rec.anlog [Lantus Solostar] 40 units SQ PCLUNCH 05/26/16 History of Present Illness Patient complains of: nausea vomiting elevated bloodsugars History of Present Illness: ACE POSADA is a 21 year old male with type I diabetes well known to the hospitalist service presents again with tachypnea, nausea and vomiting and elevated blood sugars. He is known to be noncompliant with his insulin regimen and has been admitted to the hospital several times in DKA. He reports using his Lantus just yesterday. He reports being in his usual state of health. He denies fever, chills, diarrhea, melena, hematochezia, sore throat, tooth pain, sinus pain or drainage, flulike symptoms or illness. Evaluation in the emergency department shows him to once again be in DKA with blood sugars of 600 and a bicarbonate of only 10 pH of 7.1 so we were asked to admit him for further evaluation and management. Hospital Course Hospital Course: Patient was admitted with DKA likely precipitated by a viral illness DKA protocole was followed DKA resolved in 24 hours He was discharged in stable condition Physical Exam Vital Signs: Temp Pulse Resp BP Pulse Ox 97.4 F 63 16 108/41 L 99 05/29/16 13:19 05/29/16 13:19 05/29/16 13:19 05/29/16 13:19 05/29/16 13:19 Intake & Output 05/30/16 05/31/16 06/01/16 00:59 00:59 00:59 Intake Total 675 Balance 675 Weight 76.6 kg General appearance: PRESENT: no acute distress, well-developed, well-nourished Head exam: PRESENT: atraumatic, normocephalic Eye exam: PRESENT: conjunctiva pink, EOMI, PERRLA. ABSENT: scleral icterus Ear exam: PRESENT: normal external ear exam Mouth exam: PRESENT: moist, tongue midline Neck exam: ABSENT: carotid bruit, JVD, lymphadenopathy, thyromegaly Respiratory exam: PRESENT: clear to auscultation saul. ABSENT: rales, rhonchi, wheezes Cardiovascular exam: PRESENT: RRR. ABSENT: diastolic murmur, rubs, systolic murmur Pulses: PRESENT: normal dorsalis pedis pul Vascular exam: PRESENT: normal capillary refill GI/Abdominal exam: PRESENT: normal bowel sounds, soft. ABSENT: distended, guarding, mass, organolmegaly, rebound, tenderness Rectal exam: PRESENT: deferred Extremities exam: PRESENT: full ROM. ABSENT: calf tenderness, clubbing, pedal edema Neurological exam: PRESENT: alert, awake, oriented to person, oriented to place , oriented to time, oriented to situation, CN II-XII grossly intact. ABSENT: motor sensory deficit Psychiatric exam: PRESENT: appropriate affect, normal mood. ABSENT: homicidal ideation, suicidal ideation Skin exam: PRESENT: dry, intact, warm. ABSENT: cyanosis, rash Results Laboratory Results: 05/27/16 08:47 05/29/16 04:35 05/27/16 08:47 05/29/16 04:35 MCV 91 fl (80-97) 05/27/16 08:47 MCH 30.8 pg (27.0-33.4) 05/27/16 08:47 MCHC 33.9 g/dL (32.0-36.0) 05/27/16 08:47 RDW 13.0 % (11.5-14.0) 05/27/16 08:47 Seg Neutrophils % 64.4 % (42-78) 05/27/16 08:47 Lymphocytes % 28.5 % (13-45) 05/27/16 08:47 Monocytes % 6.1 % (3-13) 05/27/16 08:47 Eosinophils % 0.5 % (0-6) 05/27/16 08:47 Basophils % 0.5 % (0-2) 05/27/16 08:47 Absolute Neutrophils 5.7 10^3/uL (1.7-8.2) 05/27/16 08:47 Absolute Lymphocytes 2.5 10^3/uL (0.5-4.7) 05/27/16 08:47 Absolute Monocytes 0.5 10^3/uL (0.1-1.4) 05/27/16 08:47 Absolute Eosinophils 0.0 10^3/uL (0.0-0.6) 05/27/16 08:47 Absolute Basophils 0.0 10^3/uL (0.0-0.2) 05/27/16 08:47 VBG pH 7.15 (7.30-7.42) L* 05/26/16 07:21 VBG pCO2 27.6 mmHg (35-63) L 05/26/16 07:21 VBG HCO3 9.4 mmol/L (20-32) L 05/26/16 07:21 VBG Base Excess -17.8 mmol/L 05/26/16 07:21 Chloride 104 mmol/L (98-107) 05/29/16 04:35 Carbon Dioxide 31 mmol/L (22-30) H 05/29/16 04:35 Anion Gap 6 (5-19) 05/29/16 04:35 Est GFR ( Amer) > 60 (>60) 05/29/16 04:35 Est GFR (Non-Af Amer) > 60 (>60) 05/29/16 04:35 Glucose 180 mg/dL (75-110) H 05/29/16 04:35 Calcium 9.6 mg/dL (8.4-10.2) 05/29/16 04:35 Phosphorus 2.4 mg/dL (2.5-4.5) L 05/28/16 03:58 Magnesium 1.7 mg/dL (1.6-2.3) 05/29/16 04:35 Total Bilirubin 0.8 mg/dL (0.2-1.3) 05/26/16 07:21 AST 59 U/L (17-59) 05/26/16 07:21 ALT 27 U/L (21-72) 05/26/16 07:21 Alkaline Phosphatase 136 U/L (38-126) H 05/26/16 07:21 Total Protein 7.6 g/dL (6.3-8.2) 05/26/16 07:21 Albumin 4.8 g/dL (3.5-5.0) 05/26/16 07:21 Lipase 26.3 U/L (23-300) 05/26/16 07:21 Urine Color COLORLESS 05/26/16 08:43 Urine Appearance CLEAR 05/26/16 08:43 Urine pH 5.0 (5.0-9.0) 05/26/16 08:43 Ur Specific [place] 1.023 05/26/16 08:43 Urine Protein NEGATIVE mg/dL (NEGATIVE) 05/26/16 08:43 Urine Glucose (UA) >=500 mg/dL (NEGATIVE) H 05/26/16 08:43 Urine Ketones 80 mg/dL (NEGATIVE) H 05/26/16 08:43 Urine Blood NEGATIVE (NEGATIVE) 05/26/16 08:43 Urine Nitrite NEGATIVE (NEGATIVE) 05/26/16 08:43 Ur Leukocyte Esterase NEGATIVE (NEGATIVE) 05/26/16 08:43 Urine WBC (Auto) 0 /HPF 05/26/16 08:43 Plan Discharge Plan: patient to follow up with [facility] Time Spent: Greater than 30 Minutes
== END 2016-05-29 17:35 | disposition home or self-care (01) | DRG 639 ==
LOC: ER 06:52 → UNDOADMIN 09:47 → EH 09:47 → 3W 05-27 00:09
PROVIDERS: ADMIT Family Medicine; ATTEND Family Medicine
DX: E10.10 Type 1 diabetes mellitus with ketoacidosis without coma (principal); E78.00 Pure hypercholesterolemia, unspecified; F32.9 Major depressive disorder, single episode, unspecified; R00.0 Tachycardia, unspecified; Z79.4 Long term (current) use of insulin; Z91.19 Patient's noncompliance with other medical treatment and regimen; Z90.49 Acquired absence of other specified parts of digestive tract; Z83.3 Family history of diabetes mellitus; Z82.49 Family history of ischemic heart disease and other diseases of the circulatory system
CPT/HCPCS: 36415; 80048; 80053; 80307; 81001; 82803; 82962; 83690; 83735; 84100; 85025; 99285; J1650; J1815; J1940; J2405; J3475; J3480; J7030; S0164

== ENCOUNTER 2016-06-10 21:41 | Inpatient (IN) | payer OTHER ==
[2016-06-10] MEDS ORDERED: NORMAL SALINE 1000 ML 1,000 ML IV ONE (21:53)
--- NOTE | 2016-06-10 21:54 | ER Document Report ---
ED Medical Screen (RME) - General Stated Complaint: NAUSEA,VOMITING,DIARRHEA Mode of Arrival: Ambulatory Information source: Patient Notes: Patient presents to the emergency department with complaints of diarrhea nausea stomach cramps. History of DKA. Reports his last Accu-Chek read high. Patient has history of type I diabetes. I have greeted and performed a rapid initial assessment of this patient. A comprehensive ED assessment and evaluation of the patient, analysis of test results and completion of the medical decision making process will be conducted by additional ED providers. TRAVEL OUTSIDE OF THE [place] IN LAST 30 DAYS: No - Related Data Allergies/Adverse Reactions: No Known Allergies Allergy (Verified 05/25/16 14:31) Past Medical History - Past Medical History Cardiac Medical History: Reports: Hx Hypercholesterolemia Endocrine Medical History: Reports: Hx Diabetes Mellitus Type 1 Renal/ Medical History: Denies: Hx Peritoneal Dialysis Psychiatric Medical History: Reports: Hx Depression Past Surgical History: Reports: Hx Appendectomy - Immunizations Hx Diphtheria, Pertussis, Tetanus Vaccination: Yes
[2016-06-10 23:43] LABS: ABSOLUTE LYMPHOCYTES (AUTO) 2.5 10^3/uL (0.5-4.7); ABSOLUTE MONOCYTES (AUTO) 1.3 10^3/uL (0.1-1.4); ABSOLUTE NEUT (AUTO) 15.5 10^3/uL (1.7-8.2); BASOPHILS % (AUTO) 0.1 % (0-2); HEMATOCRIT 49.6 % (37.9-51.0); HEMOGLOBIN 16.2 g/dL (13.5-17.0); MEAN CORPUSCULAR HEMOGLOBIN 30.9 pg (27.0-33.4); MEAN CORPUSCULAR HGB CONC 32.7 g/dL (32.0-36.0); MEAN CORPUSCULAR VOLUME 94 fl (80-97); MONOCYTES % (AUTO) 6.8 % (3-13); RED BLOOD COUNT 5.26 10^6/uL (4.35-5.55); RED CELL DISTRIBUTION WIDTH 13.1 % (11.5-14.0); SEGMENTED NEUTROPHILS % (AUTO) 80.1 % (42-78); WHITE BLOOD COUNT 19.4 10^3/uL (4.0-10.5)
[2016-06-10 23:54] LABS: APPEARANCE,URINE CLEAR; BILIRUBIN,URINE NEGATIVE (NEGATIVE); GLUCOSE, URINE >=500 mg/dL (NEGATIVE); KETONES,URINE 80 mg/dL (NEGATIVE); LEUKOCYTE ESTERASE,URINE NEGATIVE (NEGATIVE); NITRITE,URINE NEGATIVE (NEGATIVE); PROTEIN,URINE NEGATIVE (NEGATIVE); URINE SPECIFIC GRAVITY 1.026; UROBILINOGEN,URINE NEGATIVE mg/dL (<2.0)
[2016-06-10] MEDS ORDERED: RINGERS SOLUTION,LACTATED 1,000 ML IV ONE (23:57)
[2016-06-10 23:58] LABS: ALANINE AMINOTRANSFERASE 39 U/L (21-72); ALKALINE PHOSPHATASE 163 U/L (38-126); ASPARTATE AMINO TRANSFERASE 29 U/L (17-59); BILIRUBIN,DIRECT 0.4 mg/dL (0.0-0.4); BILIRUBIN,TOTAL 0.7 mg/dL (0.2-1.3); BLOOD UREA NITROGEN 17 mg/dL (7-20); CALCIUM 10.5 mg/dL (8.4-10.2); CHLORIDE 93 mmol/L (98-107); CREATININE RESULT 0.94 mg/dL (0.52-1.25); POTASSIUM 5.6 mmol/L (3.6-5.0); SODIUM 138.9 mmol/L (137-145); TOTAL PROTEIN 7.8 g/dL (6.3-8.2)
[2016-06-11] MEDS ORDERED: INSULIN REG, HUMAN 100 UNIT/ML 3 ML VIAL (PYX) SUBCUT ONE (00:13)
--- NOTE | 2016-06-11 00:13 | ER Document Report ---
ED Blood Sugar Problem - General Mode of Arrival: Ambulatory Information source: Patient, Parent TRAVEL OUTSIDE OF THE [place] IN LAST 30 DAYS: No - HPI Patient complains to provider of: Hyperglycemia, vomiting, and diarrhea Onset: This evening Associated symptoms: Other - See HPI <JERSEY AVITIA - Last Filed: 06/11/16 01:15> <CHARISSETRINITY MARIE MORENITA - Last Filed: 06/11/16 06:43> - General Chief Complaint: High Blood Sugar Stated Complaint: NAUSEA,VOMITING,DIARRHEA Notes: 21 year old male with history of Type I Diabetes Mellitus presents to the ED complaining of vomiting, diarrhea, and diffuse lower abdominal pain that started earlier this evening. Patient reports that he last had abdominal pain 2 days ago. Patient reports that he is regularly checking his blood sugar at home and taking insulin as needed. Patient states that his blood sugar was too high to be read this morning. Patient took 10 units of Novolog today. Patient denies being nauseous upon examination. Patient denies recent travel or making poor food choices. Patient's mother states that the patient is noncompliant with his medication and was last seen in the ED 2 weeks ago. (JERSEY AVITIA) - Related Data Allergies/Adverse Reactions: No Known Allergies Allergy (Verified 05/25/16 14:31) Past Medical History - General Information source: Patient - Social History Smoking Status: Unknown if Ever Smoked Family History: DM, Hypertension - Past Medical History Cardiac Medical History: Reports: Hx Hypercholesterolemia Endocrine Medical History: Reports: Hx Diabetes Mellitus Type 1 Renal/ Medical History: Denies: Hx Peritoneal Dialysis Psychiatric Medical History: Reports: Hx Depression Past Surgical History: Reports: Hx Appendectomy - Immunizations Hx Diphtheria, Pertussis, Tetanus Vaccination: Yes Hx Pneumococcal Vaccination: 03/17/15 <JERSEY AVITIA - Last Filed: 06/11/16 01:15> Review of Systems - Review of Systems Constitutional: See HPI EENT: No symptoms reported Cardiovascular: No symptoms reported Respiratory: No symptoms reported Gastrointestinal: See HPI, Abdominal pain - diffuse lower abdominal, Diarrhea, Vomiting Genitourinary: No symptoms reported Male Genitourinary: No symptoms reported Musculoskeletal: No symptoms reported Skin: No symptoms reported Hematologic/Lymphatic: No symptoms reported Neurological/Psychological: No symptoms reported -: Yes All other systems reviewed and negative <JERSEY AVITIA - Last Filed: 06/11/16 01:15> Physical Exam - General General appearance: Other - Drowsy but arousable In distress: None - HEENT Head: Normocephalic, Atraumatic Eyes: Normal Extraocular movements intact: Yes Pupils: PERRL Mucous membranes: Dry - Respiratory Respiratory status: No respiratory distress Breath sounds: Normal - Cardiovascular Rhythm: Regular Heart sounds: Normal auscultation - Abdominal Inspection: Normal Tenderness: Tender - mild epigastric tenderness to palpation. No: Guarding, Rebound - Back Back: Normal - Extremities General upper extremity: Normal inspection, Normal ROM General lower extremity: Normal inspection, Normal ROM - Neurological Neuro grossly intact: Yes Cognition: Normal Orientation: AAOx4 Purdy Coma Scale Eye Opening: Spontaneous Berto Coma Scale Verbal: Oriented B[place] Coma Scale Motor: Obeys Commands Purdy Coma Scale Total: 15 Speech: Normal - Psychological Associated symptoms: Normal affect, Normal mood - Skin Skin Temperature: Warm Skin Moisture: Dry Skin Color: Normal <JERSEY AVITIA - Last Filed: 06/11/16 01:15> Course - Laboratory Result Diagrams: 06/10/16 23:20 06/10/16 23:20 - Consults Dr. Dela Cruz Time consulted: 00:49 <JERSEY AVITIA - Last Filed: 06/11/16 01:15> - Laboratory Result Diagrams: 06/10/16 23:20 06/11/16 03:47 <TRINITY SANTANA - Last Filed: 06/11/16 06:43> - Re-evaluation Re-evalutation: 06/10/16 22:41 Patient is a 21-year-old male who comes in with high blood sugar, nausea vomiting. Patient clinically appears dehydrated. He is tachycardic. Patient is a type I diabetic. Blood work was obtained. Fluid resuscitation was started. No acute abdomen at this time. Patient states that he has been checking his blood sugar been taking his insulin at home. Mother disagrees with this. 06/11/16 00:41 Patient was discussed with Dr. Dela Cruz will be admitted for DKA. Patient is on his second liter fluid. Son is been ordered. Insulin drip has been ordered. Discussed with patient and family who agree with the plan of admission. Stable time of admission. (TRINITY SANTANA) - Vital Signs Vital signs: Temp Pulse Resp BP Pulse Ox 98 F 122 H 16 123/45 L 100 06/11/16 04:03 06/11/16 04:03 06/11/16 04:03 06/11/16 04:03 06/11/16 04:03 - Laboratory Laboratory results interpreted by me: 06/10/16 06/10/16 06/10/16 23:20 23:20 23:20 WBC 19.4 H Seg Neutrophils % 80.1 H Absolute Neutrophils 15.5 H Carbonic Acid ABG pH ABG pCO2 ABG pO2 ABG HCO3 ABG Total CO2 VBG pH VBG HCO3 Potassium 5.6 H Chloride 93 L Carbon Dioxide 8 L* Anion Gap 38 H Glucose 736 H* Lactic Acid Calcium 10.5 H Alkaline Phosphatase 163 H Creatine Kinase Urine Glucose (UA) >=500 H Urine Ketones 80 H Urine Blood SMALL H 06/10/16 06/11/16 06/11/16 23:20 00:58 00:58 WBC Seg Neutrophils % Absolute Neutrophils Carbonic Acid ABG pH ABG pCO2 ABG pO2 ABG HCO3 ABG Total CO2 VBG pH 7.07 L* VBG HCO3 10.8 L Potassium Chloride Carbon Dioxide Anion Gap Glucose Lactic Acid 5.1 H Calcium Alkaline Phosphatase Creatine Kinase 41 L Urine Glucose (UA) Urine Ketones Urine Blood 06/11/16 06/11/16 03:30 03:47 WBC Seg Neutrophils % Absolute Neutrophils Carbonic Acid 0.67 L ABG pH 7.16 L* ABG pCO2 22.1 L ABG pO2 115.6 H ABG HCO3 7.6 L ABG Total CO2 8.3 L VBG pH VBG HCO3 Potassium 5.5 H Chloride Carbon Dioxide 9 L* Anion Gap 27 H Glucose 428 H* Lactic Acid Calcium Alkaline Phosphatase Creatine Kinase Urine Glucose (UA) Urine Ketones Urine Blood - Consults Dr. Dela Cruz Reason for consultation: 06/11/16 00:49 Patient was discussed with Dr. Dela Cruz and he agrees to admit the patient. (JERSEY AVITIA) Critical Care Note - Critical Care Note Total time excluding time spent on procedures (mins): 35 - evaluation and management of hyperglycemia and a type I diabetic, fluid resuscitation, initiation of insulin protocol, coordination of admission, counseling patient and family <TRINITY SANTANA MORENITA - Last Filed: 06/11/16 06:43> Discharge <JERSEY AVITIA - Last Filed: 06/11/16 01:15> - Discharge Admitting Provider: [facility] Unit Admitted: I[facility] <TRINITY SANTANA - Last Filed: 06/11/16 06:43> - Discharge Clinical Impression: Diabetic ketoacidosis Qualifiers: Diabetes mellitus type: type 1 Diabetes mellitus complication detail: without coma Qualified Code(s): E10.10 - Type 1 diabetes mellitus with ketoacidosis without coma Vomiting Qualifiers: Vomiting type: unspecified Vomiting Intractability: unspecified Nausea presence : unspecified Qualified Code(s): R11.10 - Vomiting, unspecified Condition: Stable Disposition: ADMITTED INPATIENT Scribe Attestation: 06/11/16 06:43 I personally performed the services described in the documentation, reviewed and edited the documentation which was dictated to the scribe in my presence, and it accurately records my words and actions. (TRINITY SANTANA) Scribe Documentation - Scribe Written by Ruben:: Ruben Ortiz, 06/11/2016 0121 acting as scribe for :: María <JERSEY AVITIA - Last Filed: 06/11/16 01:15>
[2016-06-11] MEDS ORDERED: NORMAL SALINE 1000 ML 1,000 ML IV ONE (00:28)
[2016-06-11 00:32] LABS: ANION GAP 38 (5-19)
[2016-06-11 00:33] LABS: GLUCOSE 736 mg/dL (75-110)
[2016-06-11 00:34] LABS: CARBON DIOXIDE 8 mmol/L (22-30)
[2016-06-11] MEDS ORDERED: DEXTROSE 40% GEL 15 GM TUBE PO PRN ×2 (00:45)
[2016-06-11] MEDS ORDERED: DEXTROSE 50%-WATER 25 GM/50 ML DISP.SYRIN IV PRN ×2 (00:45)
[2016-06-11] MEDS ORDERED: GLUCAGON,HUMAN RECOMB 1 MG INJ IM PRN (00:45)
[2016-06-11] MEDS ORDERED: 1/2 NORMAL SALINE 1,000 ML IV PRN (00:52)
[2016-06-11 01:01] LABS: ADD ON TESTING BLD IN LAB ACKNOWLEDGE
[2016-06-11 01:10] LABS: VENOUS BLOOD BASE EXCESS -18.7 mmol/L; VENOUS BLOOD HCO3 10.8 mmol/L (20-32); VENOUS BLOOD PCO2 38.3 mmHg (35-63)
[2016-06-11 01:13] LABS: VENOUS BLOOD PH 7.07 (7.30-7.42)
[2016-06-11 01:15] LABS: MAGNESIUM 1.9 mg/dL (1.6-2.3)
[2016-06-11] MEDS ORDERED: 1/2 NORMAL SALINE 3,000 ML IV ONE (01:15)
[2016-06-11 01:28] LABS: CREATINE KINASE MB 0.33 ng/mL (<4.55)
[2016-06-11 01:34] LABS: TROPONIN I < 0.012 ng/mL
[2016-06-11 02:07] LABS: URINE BARBITURATES SCREEN NEGATIVE; URINE METHADONE SCREEN NEGATIVE; URINE OPIATES LOW NEGATIVE; URINE PHENCYCLIDINE SCREEN NEGATIVE
[2016-06-11] MEDS: NORMAL SALINE 100 ML with INSULIN REGULAR, HUMAN 100 UNIT IV PRN ×4 (03:34→16:02)
[2016-06-11 03:42] LABS: ARTERIAL BLOOD BASE EXCESS -19.3 mmol/L; ARTERIAL BLOOD O2 SATURATION 97.1 % (94-98)
[2016-06-11] MEDS ORDERED: INSULIN REG, HUMAN 100 UNIT/ML 3 ML VIAL (PYX) ONE (03:42)
[2016-06-11] MEDS ORDERED: ACETAMINOPHEN 325 MG TABLET PO PRN (03:51)
[2016-06-11] MEDS ORDERED: MAGNESIUM HYDROXIDE SUSP 30 ML UDCUP PO PRN (03:51)
[2016-06-11] MEDS ORDERED: PROMETHAZINE HCL INJ 25 MG/1 ML VIAL IV PRN (03:56)
--- NOTE | 2016-06-11 04:10 | PDOC H&P ---
History of Present Illness Admission Date/PCP: 06/11/16 01:07 PCP [facility] Patient complains of: Blood sugar problems, vomiting and diarrhea History of Present Illness: ACE POSADA is a 21 year old male well known to the hospitalist service for multiple admissions for type I diabetic ketoacidosis, felt secondary in large part to chronic noncompliance on the part of the patient, who presents to the emergency room for evaluation of onset the evening of the of vomiting, diarrhea, and diffuse lower abdominal cramping pain. No abdominal pain 2 days ago. States he takes his medications as prescribed, but mother, who was present earlier but has now left, stated that patient is noncompliant with his medication. Blood sugar reading at home was too high to be read. Patient had been started on the usual DKA protocol, including vigorous IV fluid hydration, along with insulin drip and multiple Accu-Cheks and/or serum glucose checks. Currently resting quietly, denies pain. Denies any "sore spots" anywhere on his body. Patient has been discussed with emergency room physician who evaluated the patient. Patient is somewhat somnolent, and a bit confused and is able to provide no history whatsoever in terms of acute or chronic events, review of systems, personal habits, family history, etc. No friends or family are present. Old inpatient records are reviewed. . Laboratory results are listed in [facility] and are reviewed. X-ray summary results noted; film has been reviewed. EKG pending. Social history/personal habits: Per prior history and physical on September 26 of last year, he has no children. working at that time at [employer]. No use of alcohol tobacco or illicit drugs. Allergies/adverse reactions NKDA. Home medications Home medications initially autopopulated into [email or web address] may not accurately reflect patient's true medications, dosages, and/or frequencies. Unfortunately, patient not able to list medications/dosages/frequencies. REVIEW OF SYSTEMS: See history and present illness.No further information available this point in time. PHYSICAL EXAMINATION: 6 feet tall. 69.1 kg. BMI 20.7 kg/m. Blood pressure 111/42. Pulse 119 and regular. 99% saturation on room air. Respirations are 15 and unlabored. Temperature 97.8. Female emergency room nurse Rubina and female telegraph repeater technician Marycarmen present. Adequately nourished young male who appears perhaps a bit younger than his stated age. Somnolent. Maintaining airway well. Does open eyes and respond when spoken to in a normal volume voice. However, fairly quickly falls back to sleep. No snoring. Follows basic commands appropriately. Skin is warm and dry. No grossly obvious evidence of rash in areas of skin examined. No subcutaneous nodules palpated. ENT: Hearing grossly normal to normal conversation. Tongue midline on protrusion pink and slightly tacky. Eyes: No scleral icterus. Pupils equal and reactive to light at 4 mm. Nectar conjunctivae. No raccoon eyes. Neck is supple and nontender to gentle active range of motion and palpation. Midline trachea. No palpable thyroid nodule mass enlargement or tenderness. Lymphatic: No palpable cervical or clavicular nodes. Neck and lymphatic exams limited by patient body habitus. Psychiatric: Can't be adequately evaluated due to his current status. Lungs: Auscultation reveals clear and equal breath sounds bilaterally. No use of accessory respiratory muscles. Cardiovascular: Heart regular rate and rhythm, without gallop murmur or rub. No left carotid or abdominal aortic bruits. Subtle right carotid bruit. No ankle or pedal edema. palpable dorsalis pedis pulses. Abdomen: soft, perhaps slightly distended nontender with positive bowel sounds. No upper abdominal mass or organomegaly palpated. Extremities: Feet are warm and dry. No calf tenderness to compression. No grossly obvious visual evidence of calf swelling. Gentle manipulation of lower extremities fails to reveal any obvious evidence of injury or instability to knees hips or ankles. Neurologic: Moves upper extremities grossly normally. Patellar reflexes absent. Absent Babinski. Light touch is intact at feet. Dorsiflexion and plantarflexion of feet 5 / 5 and symmetric. Past Medical History Past Medical History: For more information related a past medical history, please refer to history and physical exam from September [id number], which is available for review. Reviewed today. Cardiac Medical History: Reports: Hyperlipidema Endocrine Medical History: Reports: Diabetes Mellitus Type 1 Psychiatric Medical History: Reports: Depression Past Surgical History Past Surgical History: Reports: Appendectomy Social History Information Source: Patient, Emergency Med Personnel, [facility] Records Smoking Status: Unknown if Ever Smoked Frequency of Alcohol Use: Occasional Hx Recreational Drug Use: No Drugs: None Hx Prescription Drug Abuse: No - Advance Directive Resuscitation Status: Full Code Surrogate healthcare decision maker:: Mother Family History Family History: DM, Hypertension Parental Family History Reviewed: Yes Children Family History Reviewed: NA Sibling(s) Family History Reviewed.: Yes Medication/Allergy Home Medications: RX: Insulin Aspart [Novolog Flexpen] 0 units SQ DAILYP PRN 05/26/16 Potassium Chloride [K-Tab ER] 20 meq PO BID #20 tablet.er 06/13/16 RX: Insulin Glargine,Hum.rec.anlog [Lantus Insulin 100 Unit/mL] 20 unit SUBCUT Q12 #1 insuln.pen 06/13/16 Allergies/Adverse Reactions: No Known Allergies Allergy (Verified 05/25/16 14:31) Physical Exam Vital Signs: Temp Pulse Resp BP Pulse Ox 97.8 F 135 H 15 122/43 L 99 06/11/16 02:36 06/10/16 21:54 06/11/16 02:36 06/11/16 02:36 06/11/16 02:36 Intake & Output 06/10/16 06/11/16 06/12/16 00:59 00:59 00:59 Output Total 820 Balance -820 Weight 69.1 kg Results Laboratory Results: 06/11/16 03:30 Carbonic Acid 0.67 L HCO3/H2CO3 Ratio 11:1 ABG pH 7.16 L* ABG pCO2 22.1 L ABG pO2 115.6 H ABG HCO3 7.6 L ABG O2 Saturation 97.1 ABG Base Excess -19.3 FiO2 ROOM AIR Impressions: Chest X-Ray 06/11/16 00:00 IMPRESSION: NO ACUTE RADIOGRAPHIC FINDING IN THE CHEST. Assessment & Plan - Diagnosis (1) Diabetic ketoacidosis associated with type 1 diabetes mellitus Qualifiers: Diabetes mellitus complication detail: without coma Qualified Code(s ): E10.10 - Type 1 diabetes mellitus with ketoacidosis without coma Is this a current diagnosis for this admission?: YesPlan: Patient will be admitted under DKA protocol. Insulin drip. Vigorous fluid hydration. Strict intake and output. Q 4 hours chemistry 7. Hourly Accu- Cheks. Addition of dextrose to intravenous fluid once serum glucose and/or Accu- Cheks 275 or less. IV Pepcid for gastritis prophylaxis. Patient is full code. I have strongly encouraged patient not to get out of bed, to avoid a fall with injury. Knee high SCDs for DVT prophylaxis, along with subcutaneous Lovenox. Impression and plans were discussed with patient , who concurs. Time spent in evaluation and management of patient: 62 minutes (2) Depression Qualifiers: Depression Type: unspecified Qualified Code(s): F32.9 - Major depressive disorder, single episode, unspecified Is this a current diagnosis for this admission?: YesPlan: Resume home medications as appropriate once these have been determined and reviewed. (3) Noncompliance Is this a current diagnosis for this admission?: Yes (4) Carotid bruit Qualifiers: Laterality: right Qualified Code(s): R09.89 - Other specified symptoms and signs involving the circulatory and respiratory systems Is this a current diagnosis for this admission?: YesPlan: Carotid Doppler study. - Inpatient Certification Based on my medical assessment, after consideration of the patient's comorbidities, presenting symptoms, or acuity I expect that the services needed warrant INPATIENT care.: Yes I certify that my determination is in accordance with my understanding of Medicare's requirements for reasonable and necessary INPATIENT services [42 CFR 412.3e].: Yes Medical Necessity: Need Close Monitoring Due to Risk of Patient Decompensation, Need For IV Fluids, Need For Continuous Telemetry Monitoring, Risk of Complication if Not Cared For in Hospital, Risk of Diagnosis Which Will Require Inpatient Eval/Care/Monitoring Post Hospital Care: D/C or Transfer Summary
[2016-06-11 04:30] LABS: BLOOD UREA NITROGEN 14 mg/dL (7-20); CALCIUM 8.4 mg/dL (8.4-10.2); CHLORIDE 104 mmol/L (98-107); POTASSIUM 5.5 mmol/L (3.6-5.0); SODIUM 139.9 mmol/L (137-145)
[2016-06-11 04:49] LABS: GLUCOSE 428 mg/dL (75-110)
[2016-06-11 04:50] LABS: CARBON DIOXIDE 9 mmol/L (22-30)
[2016-06-11 04:51] LABS: ANION GAP 27 (5-19)
[2016-06-11] MEDS ORDERED: 1/2 NORMAL SALINE 2,000 ML IV ONE ×2 (05:39→06:00)
[2016-06-11] MEDS: DEXTROSE 5%-1/2 NORMAL SALINE 1,000 ML IV PRN ×5 (06:02→21:04)
[2016-06-11 07:36] LABS: HEMATOCRIT 36.4 % (37.9-51.0); HGB HCT DIFFERENCE 1.1; MEAN CORPUSCULAR HEMOGLOBIN 31.2 pg (27.0-33.4); MEAN CORPUSCULAR HGB CONC 34.2 g/dL (32.0-36.0); MEAN CORPUSCULAR VOLUME 91 fl (80-97); RED BLOOD COUNT 3.99 10^6/uL (4.35-5.55); RED CELL DISTRIBUTION WIDTH 12.5 % (11.5-14.0); WHITE BLOOD COUNT 20.5 10^3/uL (4.0-10.5)
[2016-06-11 07:44] LABS: ANION GAP 17 (5-19); BLOOD UREA NITROGEN 11 mg/dL (7-20); CALCIUM 7.9 mg/dL (8.4-10.2); CARBON DIOXIDE 14 mmol/L (22-30); CHLORIDE 106 mmol/L (98-107); CREATININE RESULT 0.69 mg/dL (0.52-1.25); GLUCOSE 209 mg/dL (75-110); SODIUM 136.5 mmol/L (137-145)
[2016-06-11 07:54] LABS: POTASSIUM 4.3 mmol/L (3.6-5.0)
[2016-06-11 08:25] LABS: HEMOGLOBIN 12.5 g/dL (13.5-17.0)
[2016-06-11 08:27] LABS: BASOPHILS % (MANUAL) 0 % (0-2); EOSINOPHILS % (MANUAL) 0 % (0-6); LYMPHOCYTES % (MANUAL) 17 % (13-45); TOTAL CELLS COUNTED 100
[2016-06-11 08:28] LABS: RBC MORPHOLOGY COMMENT NORMO-CYTIC/CHROMIC
--- NOTE | 2016-06-11 09:34 | EKG REPORT ---
SEVERITY:- OTHERWISE NORMAL ECG - SINUS TACHYCARDIA : Confirmed by: Anurag Mata 11-Jun-2016 09:32:52
[2016-06-11] MEDS ORDERED: DOCUSATE SODIUM 100 MG CAPSULE PO SCH (10:00)
[2016-06-11] MEDS: ENOXAPARIN SODIUM INJ 40 MG/0.4 ML DISP.SYRIN SUBCUT SCH (10:01)
[2016-06-11] MEDS: FAMOTIDINE INJ/PF 20 MG/2 ML SDV IV SCH ×2 (10:02→21:13)
[2016-06-11 12:07] LABS: ANION GAP 8 (5-19); BLOOD UREA NITROGEN 8 mg/dL (7-20); CALCIUM 8.2 mg/dL (8.4-10.2); CARBON DIOXIDE 20 mmol/L (22-30); CHLORIDE 110 mmol/L (98-107); CREATININE RESULT 0.47 mg/dL (0.52-1.25); GLUCOSE 137 mg/dL (75-110); POTASSIUM 3.7 mmol/L (3.6-5.0); SODIUM 138.4 mmol/L (137-145)
[2016-06-11] MEDS ORDERED: NORMAL SALINE 1000 ML 2,000 ML IV PRN (12:18)
--- NOTE | 2016-06-11 13:23 | PDOC PROGRESS REPORT ---
Subjective Progress Note for:: 06/11/16 Subjective:: Patient is still looking extremely ill Has no abdominal pain and is not vomiting at this time His white blood count is still 20,000; his breath has a strong odor of acetone Physical Exam Vital Signs: Temp Pulse Resp BP Pulse Ox 97.6 F 105 H 12 113/45 L 100 06/11/16 07:21 06/11/16 07:21 06/11/16 07:21 06/11/16 07:21 06/11/16 07:21 Intake & Output 06/10/16 06/11/16 06/12/16 00:59 00:59 00:59 Intake Total 2765 Output Total 900 Balance 1865 General appearance: PRESENT: mild distress, thin, other - Looks very ill Head exam: PRESENT: atraumatic, normocephalic Eye exam: PRESENT: conjunctiva pink, EOMI, PERRLA. ABSENT: scleral icterus Mouth exam: PRESENT: dry mucosa Neck exam: ABSENT: carotid bruit, JVD, lymphadenopathy, thyromegaly Respiratory exam: PRESENT: clear to auscultation saul. ABSENT: rales, rhonchi, wheezes Cardiovascular exam: PRESENT: RRR. ABSENT: diastolic murmur, rubs, systolic murmur GI/Abdominal exam: PRESENT: normal bowel sounds, soft. ABSENT: distended, guarding, mass, organolmegaly, rebound, tenderness Neurological exam: PRESENT: alert, awake, oriented to person, oriented to place , oriented to time, oriented to situation, CN II-XII grossly intact. ABSENT: motor sensory deficit Results Laboratory Results: 06/11/16 07:11 06/11/16 11:43 06/11/16 06/11/16 06/11/16 05:51 07:11 07:11 WBC 20.5 H RBC 3.99 L Hgb 12.5 L D Hct 36.4 L MCV 91 MCH 31.2 MCHC 34.2 RDW 12.5 Plt Count 266 Seg Neutrophils % Not Reportable Lymphocytes % Not Reportable Monocytes % Not Reportable Eosinophils % Not Reportable Basophils % Not Reportable Absolute Neutrophils Not Reportable Absolute Lymphocytes Not Reportable Absolute Monocytes Not Reportable Absolute Eosinophils Not Reportable Absolute Basophils Not Reportable Sodium 136.5 L Potassium 4.3 D Chloride 106 Carbon Dioxide 14 L Anion Gap 17 BUN 11 Creatinine 0.69 Est GFR ( Amer) > 60 Est GFR (Non-Af Amer) > 60 Glucose 209 H Lactic Acid 1.2 Calcium 7.9 L 06/11/16 11:43 WBC RBC Hgb Hct MCV MCH MCHC RDW Plt Count Seg Neutrophils % Lymphocytes % Monocytes % Eosinophils % Basophils % Absolute Neutrophils Absolute Lymphocytes Absolute Monocytes Absolute Eosinophils Absolute Basophils Sodium 138.4 Potassium 3.7 Chloride 110 H Carbon Dioxide 20 L Anion Gap 8 BUN 8 Creatinine 0.47 L Est GFR ( Amer) > 60 Est GFR (Non-Af Amer) > 60 Glucose 137 H Lactic Acid Calcium 8.2 L 06/10/16 06/11/16 06/11/16 23:20 07:11 11:43 WBC 19.4 H 20.5 H Seg Neuts % (Manual) 80 H Lymphocytes % (Manual) 17 Sodium 138.4 Potassium 3.7 Chloride 110 H Carbon Dioxide 20 L Glucose 137 H Impressions: Carotid Doppler Study 06/11/16 00:00 IMPRESSION: NO HEMODYNAMICALLY SIGNIFICANT STENOSIS. Chest X-Ray 06/11/16 00:00 IMPRESSION: NO ACUTE RADIOGRAPHIC FINDING IN THE CHEST. Assessment & Plan - Diagnosis (1) DKA (diabetic ketoacidosis) Qualifiers: Diabetes mellitus type: type 1 Diabetes mellitus complication detail: without coma Qualified Code(s): E10.10 - Type 1 diabetes mellitus with ketoacidosis without coma Is this a current diagnosis for this admission?: YesPlan: Continue DKA protocol (2) Leukocytosis Qualifiers: Leukocytosis type: unspecified Qualified Code(s): D72.829 - Elevated white blood cell count, unspecified Is this a current diagnosis for this admission?: YesPlan: Is persistent even after hydration We will obtain blood cultures and initiate antibiotic therapy with Cipro and Flagyl Stools for C. difficile are pending (3) Dehydration Is this a current diagnosis for this admission?: YesPlan: We will give the patient an extra 2000 mL of normal saline Continue D5 and half-normal saline with K ; initiate by mouth clear liquids - Time Time Spent with patient: 25-34 minutes
[2016-06-11 16:26] LABS: ANION GAP 8 (5-19); BLOOD UREA NITROGEN 7 mg/dL (7-20); CALCIUM 7.9 mg/dL (8.4-10.2); CARBON DIOXIDE 20 mmol/L (22-30); CHLORIDE 111 mmol/L (98-107); CREATININE RESULT 0.51 mg/dL (0.52-1.25); GLUCOSE 105 mg/dL (75-110); POTASSIUM 3.7 mmol/L (3.6-5.0); SODIUM 139.3 mmol/L (137-145)
[2016-06-11] MEDS: METRONIDAZOLE 500 MG/NS RTU 100 ML IV SCH ×2 (18:02→23:07)
[2016-06-11] MEDS: CIPROFLOXACIN 400 MG/D5W RTU 200 ML IV SCH (21:10)
[2016-06-12] MEDS: DEXTROSE 5%-1/2 NORMAL SALINE 1,000 ML IV PRN ×2 (00:23→03:47)
[2016-06-12] MEDS: METRONIDAZOLE 500 MG/NS RTU 100 ML IV SCH ×2 (05:16→13:05)
[2016-06-12] MEDS: CIPROFLOXACIN 400 MG/D5W RTU 200 ML IV SCH (10:26)
[2016-06-12] MEDS: ENOXAPARIN SODIUM INJ 40 MG/0.4 ML DISP.SYRIN SUBCUT SCH (10:27)
[2016-06-12] MEDS: FAMOTIDINE INJ/PF 20 MG/2 ML SDV IV SCH (10:27)
[2016-06-12 11:47] LABS: ANION GAP 13 (5-19); CALCIUM 8.3 mg/dL (8.4-10.2); CARBON DIOXIDE 18 mmol/L (22-30); CHLORIDE 110 mmol/L (98-107); CREATININE RESULT 0.43 mg/dL (0.52-1.25); GLUCOSE 137 mg/dL (75-110); SODIUM 141.1 mmol/L (137-145)
[2016-06-12 12:21] LABS: BLOOD UREA NITROGEN < 2 mg/dL (7-20); POTASSIUM 4.3 mmol/L (3.6-5.0)
[2016-06-12] MEDS ORDERED: INSULIN GLARGINE,HUM.REC.ANLOG 300 UNIT/3 ML INSULN.PEN SUBCUT ONE (14:00)
--- NOTE | 2016-06-12 14:26 | PDOC PROGRESS REPORT ---
Subjective Progress Note for:: 06/12/16 Subjective:: feeling well anion gap closed no abdominal pain or vomiting CT abdomen and pelvis was negative Physical Exam Vital Signs: Temp Pulse Resp BP Pulse Ox 97.6 F 80 16 109/63 100 06/12/16 08:23 06/12/16 08:23 06/12/16 08:23 06/12/16 08:23 06/12/16 08:23 Intake & Output 06/11/16 06/12/16 06/13/16 00:59 00:59 00:59 Intake Total 4622 4020 Output Total 900 Balance 3722 4020 Weight 76.7 kg General appearance: PRESENT: no acute distress, well-developed, well-nourished Head exam: PRESENT: atraumatic, normocephalic Eye exam: PRESENT: conjunctiva pink, EOMI, PERRLA. ABSENT: scleral icterus Ear exam: PRESENT: normal external ear exam Mouth exam: PRESENT: moist, tongue midline Neck exam: ABSENT: carotid bruit, JVD, lymphadenopathy, thyromegaly Respiratory exam: PRESENT: clear to auscultation saul. ABSENT: rales, rhonchi, wheezes Cardiovascular exam: PRESENT: RRR. ABSENT: diastolic murmur, rubs, systolic murmur Pulses: PRESENT: normal dorsalis pedis pul Vascular exam: PRESENT: normal capillary refill GI/Abdominal exam: PRESENT: normal bowel sounds, soft. ABSENT: distended, guarding, mass, organolmegaly, rebound, tenderness Rectal exam: PRESENT: deferred Extremities exam: PRESENT: full ROM. ABSENT: calf tenderness, clubbing, pedal edema Neurological exam: PRESENT: alert, awake, oriented to person, oriented to place , oriented to time, oriented to situation, CN II-XII grossly intact. ABSENT: motor sensory deficit Psychiatric exam: PRESENT: appropriate affect, normal mood. ABSENT: homicidal ideation, suicidal ideation Skin exam: PRESENT: dry, intact, warm. ABSENT: cyanosis, rash Results Laboratory Results: 06/11/16 07:11 06/12/16 11:19 06/11/16 06/12/16 15:57 11:19 Sodium 139.3 141.1 Potassium 3.7 4.3 Chloride 111 H 110 H Carbon Dioxide 20 L 18 L Anion Gap 8 13 BUN 7 < 2 L Creatinine 0.51 L 0.43 L Est GFR ( Amer) > 60 > 60 Est GFR (Non-Af Amer) > 60 > 60 Glucose 105 137 H Calcium 7.9 L 8.3 L Impressions: Carotid Doppler Study 06/11/16 00:00 IMPRESSION: NO HEMODYNAMICALLY SIGNIFICANT STENOSIS. Chest X-Ray 06/11/16 00:00 IMPRESSION: NO ACUTE RADIOGRAPHIC FINDING IN THE CHEST. Abdomen/Pelvis CT 06/12/16 06:00 IMPRESSION: No CT findings to explain history of leukocytosis Post appendectomy. Trace bilateral pleural effusions with trace free pelvic fluid. Assessment & Plan - Diagnosis (1) DKA (diabetic ketoacidosis) Qualifiers: Diabetes mellitus type: type 1 Diabetes mellitus complication detail: without coma Qualified Code(s): E10.10 - Type 1 diabetes mellitus with ketoacidosis without coma Is this a current diagnosis for this admission?: Yes (2) Leukocytosis Qualifiers: Leukocytosis type: unspecified Qualified Code(s): D72.829 - Elevated white blood cell count, unspecified Is this a current diagnosis for this admission?: Yes (3) Dehydration Is this a current diagnosis for this admission?: Yes - Time Time Spent with patient: resume Lantus and Lispro ACHS resume diet spoke at [facility] with mother and case [facility] Home nursing for med supervision will be requested APS consult Patient denies negligence and states "he was ill and vomiting again " Time Spent with patient: 25-34 minutes
[2016-06-12] MEDS ORDERED: FUROSEMIDE INJ/PF 20 MG/2 ML SDV IV ONE (14:45)
[2016-06-12] MEDS: INSULIN LISPRO 100 UNIT/ML 3 ML VIAL SUBCUT PRN ×2 (16:50→22:08)
[2016-06-12] MEDS ORDERED: INSULIN LISPRO 100 UNIT/ML 3 ML VIAL ONE (16:50)
[2016-06-12] MEDS: INSULIN GLARGINE,HUM.REC.ANLOG 300 UNIT/3 ML INSULN.PEN SUBCUT SCH (22:08)
[2016-06-13 06:10] LABS: ABSOLUTE BASOPHILS # (AUTO) 0.1 10^3/uL (0.0-0.2); ABSOLUTE EOSINOPHILS # (AUTO) 0.1 10^3/uL (0.0-0.6); ABSOLUTE LYMPHOCYTES (AUTO) 3.3 10^3/uL (0.5-4.7); ABSOLUTE MONOCYTES (AUTO) 0.4 10^3/uL (0.1-1.4); ABSOLUTE NEUT (AUTO) 3.3 10^3/uL (1.7-8.2); BASOPHILS % (AUTO) 0.8 % (0-2); EOSINOPHILS % (AUTO) 1.3 % (0-6); HEMATOCRIT 36.6 % (37.9-51.0); HEMOGLOBIN 12.8 g/dL (13.5-17.0); HGB HCT DIFFERENCE 1.8; LYMPHOCYTES % (AUTO) 46.2 % (13-45); MEAN CORPUSCULAR HEMOGLOBIN 30.9 pg (27.0-33.4); MEAN CORPUSCULAR VOLUME 88 fl (80-97); RED BLOOD COUNT 4.15 10^6/uL (4.35-5.55); RED CELL DISTRIBUTION WIDTH 12.5 % (11.5-14.0); SEGMENTED NEUTROPHILS % (AUTO) 46.7 % (42-78); WHITE BLOOD COUNT 7.1 10^3/uL (4.0-10.5)
[2016-06-13 06:32] LABS: ANION GAP 11 (5-19); BLOOD UREA NITROGEN 7 mg/dL (7-20); CALCIUM 9.3 mg/dL (8.4-10.2); CHLORIDE 105 mmol/L (98-107); CREATININE RESULT 0.46 mg/dL (0.52-1.25); GLUCOSE 87 mg/dL (75-110); SODIUM 144.8 mmol/L (137-145)
[2016-06-13 06:35] LABS: POTASSIUM 2.9 mmol/L (3.6-5.0)
[2016-06-13 06:43] LABS: CARBON DIOXIDE 29 mmol/L (22-30)
[2016-06-13] MEDS ORDERED: POTASSIUM CHLORIDE 10 MEQ TABLET.SA PO ONE (09:00)
[2016-06-13] MEDS: POTASSI CL 20 MEQ/50 ML RIDER 50 ML IV SCH ×2 (09:08→11:06)
[2016-06-13] MEDS: ENOXAPARIN SODIUM INJ 40 MG/0.4 ML DISP.SYRIN SUBCUT SCH (09:10)
[2016-06-13] MEDS: INSULIN GLARGINE,HUM.REC.ANLOG 300 UNIT/3 ML INSULN.PEN SUBCUT SCH (09:12)
[2016-06-13] MEDS: INSULIN LISPRO 100 UNIT/ML 3 ML VIAL SUBCUT PRN (11:47)
[2016-06-13 16:24] VITALS: BP 132/76
--- NOTE | 2016-06-14 14:17 | PDOC DISCHARGE SUMMARY ---
General - Admit/Disc Date/PCP Admission Date/Primary Care Provider: 06/11/16 03:51 Discharge Date: 06/13/16 - Discharge Diagnosis (1) DKA (diabetic ketoacidosis) Is this a current diagnosis for this admission?: Yes (2) Leukocytosis Is this a current diagnosis for this admission?: Yes (3) Dehydration Is this a current diagnosis for this admission?: Yes - Additional Information Resuscitation Status: Full Code Discharge Diet: As Tolerated Discharge Activity: Activity As Tolerated Home Medications: Insulin Aspart [Novolog Flexpen] 0 units SQ DAILYP PRN 05/26/16 Insulin Glargine,Hum.rec.anlog [Lantus Insulin 100 Unit/mL] 20 unit SUBCUT Q12 # 1 insuln.pen 06/13/16 Potassium Chloride [K-Tab ER] 20 meq PO BID #20 tablet.er 06/13/16 History of Present Illness Patient complains of: abdominal cramping and vomiting History of Present Illness: ACE POSADA is a 21 year old male male well known to the hospitalist service for multiple admissions for type I diabetic ketoacidosis, felt secondary in large part to chronic noncompliance on the part of the patient, who presents to the emergency room for evaluation of her the evening of the of vomiting, diarrhea, and diffuse lower abdominal cramping pain. No abdominal pain 2 days ago. States he takes his medications as prescribed, but mother, who is present earlier, states it patient is noncompliant with his medication. Blood sugar reading at home was too high to be read. Patient had been started on the usual DKA protocol, including vigorous IV fluid hydration, along with insulin drip and multiple Accu-Cheks and/or serum glucose checks. Currently resting quietly, denies pain. Denies any "sore spots" anywhere on his body. Patient has been discussed with emergency room physician who evaluated the patient. Patient is somewhat somnolent, and a bit confused and is able to provide no history whatsoever in terms of acute or chronic events, review of systems, personal habits, family history, etc. No friends or family are present. Old inpatient records are reviewed. Hospital Course Hospital Course: One of multiple admissions for this young patient with DM type 1 who was readmitted with ketoacidosis Patient states "he was ill with vomiting and diarrhea " Mother states "he does not take his insulin as prescribed, does not follow his diet " Patient had severe abdominal pain and leukocytosis on admission A Ct abdominal and pelvis was negative leukocytosis resolved with hydration Patient was asymptomatic at discharge Physical Exam Vital Signs: Temp Pulse Resp BP Pulse Ox 98.6 F 86 16 132/76 H 97 06/13/16 14:41 06/13/16 14:41 06/13/16 14:41 06/13/16 14:41 06/13/16 14:41 Intake & Output 06/13/16 06/14/16 06/15/16 00:59 00:59 00:59 Intake Total 8411 155 Balance 8411 155 Weight 76.7 kg 73.6 kg General appearance: PRESENT: no acute distress, well-developed, well-nourished Head exam: PRESENT: atraumatic, normocephalic Eye exam: PRESENT: conjunctiva pink, EOMI, PERRLA. ABSENT: scleral icterus Ear exam: PRESENT: normal external ear exam Mouth exam: PRESENT: moist, tongue midline Neck exam: ABSENT: carotid bruit, JVD, lymphadenopathy, thyromegaly Respiratory exam: PRESENT: clear to auscultation saul. ABSENT: rales, rhonchi, wheezes Cardiovascular exam: PRESENT: RRR. ABSENT: diastolic murmur, rubs, systolic murmur Pulses: PRESENT: normal dorsalis pedis pul Vascular exam: PRESENT: normal capillary refill GI/Abdominal exam: PRESENT: normal bowel sounds, soft. ABSENT: distended, guarding, mass, organolmegaly, rebound, tenderness Rectal exam: PRESENT: deferred Extremities exam: PRESENT: full ROM. ABSENT: calf tenderness, clubbing, pedal edema Neurological exam: PRESENT: alert, awake, oriented to person, oriented to place , oriented to time, oriented to situation, CN II-XII grossly intact. ABSENT: motor sensory deficit Psychiatric exam: PRESENT: appropriate affect, normal mood. ABSENT: homicidal ideation, suicidal ideation Skin exam: PRESENT: dry, intact, warm. ABSENT: cyanosis, rash Results Laboratory Results: 06/13/16 05:16 06/13/16 05:16 Labs- Last Values WBC 7.1 10^3/uL (4.0-10.5) 06/13/16 05:16 RBC 4.15 10^6/uL (4.35-5.55) L 06/13/16 05:16 Hgb 12.8 g/dL (13.5-17.0) L 06/13/16 05:16 Hct 36.6 % (37.9-51.0) L 06/13/16 05:16 MCV 88 fl (80-97) 06/13/16 05:16 MCH 30.9 pg (27.0-33.4) 06/13/16 05:16 MCHC 35.0 g/dL (32.0-36.0) 06/13/16 05:16 RDW 12.5 % (11.5-14.0) 06/13/16 05:16 Plt Count 225 10^3/uL (150-450) 06/13/16 05:16 Total Counted 100 06/11/16 07:11 Seg Neutrophils % 46.7 % (42-78) 06/13/16 05:16 Seg Neuts % (Manual) 80 % (42-78) H 06/11/16 07:11 Lymphocytes % 46.2 % (13-45) H 06/13/16 05:16 Lymphocytes % (Manual) 17 % (13-45) 06/11/16 07:11 Monocytes % 5.0 % (3-13) 06/13/16 05:16 Monocytes % (Manual) 3 % (3-13) 06/11/16 07:11 Eosinophils % 1.3 % (0-6) 06/13/16 05:16 Eosinophils % (Manual) 0 % (0-6) 06/11/16 07:11 Basophils % 0.8 % (0-2) 06/13/16 05:16 Basophils % (Manual) 0 % (0-2) 06/11/16 07:11 Absolute Neutrophils 3.3 10^3/uL (1.7-8.2) 06/13/16 05:16 Abs Neuts (Manual) 16.4 10^3/uL (1.7-8.2) H 06/11/16 07:11 Absolute Lymphocytes 3.3 10^3/uL (0.5-4.7) 06/13/16 05:16 Abs Lymphs (Manual) 3.5 10^3/uL (0.5-4.7) 06/11/16 07:11 Absolute Monocytes 0.4 10^3/uL (0.1-1.4) 06/13/16 05:16 Abs Monocytes (Manual) 0.6 10^3/uL (0.1-1.4) 06/11/16 07:11 Absolute Eosinophils 0.1 10^3/uL (0.0-0.6) 06/13/16 05:16 Absolute Eos (Manual) 0.0 10^3/uL (0.0-0.6) 06/11/16 07:11 Absolute Basophils 0.1 10^3/uL (0.0-0.2) 06/13/16 05:16 Abs Basophils (Manual) 0.0 10^3/uL (0.0-0.2) 06/11/16 07:11 Platelet Comment ADEQUATE 06/11/16 07:11 RBC Morph Comment NORMO-CYTIC/CHROMIC 06/11/16 07:11 Carbonic Acid 0.67 mmol/L (1.05-1.35) L 06/11/16 03:30 HCO3/H2CO3 Ratio 11:1 06/11/16 03:30 ABG pH 7.16 (7.35-7.45) L* 06/11/16 03:30 ABG pCO2 22.1 mmHg (35-45) L 06/11/16 03:30 ABG pO2 115.6 mmHg (80-100) H 06/11/16 03:30 ABG HCO3 7.6 mmol/L (20-26) L 06/11/16 03:30 ABG Total CO2 8.3 mmol/L (23-27) L 06/11/16 03:30 ABG O2 Saturation 97.1 % (94-98) 06/11/16 03:30 ABG Base Excess -19.3 mmol/L 06/11/16 03:30 VBG pH 7.07 (7.30-7.42) L* 06/11/16 00:58 VBG pCO2 38.3 mmHg (35-63) 06/11/16 00:58 VBG HCO3 10.8 mmol/L (20-32) L 06/11/16 00:58 VBG Base Excess -18.7 mmol/L 06/11/16 00:58 FiO2 ROOM AIR 06/11/16 03:30 Sodium 144.8 mmol/L (137-145) 06/13/16 05:16 Potassium 2.9 mmol/L (3.6-5.0) L* D 06/13/16 05:16 Chloride 105 mmol/L (98-107) 06/13/16 05:16 Carbon Dioxide 29 mmol/L (22-30) D 06/13/16 05:16 Anion Gap 11 (5-19) 06/13/16 05:16 BUN 7 mg/dL (7-20) 06/13/16 05:16 Creatinine 0.46 mg/dL (0.52-1.25) L 06/13/16 05:16 Est GFR ( Amer) > 60 (>60) 06/13/16 05:16 Est GFR (Non-Af Amer) > 60 (>60) 06/13/16 05:16 Glucose 87 mg/dL (75-110) 06/13/16 05:16 POC Glucose 138 mg/dL (70-110) H 06/13/16 16:25 Lactic Acid 1.2 mmol/L (0.7-2.1) 06/11/16 05:51 Calcium 9.3 mg/dL (8.4-10.2) 06/13/16 05:16 Magnesium 1.9 mg/dL (1.6-2.3) 06/10/16 23:20 Total Bilirubin 0.7 mg/dL (0.2-1.3) 06/10/16 23:20 Direct Bilirubin 0.4 mg/dL (0.0-0.4) 06/10/16 23:20 Indirect Bilirubin Not Reportable 06/10/16 23:20 Neonat Total Bilirubin Not Reportable 06/10/16 23:20 AST 29 U/L (17-59) 06/10/16 23:20 ALT 39 U/L (21-72) 06/10/16 23:20 Alkaline Phosphatase 163 U/L (38-126) H 06/10/16 23:20 Creatine Kinase 41 U/L (55-170) L 06/10/16 23:20 CK-MB (CK-2) 0.33 ng/mL (<4.55) 06/10/16 23:20 Troponin I < 0.012 ng/mL 06/10/16 23:20 Total Protein 7.8 g/dL (6.3-8.2) 06/10/16 23:20 Albumin 5.0 g/dL (3.5-5.0) 06/10/16 23:20 TSH 0.70 uIU/mL (0.47-4.68) 06/10/16 23:20 Urine Color COLORLESS 06/10/16 23:20 Urine Appearance CLEAR 06/10/16 23:20 Urine pH 5.0 (5.0-9.0) 06/10/16 23:20 Ur Specific [place] 1.026 06/10/16 23:20 Urine Protein NEGATIVE mg/dL (NEGATIVE) 06/10/16 23:20 Urine Glucose (UA) >=500 mg/dL (NEGATIVE) H 06/10/16 23:20 Urine Ketones 80 mg/dL (NEGATIVE) H 06/10/16 23:20 Urine Blood SMALL (NEGATIVE) H 06/10/16 23:20 Urine Nitrite NEGATIVE (NEGATIVE) 06/10/16 23:20 Urine Bilirubin NEGATIVE (NEGATIVE) 06/10/16 23:20 Urine Urobilinogen NEGATIVE mg/dL (<2.0) 06/10/16 23:20 Ur Leukocyte Esterase NEGATIVE (NEGATIVE) 06/10/16 23:20 Urine WBC (Auto) 0 /HPF 06/10/16 23:20 Urine RBC (Auto) 0 /HPF 06/10/16 23:20 Urine Mucus (Auto) RARE /LPF 06/10/16 23:20 Urine Ascorbic Acid NEGATIVE (NEGATIVE) 06/10/16 23:20 Urine Opiates Screen NEGATIVE 06/10/16 23:20 Urine Methadone Screen NEGATIVE 06/10/16 23:20 Ur Barbiturates Screen NEGATIVE 06/10/16 23:20 Ur Phencyclidine Scrn NEGATIVE 06/10/16 23:20 Ur Amphetamines Screen NEGATIVE 06/10/16 23:20 U Benzodiazepines Scrn NEGATIVE 06/10/16 23:20 Urine Cocaine Screen NEGATIVE 06/10/16 23:20 U Marijuana (THC) Screen NEGATIVE 06/10/16 23:20 Impressions: Carotid Doppler Study 06/11/16 00:00 IMPRESSION: NO HEMODYNAMICALLY SIGNIFICANT STENOSIS. Chest X-Ray 06/11/16 00:00 IMPRESSION: NO ACUTE RADIOGRAPHIC FINDING IN THE CHEST. Abdomen/Pelvis CT 06/12/16 06:00 IMPRESSION: No CT findings to explain history of leukocytosis Post appendectomy. Trace bilateral pleural effusions with trace free pelvic fluid. Plan Discharge Plan: Home nursing for medication supervision hoping that patient's compliance will improve APS consult
== END 2016-06-13 18:04 | disposition home or self-care (01) | DRG 639 ==
LOC: ER 21:41 → EH 06-11 01:07 → UNDOADMIN 06-11 01:07 → EH 06-11 03:51 → 3S 06-11 04:08 → EH 06-11 04:08
PROVIDERS: ADMIT Family Medicine; ATTEND Family Medicine
DX: E10.10 Type 1 diabetes mellitus with ketoacidosis without coma (principal); E86.0 Dehydration; E78.5 Hyperlipidemia, unspecified; F32.9 Major depressive disorder, single episode, unspecified; Z91.14 Patient's other noncompliance with medication regimen; Z83.3 Family history of diabetes mellitus; Z82.49 Family history of ischemic heart disease and other diseases of the circulatory system
CPT/HCPCS: 36415; 36600; 71010; 74177; 80048; 80053; 80307; 81001; 82550; 82553; 82803; 82962; 83605; 83735; 84443; 84484; 85025; 87040; 93005; 93010; 93880; 99291; J0744; J1650; J1815; J1940; J3480; J3490; J7030; J7120; S0028